=== PATIENT | female | born 1980 | race Caucasian/White ===

== ENCOUNTER → 2019-07-07 09:27 | Outpatient (CLI) | payer BC, SELFPAY ==
--- NOTE | 2019-07-07 09:34 | US_ITS ---
PROCEDURE: US FNA THYROID CLINICAL INDICATION: thyroid nodule Dominant right thyroid nodule COMPARISON: No exams were available for comparison TECHNIQUE: Following obtaining informed consent, using aseptic technique and local anesthesia with buffered lidocaine, fine-needle aspiration was performed of the nodule of interest using sonographic guidance. 3 passes were made into the nodule with a 21-gauge needle. Specimen was given to cytology. FINDINGS: CYTOLOGY: Nondiagnostic IMPRESSION: Nondiagnostic FNA. Recommend repeat with pathologist present The patient tolerated the procedure well without evidence of immediate complications and left the ultrasound suite in stable condition. Dictated by: Eleazar Rodriguez MD 07/18/2019 12:17 Electronically signed by Eleazar Rodriguez MD in [place] 07/18/2019 12:17
== END ==
PROVIDERS: PCP General Practice; Visit Provider Otolaryngology
DX: E04.1 Nontoxic single thyroid nodule (principal)
CPT/HCPCS: 10005; 76942

== ENCOUNTER 2023-12-28 17:54 | Emergency (ER) | payer BC, SELFPAY ==
[2023-12-28 17:56] VITALS: BP 148/80; PULSE 83; RESP 18; TEMP 36.9; O2SAT 97; BMI 36.6
--- NOTE | 2023-12-28 18:05 | XR_ITS ---
PROCEDURE INFORMATION: Exam: XR Right Shoulder Exam date and time: 12/28/2023 6:07 PM Age: 43 years old Clinical indication: Pain; Elbow; Right TECHNIQUE: Imaging protocol: Radiologic exam of the right shoulder. Views: 2 or more views. Total images: 3 COMPARISON: No relevant prior studies available. FINDINGS: Bones/joints: No acute fracture, joint dislocation, or AC joint separation. Mild degenerative changes AC joint. Glenohumeral joint is appropriate for age. Subacromial distance is maintained. No concerning bone lesions. Soft tissues: Unremarkable soft tissues. IMPRESSION: 1. No acute osseous abnormality. 2. Mild degenerative change of the AC joint.
--- NOTE | 2023-12-28 18:07 | XR_ITS ---
PROCEDURE INFORMATION: Exam: XR Right Elbow Exam date and time: 12/28/2023 6:18 PM Age: 43 years old Clinical indication: Pain; Elbow; Right TECHNIQUE: Imaging protocol: Radiologic exam of the right elbow. Views: 3 or more views. Total images: 3 COMPARISON: CR XR FOREARM RT 2V 12/28/2023 6:17 PM FINDINGS: Bones/joints: No acute fracture, joint dislocation, or joint effusion. No concerning bone lesions or calcifications. Joint spaces are well maintained. Soft tissues: Unremarkable soft tissues. IMPRESSION: Negative right elbow.
--- NOTE | 2023-12-28 18:08 | XR_ITS ---
PROCEDURE INFORMATION: Exam: XR Right Forearm Exam date and time: 12/28/2023 6:17 PM Age: 43 years old Clinical indication: Pain; Elbow; Right TECHNIQUE: Imaging protocol: Radiologic exam of the right forearm. Views: 2 views. Total images: 2 COMPARISON: CR XR WRIST RT 2V 12/28/2023 6:15 PM FINDINGS: Bones/joints: No acute fracture or joint dislocation. No concerning bone lesions or calcifications. Joint spaces are well maintained. Soft tissues: Unremarkable soft tissues. IMPRESSION: Negative right forearm.
--- NOTE | 2023-12-28 18:09 | XR_ITS ---
PROCEDURE INFORMATION: Exam: XR Right Hand Exam date and time: 12/28/2023 6:13 PM Age: 43 years old Clinical indication: Pain; Elbow; Right TECHNIQUE: Imaging protocol: Radiologic exam of the right hand. Views: 1 or 2 views. Total images: 3 COMPARISON: No relevant prior studies available. FINDINGS: Bones/joints: No acute fracture or joint dislocation. No concerning bone lesions or calcifications. Joint spaces are well maintained. Tiny enthesophyte base of middle phalanx index finger. Soft tissues: Unremarkable soft tissues. IMPRESSION: Negative right hand.
--- NOTE | 2023-12-28 18:10 | XR_ITS ---
PROCEDURE INFORMATION: Exam: XR Right Humerus Exam date and time: 12/28/2023 6:10 PM Age: 43 years old Clinical indication: Pain; Elbow; Right TECHNIQUE: Imaging protocol: Radiologic exam of the right humerus. Views: 2 or more views. Total images: 2 COMPARISON: CR Shoulder R 12/28/2023 6:07 PM FINDINGS: Bones/joints: No acute fracture or joint dislocation. No concerning bone lesions or calcifications. Joint spaces are well maintained. Mild degenerative change AC joint. Soft tissues: Unremarkable soft tissues. IMPRESSION: Negative right humerus.
--- NOTE | 2023-12-28 18:11 | XR_ITS ---
PROCEDURE INFORMATION: Exam: XR Right Wrist Exam date and time: 12/28/2023 6:15 PM Age: 43 years old Clinical indication: Pain; Elbow; Right TECHNIQUE: Imaging protocol: Radiologic exam of the right wrist. Views: 1 or 2 views. Total images: 3 COMPARISON: CR XR HAND RT 2V 12/28/2023 6:13 PM FINDINGS: Bones/joints: No acute fracture or joint dislocation. No concerning bone lesions or calcifications. Joint spaces are well maintained. Carpal alignment is preserved. Soft tissues: Question mild soft tissue swelling. IMPRESSION: 1. Negative right wrist. 2. Question mild soft tissue swelling.
--- NOTE | 2023-12-28 18:19 | ED_ITS ---
Discharge Plan Disposition Patient Disposition: Home, Self-Care Condition: Good Prescriptions Prescriptions: New prednisone 20 mg tablet 20 mg PO BID 3 Days Qty: 6 0RF No Action omeprazole 40 mg capsule,delayed release(DR/EC) 40 mg PO DAILY Patient Comments: TAKE 1 CAPSULE BY MOUTH ONCE DAILY levothyroxine 150 mcg tablet 150 mcg PO DAILY Patient Comments: TAKE 1 TABLET BY MOUTH ONCE DAILY Referrals Follow up/Referrals: Naresh Rodriguez DO [Staff Physician] - See instructions Cameron Nolen MD [Primary Care Provider] - See instructions Activity Restrictions/Add. Instructions Additional Instructions/Restrictions: Rest the extremity, apply ice for 15 minutes as tolerated three or four times per day, Wear the tad wrap for compression, Elevate the extremity as tolerated while you are resting. Take ibuprofen for pain. Follow up with Dr. Rodriguez (orthopedics) if you continue to have symptoms of elbow pain. I put in a referral but you need to call his office and schedule an appointment. Follow up with your regular doctor. GO TO THE ER FOR ANY WORSENING SYMPTOMS Clinical Impressions Clinical Impression: Allergic reaction, Contusion of elbow, Pain of right arm Instructions Patient Instructions: DI for General Allergic Reactions, How to Apply an Elastic Wrap on Elbow Discharge ED Provider: Alex Hoffman [facility] [place] General Stated complaint: AO05/18@1500 fall RT arm inj, insect bite Time Seen by Provider: 12/28/23 18:18 Related Data Home Medications Medication Instructions Recorded Confirmed levothyroxine 150 mcg tablet 150 mcg PO DAILY 12/28/23 12/28/23 omeprazole 40 mg capsule,delayed 40 mg PO DAILY 12/28/23 12/28/23 release Previous Rx's Medication Instructions Recorded prednisone 20 mg tablet 20 mg PO BID 3 days #6 tabs 12/28/23 Allergies Allergy/AdvReac Type Severity Reaction Status Date / Time No Known Allergies Allergy Verified 12/28/23 18:49 [facility] Disclaimer: The information contained in this section may have been updated after the patient was seen, as this information can be updated by other users. Social History Smoking Status: Never smoker alcohol intake: never current occupational status: employed Travel in the last 8 weeks: None ROS Obtained: Yes All systems reviewed & no additional complaints except as documented Constitutional Constitutional: Denies chills and Denies fever(s) Eyes Eyes: Denies eye discharge ENT Ears, Nose, Mouth, and Throat: Denies dizziness, Denies otalgia and Denies sore throat Cardiovascular Cardiovascular: Denies chest pain Respiratory Respiratory: Denies shortness of breath, Denies chest congestion, Denies cough, Denies stridor and Denies wheezing Gastrointestinal Gastrointestingal: Denies nausea or vomiting Musculoskeletal Musculoskeletal: Reports as per HPI Integumentary/Breasts Skin/Breast: Reports redness and Denies rash Neurologic Neurologic: Denies dizziness and Denies paresthesias Allergic/Immunologic Allergic/Immunologic: Denies wheezing Physical Exam General General appearance: alert and in no apparent distress Head Head exam: atraumatic, normocephalic and normal inspection Eye Eye exam: Present normal appearance, PERRL and EOMI ENT ENT exam: Present normal exam, normal oropharynx, mucous membranes moist, TM's normal bilaterally and normal external ear exam Neck Neck exam: Present normal inspection, full ROM and trachea midline; Absent meningismus or lymphadenopathy Chest Chest inspection: Present normal inspection and symmetric chest wall rise; Absent tenderness Respiratory Respiratory exam: Present normal lung sounds bilaterally; Absent respiratory distress Cardiovascular Cardiovascular exam: Present regular rate and normal rhythm; Absent JVD Abdominal Exam Abdominal exam: Present soft and normal bowel sounds; Absent distention, tenderness or guarding Extremities Exam Extremities exam: Present normal capillary refill; Absent calf tenderness Expanded Upper Extremity Exam Right: Shoulder exam: Present full ROM and tenderness; Absent swelling, abrasion, laceration, ecchymosis, deformity, crepitus, dislocation, erythema or tenderness over AC joint Arm exam: Present full ROM, tenderness and abrasion; Absent swelling Elbow exam: Present full ROM, tenderness, swelling and abrasion; Absent laceration, ecchymosis, deformity, crepitus, dislocation, erythema, effusion, pain w/ pronation/supination or tenderness over radial head Forearm/Wrist exam: Present full ROM, tenderness and swelling; Absent abrasion, laceration, ecchymosis, deformity, crepitus, dislocation, erythema, tenderness over anatomical snuff box or pain with axial thumb loading Hand exam: Present full ROM, tenderness, swelling and erythema; Absent abrasion, laceration, skin avulsion, ecchymosis, deformity, crepitus, dislocation, amputation, nail avulsion or subungual hematoma Neuromotor exam: Normal wrist extension, thumb opposition, thumb IP flexion, thumb adduction and fingers 2-5 abduction Neurosensory exam: Normal radial nerve, ulnar nerve and median nerve Vascular exam: Normal capillary refill, radial pulse and ulnar pulse Back Exam Back exam: Present normal inspection; Absent tenderness Neurological Exam Neurological exam: Present alert and oriented X3 Psychiatric Psychiatric exam: Present normal affect and normal mood Skin Skin exam: Present warm, dry, intact and normal color Lymphatic Lymphatic Findings: no adenopathy Medical Decision Making Medical Records Medical records reviewed: No I reviewed the patient's medical records. Axel Inquiry Pt receiving controlled substance: No Orders (Tests/Meds): ORDERS Category Date Time Status Elbow XR right minimum 3 views [XR elbow RT min 3V] Exams 12/28/23 18:07 Ordered Stat Forearm XR right 2 views [XR forearm RT 2V] Stat Exams 12/28/23 18:08 Ordered Hand XR right 2 views [XR hand RT 2V] Stat Exams 12/28/23 18:09 Ordered Humerus XR right [XR humerus RT] Stat Exams 12/28/23 18:10 Ordered Shoulder XR right miminum 2 views [XR shoulder RT min Exams 12/28/23 18:05 Ordered 2V] Stat Wrist XR right 2 views [XR wrist RT 2V] Stat Exams 12/28/23 18:11 Ordered Procedures Risk/Benefits of Procedure(s) Were Explained: Yes Orthopedic Splinting/Casting Injury #1: Side: right Upper Extremity Injury Location: elbow Upper Extremity Immobilizer: Tad wrap and applied by nurse/dr doty Post Cast/Splinting Neuro Status: intact and no change Post Cast/Splinting Vasc Status: intact and no change
[2023-12-28 19:26] VITALS: BP 148/80; PULSE 83; RESP 18; TEMP 36.9; O2SAT 97
== END 2023-12-28 19:26 | disposition home or self-care (01) ==
PROVIDERS: Emergency Provider Nurse Practitioner Family; PCP Family Medicine
DX: M79.601 Pain in right arm (principal); S50.01XA Contusion of right elbow, initial encounter; T78.40XA Allergy, unspecified, initial encounter; W19.XXXA Unspecified fall, initial encounter
CPT/HCPCS: 73030; 73060; 73080; 73090; 73100; 73120; 99204; 99212; G0463

== ENCOUNTER 2025-07-05 10:52 | Outpatient (CLI) | payer BC, SELFPAY | END 2025-07-05 23:59 | disposition home or self-care (01) | LOC: RT 10:56 | PROVIDERS: PCP Nurse Practitioner Adult Health; Visit Provider Internal Medicine | DX: I49.1 Atrial premature depolarization (principal); I49.3 Ventricular premature depolarization; R00.8 Other abnormalities of heart beat | CPT/HCPCS: 93270 ==

== ENCOUNTER 2025-07-09 14:47 | Outpatient (CLI) | payer BC, SELFPAY ==
--- OUTSIDE RECORDS SUMMARY | 2025-07-08 04:03 | XMS_ITS | Continuity of Care Document ---
Author Organization [facility] Phone Care Team Providers Care Envelope Patternmaker Name Role Phone AUNDREA WALSH Admitting AUNDREA WALSH Primary Attending DUC SAMAYOA Primary Care [phone] AUNDREA WALSH Unavailable ALLERGIES AND ADVERSE REACTIONS ALLERGIES AND ADVERSE REACTIONS Code System Allergy Substance Adverse Reaction Date Reaction (Severity) Comment Status Reported By Updated By No Known Allergies [id number] on September 22, 2024 11:56:54 PM [facility] RESULTS Patient: KEMI Osman Date of : [birth year] 9 LABORATORY RESULTS Information is not available LABORATORY NARRATIVE RESULTS Information is not available RADIOLOGY RESULTS ORDER 100: SHELLY DIAG BILAT 2D AND 3D (LOINC: 06611-8) ORDER DATE: July 06, 2025 7:33:00 PM [facility] PERFORMING LAB: [address] [id number] Final Result Date: July 06, 2025 8:03:[address] [address] Name: GURVINDER MCMULLEN Exam Date: 07/06/2025 : 1980 Age 45 years Gender: F Physician: AUNDREA WALSH Facility: [facility] HSV: Outpatient Exam: SHELLY DIAG BILAT 2D & 3D Exam: 1.Bilateral Diagnostic Mammogram with 2D and 3D (tomosynthesis)imaging 2.Left Breast Ultrasound Clinical indication: Palpable left breast lump Comparison: Exams to 2021 TECHNIQUE: Diagnostic Bilateral 2D mammography and 3D (tomosynthesis) imaging were performed.Targeted ultrasound assessing carrero-scale and color flow performed. BREAST DENSITY:The breasts are heterogeneously dense, which may obscure small masses. FINDINGS: Mammography: A radiopaque marker denotes the area of palpable concern in the outer left breast. Subjacent to the marker, there is no suspicious finding. No suspicious masses, calcifications, or regions of distortion in either breast. Ultrasound: Left breast, 2:30, 4 cm from nipple in the area of concern there is a circumscribed parallel predominantly anechoic mass with thin septations measuring 9 x 6 x 11 mm. This is within a band of dense tissue IMPRESSION: Probably benign probable complicated cysts/cluster of cysts in the left breast 2:30 corresponding to the palpable lump. Recommendation: Follow-up left mammogram and ultrasound recommended in 6 months The results of this report will be reported to the patient by letter in layman's terms. ACR BI-RADS:3 - Probably Benign Findings Mammography does not detect approximately 10-15% of breast cancers. A normal mammogram does not exclude breast cancer in a patient with palpable mass or abnormal findings on physical examination. These patients may need biopsies and when clinically indicated a biopsy should not be postponed because of a normal mammogram. If the patient has breast surgery or biopsy, FDA/MQSA Regulatory Guidelines mandate that this facility receive pathologic results for follow-up correlation. Electronically signed by: Samir Bianchi MD 07/06/2025 03:48 PM [facility] Dictated By: SAMIR BIANCHI Legally authenticated by JEFF Mccarty 2025-07-06 15:03:45 Transcribed By: Transcribed On: 07/06/2025 3:03 PM Electronically signed by: SAMIR BIANCHI 07/06/2025 Thank you for referring GURVINDER MCMULLEN to [facility]. Legally authenticated by JEFF Mccarty 2025-07-06 15:03:45 ORDER 200: US BREAST LIMITED LT (LOINC: 79114-2) ORDER DATE: July 06, 2025 8:11:00 PM [facility] PERFORMING LAB: [address] [id number] Final Result Date: July 06, 2025 8:03:[address] [address] Name: GURVINDER MCMULLEN Exam Date: 07/06/2025 : 1980 Age 45 years Gender: F Physician: AUNDREA WALSH Facility: [facility] HSV: Outpatient Exam: US BREAST LIMITED LT Exam: 1.Bilateral Diagnostic Mammogram with 2D and 3D (tomosynthesis)imaging 2.Left Breast Ultrasound Clinical indication: Palpable left breast lump Comparison: Exams to 2021 TECHNIQUE: Diagnostic Bilateral 2D mammography and 3D (tomosynthesis) imaging were performed.Targeted ultrasound assessing carrero-scale and color flow performed. BREAST DENSITY:The breasts are heterogeneously dense, which may obscure small masses. FINDINGS: Mammography: A radiopaque marker denotes the area of palpable concern in the outer left breast. Subjacent to the marker, there is no suspicious finding. No suspicious masses, calcifications, or regions of distortion in either breast. Ultrasound: Left breast, 2:30, 4 cm from nipple in the area of concern there is a circumscribed parallel predominantly anechoic mass with thin septations measuring 9 x 6 x 11 mm. This is within a band of dense tissue IMPRESSION: Probably benign probable complicated cysts/cluster of cysts in the left breast 2:30 corresponding to the palpable lump. Recommendation: Follow-up left mammogram and ultrasound recommended in 6 months The results of this report will be reported to the patient by letter in layman's terms. ACR BI-RADS:3 - Probably Benign Findings Mammography does not detect approximately 10-15% of breast cancers. A normal mammogram does not exclude breast cancer in a patient with palpable mass or abnormal findings on physical examination. These patients may need biopsies and when clinically indicated a biopsy should not be postponed because of a normal mammogram. If the patient has breast surgery or biopsy, FDA/MQSA Regulatory Guidelines mandate that this facility receive pathologic results for follow-up correlation. Electronically signed by: Samir Bianchi MD 07/06/2025 03:48 PM [facility] Dictated By: SAMIR BIANCHI Legally authenticated by JEFF Mccarty 2025-07-06 15:03:45 Transcribed By: Transcribed On: 07/06/2025 3:03 PM Electronically signed by: SAMIR BIANCHI 07/06/2025 Thank you for referring KEMIGURVINDER to [facility]. Legally authenticated by JEFF Mccarty 2025-07-06 15:03:45 PATHOLOGY NARRATIVE RESULTS Information is not available MICROBIOLOGY RESULTS No Micro Labs/Results Exist for Patient BLOOD ADMIN RESULTS Information is not available MEDICATIONS HOME MEDICATIONS Status RXNORM NDC Medication Dose Route Frequency Dates Comments Reported By Updated By Drug Treatment Unknown DISCHARGE MEDICATIONS Status RXNORM NDC Medication Dose Route Frequency Dates Dis pense Data Comments Physician Updated By No Discharge Medication Info rmation Available INPATIENT MEDICATIONS Status RXNORM NDC Medication Dose Route Frequency Rat e Quantity Dates Indication Dispense Data Comments Physician Updated By No Inpatient Medication Info rmation Available SOCIAL HISTORY SOCIAL HISTORY - Smoking Status SNOMED-CT Social History Element Description Effective Dates Offered Cessation Comment Updated By [id number] Historical Tobacco smoking status Never Smoked [id number] on September 22, 2024 11:57:08 PM [facility] SOCIAL HISTORY - Gender Sex: Female SOCIAL HISTORY - Status : status i nformation is not available Intention in Next Year: intention information is not available SOCIAL HISTORY - Assessments Code System Description Status Date Value of Assessment Updated By Comment Assessment Information is no t available SOCIAL HISTORY - [place] Affiliation [place] information is not av ailable SOCIAL HISTORY - Legal Sex Legal Sex information is not available SOCIAL HISTORY - Sexual Behavior Sexual Orientation Gender Identity SNOMED-CT Description SNO MED -CT Description Activity Level No of Partners Partner Type UpdatedBy Information is not available SOCIAL HISTORY - Occupation Occupation information is no t available HEALTH CONCERNS Problems Concern Status Health Concern problem infor mation not available. Smoking Status Status Years Used Consumed packs p er day Health Concern smoking histo ry information not available. Family History Concern Status Health Concern family histor y information not available. ENCOUNTERS ENCOUNTER INFORMATION Reason for Visit UNSPECIF LUMP IN THE LEFT BREAST OVERLAPPING QUADRANTS Admission July 06, 2025 6:49:[address] [address] Discharge July 06, 2025 6:49:00 PM [facility] DISCHARGED TO HOME OR SELF CARE ENCOUNTER DIAGNOSES Notes information is not carter ilable. Code System Diagnosis Onset Date Diagnosis information is not available. ABSTRACT DIAGNOSES Code System Diagnosis Updated By Abatement Date N63.25 ICD10 UNSPECIFIED LUMP IN THE LEFT BREAST, OVERLAPPING QUADRANTS [id number] on June 29, 2025 4:41:40 PM [facility] N63.25 ICD10 UNSPECIFIED LUMP IN THE LEFT BREAST, OVERLAPPING QUADRANTS [id number] on July 08, 2025 9:02:59 AM [facility] CARE TEAM Care Envelope Patternmaker Role AUNDREA WALSH Admitting AUNDREA WALSH Primary Attending DUC SAMAYOA Primary Care AUNDREA WALSH Referring CARE TEAM CARE diet aide Role on Team Location Telecom Status Start Date End Huang e Updated By DANITA XAVIER APRN PCP normal June 29, 2025 4:41:41 PM [facility] July 06, 2025 6:49:00 PM [facility] [id number] on June 29, 2025 4:41:41 PM [facility] JILLIAN GUILLAUME Referring normal June 29, 2025 4:41:41 PM [facility] July 06, 2025 6:49:00 PM [facility] [id number] on June 29, 2025 4:41:41 PM [facility] JILLIAN GUILLAUME Attending normal June 29, 2025 4:41:41 PM [facility] July 06, 2025 6:49:00 PM [place] [id number] on June 29, 2025 4:41:41 PM [facility] JILLIAN GUILLAUME Admitting normal June 29, 2025 4:41:41 PM [facility] July 06, 2025 6:49:00 PM [place] [id number] on June 29, 2025 4:41:41 PM [facility]
--- OUTSIDE RECORDS SUMMARY | 2025-07-09 14:50 | XMS_ITS | Continuity of Care Document ---
Author Organization [facility] Address [address] [place] [address] Assessment No assessment recorded. 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 Referral None recorded. Procedures None recorded. Surgeries None recorded. Imaging None recorded. Medication Orders ondansetr on 8 mg disintegr ating tablet [address] [facility], [address] [place], [address], 05/06/2025 08:28:14 levothyro xine 125 mcg tablet [address] [facility], [address] [place], [address], 05/06/2025 08:28:15 Wegovy 2.4 mg/0.75 mL subcutane ous pen injector [address] [facility], [address] [place], [address], 05/06/2025 08:28:14 Patient TargetsNo targets recorded. Patient Instructions Encounter Date Encounter Id Patient Instructions Last Modified By Organization Details Last Modified Time 05/06/2025 [id number] body mass index: care instructions Not available 05/06/2025 08:28:14 learning about healthy weight Not available 05/06/2025 08:28:14 RTC in 3 months or sooner as needed. Will plan to check TSH at that appointment. Not available 05/06/2025 08:30:35 Reason for Referral None Reported. Results Created Date Observation Date Name Description Value Unit Range Abnormal Flag Note LastModifiedBy Organization Detail LastModifiedTime 07/06/2007/06/2025 US, stellaas t, unila teral No observ ation record ed. [email or web address] [facility] [address] [place] [address] [place], [address], 07/07/2025 13:17:12 07/06/2007/06/2025 MAMMO , diagn ostic , digit al, bilat eral No observ ation record ed. [email or web address] (Central Scheduling) [address] [facility] [place], [address], 07/07/2025 16:57:24 07/06/2007/06/2025 priya ANAYA, unila teral No observ ation record ed. [address] (Central Scheduling) [address] [facility] [place], [address], 07/07/2025 16:57:25 07/06/2007/06/2025 MAMMO , diagn ostic , digit al, bilat eral No observ ation record ed. [email or web address] [facility] [address] [place] [address] [place], [address], 07/07/2025 13:17:28 Result Notes None recorded. Problems Name Problem SNOMED Code Status Onset Date Resolution Date Notes Provider Name and Address Organization Details Recorded Time Hypothyroid ism 19588904 Active Mallory Montalvo MD [facility] [address], [place], [address], [place] [facility] 11/13/202 3 17:11:22 Gastroesoph ageal reflux disease without esophagitis 174876208 Active 2020 Mallory Montalvo MD [address], [place], [address], [place] [facility] 2 17:42:38 Obstructive sleep apnea syndrome 69159210 Active 2021 Mallory Montalvo MD [address], [place], [address], [place] [facility] 2 17:42:38 Mixed hyperlipide bruna 700332613 Active 2021 Mallory Montalvo MD [address], [place], [address] [facility] 3 17:00:17 Body mass index 30+ - obesity 286513455 Active 2022 Francoisesantosh Zuluaga , ASSISTED LIVING NURSING DIRECTOR [address], [place], [address], [place] [facility] 5 09:04:31 Asthma 088083579 Active 2022 Mallory Montalvo MD [address], [place], [address], [place] [facility] 3 17:32:13 History of total hysterectom y 243402835 Active 2022 Ruth Sinclair, ASSISTED LIVING NURSING DIRECTOR [address], [place], [address], [place] [facility] 3 15:46:38 Elevated blood-press ure reading without diagnosis of hypertensio n 567923251 Active 2022 Mallory Montalvo MD [address], [place], [address], [place] [facility] 3 17:11:26 Hypertensiv e disorder 52111950 Active 2022 Mallory Montalvo MD [address], [place], [address], [place] [facility] 3 17:13:11 Acute bronchitis 47351208 Completed 202306/22/2024 Estrellita Osorio [facility], [place] - [facility] 5 11:47:12 Acute diarrhea 067462158 Completed 202306/22/2024 Estrellita Osorio null, [place] - [facility] 4 08:49:06 Cough 13108358 Completed 202306/22/2024 Estrellita Osorio null, [place] - [facility] 5 11:47:33 Acute gastroenter itis 43304686 Completed 202306/22/2025 Estrellita Osorio [place] [facility] 5 11:47:37 Acute infectious nonbacteria l gastroenter itis 325279156 Completed 202306/22/2025 Estrellita Osorio null[place] - [facility] 5 11:47:24 External hemorrhoids 29381912 Active 2023 Mallory Montalvo MD [address], [place], [address], [place] [facility] 4 13:59:51 Folic acid deficiency 208887617 Active 2023 Francoise Zuluaga , ASSISTED LIVING NURSING DIRECTOR [address], [place], [address], [place] [facility] 4 11:02:55 Vitamin D deficiency 99652976 Active 2023 Francoise Zuluaga , ASSISTED LIVING NURSING DIRECTOR [address], [place], [address], [place] [facility] 5 09:06:21 Acute maxillary sinusitis 54893417 Completed 202306/22/2025 Estrellita Osorio null[place] - [facility] 5 11:47:35 Obese 314924706 Active 2023 Francoise Zuluaga , ASSISTED LIVING NURSING DIRECTOR [address], [place], [address], [place] [facility] 4 10:11:24 Obesity 784382049 Active 2023 Francoise Zuluaga , ASSISTED LIVING NURSING DIRECTOR [address], [place], [address], [place] [facility] 4 10:11:26 Acute bronchitis 76965365 Completed 202306/22/2025 Estrellita Osorio null[place] [facility] 5 11:47:12 Cough 13235086 Completed 202306/22/2025 Estrellita Osorio null[place] - [facility] 5 11:47:33 Anxiety 57753966 Active 2024 Francoise Zan , ASSISTED LIVING NURSING DIRECTOR [address], [place], [address], [place] [facility] 5 16:47:04 Dyslipidemi a 985826234 Active 2024 Francoiseelana Zuluaga , ASSISTED LIVING NURSING DIRECTOR [address], [place], [address], [place] [facility] 5 09:09:59 Hyperkalemi a 84621164 Active 2024 Francoiseelana Zuluaga , ASSISTED LIVING NURSING DIRECTOR [address], [place], [address], [place] [facility] 5 09:42:55 Nausea 197727111 Active 2024 Francoise Zan , ASSISTED LIVING NURSING DIRECTOR [address], [place], [address], [place] [facility] 5 08:13:42 Overweight in adulthood with body mass index of 25 or more but less than 30 979409366 Active 2024 Ruth Sinclair APRN [address], [place], [address], [place] [facility] 5 09:25:22 Breast lump 77966735 Active 2024 Ruth Sinclair APRN [address], [place], [address] [facility] 5 09:26:24 Irregular heart beat 919994789 Active 2024 Ruth Sinclair APRN [address], [place], [address] [facility] 5 09:30:41 Problem Notes None recorded. Procedures Surgical History Date Name Laterality Status Provider Name and Address Organization Details Recorded Time 025 Medication Reconcilliation completed Makenzie Foster [place] - [facility] 10/01/2024 07:45:53 025 Date of Last Mammogram completed Ruth Sinclair, ASSISTED LIVING NURSING DIRECTOR [address], [place], [address], [place] [facility] 08/24/2024 10:05:24 024 anal fissurectomy completed Estrellita Osorio [place] - [facility] 06/22/2024 08:58:03 024 Medication Reconcilliation completed Maritza Larkin [place] - [facility] 10/23/2023 13:28:53 024 Medication Reconcilliation completed Leigh Nunez [place] [facility] 10/17/2023 13:13:57 023 Medication Reconcilliation completed Maritza Larkin [place] - [facility] 08/14/2022 16:49:21 010 laparoscopic total hysterectomy completed Estrellita Osorio [place] - [facility] 06/17/2023 15:20:34 010 Date of Last Pap Smear completed Estrellita Schumacher [place] - [facility] 04/09/2022 15:35:45 Eye Surgery completed Estrellita Osorio [place] - [facility] 06/17/2023 15:17:49 Dilation and Curettage, sharp completed Ruth Sinclair, ASSISTED LIVING NURSING DIRECTOR [address], [place], [address], [place] [facility] 06/17/2023 15:46:20 Diagnostic Laparoscopy completed Jayna Bhakta [place] - [facility] 08/01/2016 12:18:04 Thyroid Surgery completed Ruth grullon, ASSISTED LIVING NURSING DIRECTOR [address], [place], [address], [place] [facility] 06/17/2023 15:45:52 Tubal Ligation completed Estrellita Schumacher [place] - [facility] 04/09/2022 15:37:32 Imaging Results None recorded. Procedure Notes None recorded. Medical Equipment None Reported. Allergies No known drug allergies Medications Name Sig Start Date Stop Date Status Note LastModified by Organization Details LastModified Time Prescript ion - Prior Authoriza tion Request active Not Available Not Available Not Available amoxicill in 500 mg capsule take 1 capsule (500 mg) by oral route every 8 hours for 10 days 10/08 completed amoxicil ricky 500 mg oral capsule; Recorded Status: Recorded on: 10/02/19 14 1:49PM;D iscontin ued Status: Disconti nued on: 10/08/19 14 10:01AM; User: [email or web address]; Est. Completi on: 10/13/19 14;Indic ation: Acute Bacteria l Sinusiti s - (08.4619 00) Not Available Not Available Not Available promethaz ine-DM 6.25 mg-15 mg/5 mL oral syrup take 5 millilit ers by oral route every 4 hours as needed 09/13 completed prometha zine-DM 6.25-15 mg/5 mL oral syrup;Re corded Status: Recorded on: 07/04/20 11 4:16PM;D iscontin ued Status: Disconti nued on: 09/13/19 12 4:30PM;U ser: [email or web address]; Indicati on: Cough - (16.3168 00);Prin danielle: 07/04/20 11 Not Available Not Available Not Available doxycycli ne hyclate 100 mg capsule TAKE 1 CAPSULE BY MOUTH TWICE DAILY FOR BRONCHIT IS FOR 7 DAYS 10/16 completed Not Available Not Available Not Available Toprol XL 25 mg tablet,ex tended release take 1 tablet (25 mg) by oral route once daily 07/28 completed Toprol XL 25 mg oral tablet extended release 24 hr;Presc ribe Status: Prescrib ed on: 07/13/20 15 2:14PM;U ser: caleb; Est. Completi on: 01/09/20 16;Pharm acyVerif ied: 07/13/20 15 2:14PM Not Available Not Available Not Available albuterol sulfate 2.5 mg/3 mL (0.083 %) solution for nebulizat ion active Not Available Not Available Not Available azithromy hugo 250 mg tablet take 2 tablets (500 mg) by oral route once daily for 1 day then 1 tablet (250 mg) by oral route once daily for 4 days 11/16 completed Not Available Not Available Not Available fluconazo le 150 mg tablet take 1 tablet by oral route daily for 2 days 02/04 completed Not Available Not Available Not Available benzonata te 200 mg capsule Take 1 capsule 3 times a day by oral route as needed for 7 days, for cough. 02/04 completed Not Available Not Available Not Available citalopra m 10 mg tablet Take 1 tablet every day by oral route. 05/18 completed Not Available Not Available Not Available clarithro mycin 500 mg tablet Take 1 tablet twice a day by oral route with meals. 08/25 completed Not Available Not Available Not Available hydrocodo ne 5 mg-acetam inophen 325 mg tablet TAKE 1 TABLET BY MOUTH EVERY 6 HOURS 05/18 completed Not Available Not Available Not Available phenazopy ridine 200 mg tablet TAKE 1 TABLET BY MOUTH THREE TIMES DAILY NEEDED 04/09 completed Not Available Not Available Not Available metronida zole 0.75 % (37.5 mg/5 gram) vaginal gel insert 1 applicat orful (37.5 mg) by vaginal route once daily at bedtime for 5 days 03/07 completed metronid azole 0.75 % vaginal gel;Rolly rded Status: Recorded on: 09/06/19 11 10:14AM; Disconti nued Status: Disconti nued on: 03/07/20 11 2:30PM;U ser: gillisa; Est. Completi on: 09/11/19 11;Indic ation: Bacteria l Vaginosi s - (10.6169 00);Prin danielle: 09/06/19 11 Not Available Not Available Not Available ondansetr on HCl 4 mg tablet TAKE 1 TABLET BY MOUTH EVERY 6 TO 8 HOURS NEEDED FOR 5 DAYS 05/18 completed Not Available Not Available Not Available prednison e 20 mg tablet TAKE 1 TABLET BY MOUTH TWICE DAILY FOR 3 DAYS 05/18 completed Not Available Not Available Not Available Synthroid 100 mcg tablet take 1 tablet (100 mcg) by oral route once daily for 30 days 03/10 completed Synthroi d 100 mcg oral tablet;R ecorded Status: Recorded on: 09/22/19 13 3:38PM;D iscontin ued Status: Disconti nued on: 03/10/20 13 2:01PM;U ser: earlywin ec;Est. Completi on: 11/22/19 13 Not Available Not Available Not Available Tubersol 5 tub. unit/0.1 mL intraderm al injection solution Place 0.1ml intrader salvador now 07/28 completed Not Available Not Available Not Available clonazepa m 0.5 mg tablet take 1 tablet (0.5 mg) by oral route 2 times per day PRN for Panic attacks 06/05 completed clonazep am 0.5 mg oral tablet;R ecorded Status: Recorded on: 09/13/19 12 4:38PM;D iscontin ued Status: Disconti nued on: 06/05/20 12 1:45PM;U ser: earlywin ec Not Available Not Available Not Available diphenoxy late-atro pine 2.5 mg-0.025 mg tablet TAKE 1 TABLET BY MOUTH 4 TIMES DAILY NEEDED FOR DIARRHEA FOR 3 DAYS 12/04 completed Not Available Not Available Not Available Nexium 40 mg capsule,d elayed release take 1 capsule by oral route daily for 30 days 02/10 completed Nexium 40 mg oral capsule, delayed release( DR/EC);P rescribe Status: Prescrib ed on: 09/01/19 15 9:25AM;D iscontin ued Status: Disconti nued on: 02/11/20 15 12:52PM; User: [email or web address] ;EstRadhika Bassett on: 11/01/19 15;Pharm acyVanthonyf ied: 09/01/19 15 9:25AM Not Available Not Available Not Available amlodipin e 2.5 mg tablet TAKE 1 TABLET BY MOUTH ONCE DAILY FOR 30 DAYS 07/23 completed Not Available Not Available Not Available metronida zole 500 mg tablet take 1 tablet (500 mg) by oral route 2 times per day for 7 days 02/04 completed Not Available Not Available Not Available hydroxyzi ne HCl 50 mg tablet 02/04 completed Not Available Not Available Not Available amlodipin e 5 mg tablet TAKE 1 TABLET BY MOUTH ONCE DAILY AT BEDTIME 12/04 completed Not Available Not Available Not Available ciproflox acin 500 mg tablet take 1 tablet (500 mg) by oral route every 12 hours for 7 days 12/04 completed Not Available Not Available Not Available sulfameth oxazole 800 mg-trimet hoprim 160 mg tablet TAKE 1 TABLET BY MOUTH TWICE DAILY 04/09 completed Not Available Not Available Not Available omeprazol e 40 mg capsule,d elayed release TAKE 1 CAPSULE BY MOUTH ONCE DAILY active Not Available Not Available No t Available triamcino lone acetonide 0.1 % topical cream apply a thin layer to the affected area(s) by topical route 3 times per day 12/21 completed Not Available Not Available Not Available acyclovir 800 mg tablet Take 1 tablet 5 times a day by oral route for 10 days. 04/09 completed Not Available Not Available Not Available ondansetr on 8 mg disintegr ating tablet PLACE 1 TABLET ON THE TONGUE TWICE A DAY NEEDED. active Not Available Not Available No t Available Kenalog 40 mg/mL suspensio n for injection Take 1 mL by injectio n route. 08/25 completed Not Available Not Available Not Available ceftriaxo ne 1 gram solution for injection Take 1 g by injectio n route. 09/02 completed Not Available Not Available Not Available citalopra m 20 mg tablet Take 1 tablet every day by oral route. 11/16 completed patient stopped. Was feeling better. Not Available Not Available Not Available pravastat in 10 mg tablet take 1 tablet (10 mg) by oral route once daily 06/06 completed Not Available Not Available Not Available Euthyrox 112 mcg tablet take 1 tablet (112 mcg) by oral route once daily 04/22 completed Not Available Not Available Not Available phenazopy ridine 100 mg tablet Take 1 tablet 3 times a day by oral route as needed for 10 days. 07/28 completed Not Available Not Available Not Available Diamond 180 mg tablet take 1 tablet (180 mg) by oral route once daily for 30 days 07/04 completed Diamond 180 mg oral tablet;R ecorded Status: Recorded on: 12/30/19 10 10:55AM; Disconti nued Status: Disconti nued on: 07/04/20 11 3:50PM;U ser: [email or web address];Es t. Completi on: 03/29/20 10;Indic ation: Allergic Rhinitis - (4779 00);Prin danielle: 12/30/19 10 Not Available Not Available Not Available pantopraz ole 40 mg tablet,de layed release TAKE 1 TABLET BY MOUTH TWICE DAILY 05/10 completed Not Available Not Available Not Available oseltamiv ir 75 mg capsule TAKE ONE (1) CAPSULE TWICE A DAY BY ORAL ROUTE FOR FIVE (5) DAYS. 08/15 completed Not Available Not Available Not Available ferrous sulfate 325 mg (65 mg iron) tablet take 1 tablet (325 mg) by oral route 3 times per day for 30 days 12/12 completed ferrous sulfate 325 mg (65 mg iron) oral tablet;R ecorded Status: Recorded on: 04/14/20 09 6:23PM;D iscontin ued Status: Disconti nued on: 12/13/19 10 2:32PM;U ser: [email or web address] ;Est. Completi on: 10/12/19 10 Not Available Not Available Not Available levothyro xine 125 mcg tablet TAKE 1 TABLET BY MOUTH ONCE DAILY active Not Available Not Available No t Available levothyro xine 150 mcg tablet TAKE 1 TABLET BY MOUTH ONCE DAILY 02/04 completed Not Available Not Available Not Available Synthroid 50 mcg tablet 1 tablet PO BID 06/05 completed Synthroi d 50 mcg oral tablet;R ecorded Status: Recorded on: 09/13/19 12 4:35PM;D iscontin ued Status: Disconti nued on: 06/05/20 12 1:45PM;U ser: earlywin ec Not Available Not Available Not Available cephalexi n 500 mg tablet take 1 tablet (500 mg) by oral route every 12 hours for 7 days 08/23 completed cephalex in 500 mg oral tablet;R ecorded Status: Recorded on: 05/16/20 09 5:55PM;D iscontin ued Status: Disconti nued on: 08/23/19 10 3:08PM;U ser: calvom;E st. Completi on: 05/23/20 09;Print ed: 05/16/20 Not Available Not Available Not Available benazepri l 20 mg tablet TAKE 1 TABLET BY MOUTH ONCE DAILY 12/04 completed Not Available Not Available Not Available hydrocort isone 2.5 % topical cream APPLY A THIN LAYER TO THE AFFECTED AREA(S) BY TOPICAL ROUTE TWICE DAILY 12/04 completed Not Available Not Available Not Available hydroxyzi ne HCl 25 mg tablet TAKE 1 TABLET BY MOUTH EVERY DAY AT BEDTIME; MAY TAKE 2 IF NEEDED 07/27 completed Not Available Not Available Not Available furosemid e 20 mg tablet 04/11 completed Not Available Not Available Not Available dexametha sone sodium phosphate 4 mg/mL injection solution Inject 1 mL by intramus cular route. 11/16 completed Not Available Not Available Not Available methylpre dnisolone 4 mg tablets in a dose pack TAKE DIRECTED PER INSIDE DIRECTIO NS 11/16 completed Not Available Not Available Not Available albuterol sulfate HFA 90 mcg/actua tion aerosol inhaler INHALE 2 PUFFS BY MOUTH EVERY 4 HOURS active Not Available Not Available No t Available ondansetr on 4 mg disintegr ating tablet DISSOLVE 1 TABLET IN MOUTH EVERY 4 TO 6 HOURS FOR 5 DAYS 11/16 completed Not Available Not Available Not Available fluticaso ne propionat e 50 mcg/actua tion nasal spray,mary pension Parachute 1 spray every day by intranas al route. 02/04 completed Not Available Not Available Not Available loratadin e 10 mg tablet Take 1 tablet every day by oral route for 30 days. 07/28 completed Not Available Not Available Not Available amoxicill in 875 mg-potass ium clavulana te 125 mg tablet take 1 tablet by oral route every 12 hours for 10 days 07/27 completed Not Available Not Available Not Available Vitamin D3 25 mcg (1,000 unit) capsule take 1 capsule by oral route daily 05/10 completed Vitamin D3 1,000 unit oral capsule; Recorded Status: Recorded on: 09/15/19 13 10:06AM; User: earlywin ec Not Available Not Available Not Available Cortispor in 3.5 mg-400-10 ,000 unit/g-1 % eye ointment apply a small amount to affected eye 2 times a day 03/09 completed Cortispo rin 3.5-400- 10,000 mg-unit/ g-1% ophthalm ic ointment ;Recorde d Status: Recorded on: 02/22/20 10 11:40AM; Disconti nued Status: Disconti nued on: 03/09/20 10 10:08AM; User: [email or web address];Deloris inted: 02/22/20 10 Not Available Not Available Not Available nitrofura ntoin monohydra te/macroc rystals 100 mg capsule TAKE 1 CAPSULE BY MOUTH EVERY 12 HOURS WITH FOOD 09/16 completed Not Available Not Available Not Available pravastat in 08/27 completed Not Available Not Available Not Available MANINDER (28) 3 mg-0.02 mg tablet take 1 tablet by oral route once daily for 28 days 04/12 completed MANINDER (28) 3-0.02 mg oral tablet;R ecorded Status: Recorded on: 07/28/20 08 11:55AM; Disconti nued Status: Disconti nued on: 04/12/20 09 1:18PM;U ser: meeses;E st. Completi on: 11/18/19 09 Not Available Not Available Not Available Lodrane 24 D 12 mg-90 mg capsule,e xtended release take 1 capsule by oral route once daily for 30 days 12/12 completed Lodrane 24 D 12-90 mg oral capsule, extended release 24hr;Rec orded Status: Recorded on: 11/09/19 10 3:43PM;D iscontin ued Status: Disconti nued on: 12/13/19 10 2:32PM;U ser: calvom;E st. Completi on: 12/09/19 10;Print ed: 11/09/19 10 Not Available Not Available Not Available cholecalc iferol (vitamin D3) 1,250 mcg (50,000 unit) capsule TAKE 1 CAPSULE BY MOUTH ONCE A WEEK 02/04 completed Not Available Not Available Not Available cholecalc iferol (vitamin D3) 50 mcg (2,000 unit) capsule Take 1 capsule every day by oral route. 02/04 completed Not Available Not Available Not Available Solu-Medr ol (PF) 125 mg/2 mL solution for injection Take 125 mg by injectio n route. 09/02 completed Not Available Not Available Not Available multivita min with folic acid 400 mcg tablet Take 1 tablet every day by oral route. 2023 active Not Available Not Available Not Avai lable Contrave 8 mg-90 mg tablet,ex tended release TAKE TWO (2) TABLETS BY MOUTH TWICE DAILY 09/16 completed Not Available Not Available Not Available Saxenda 3 mg/0.5 mL (18 mg/3 mL) subcutane ous pen injector INJECT 0.6MG SUBCUTAN EOUSLY DAILY FOR 7 DAYS, THEN 1.2MG DAILY FOR 7 DAYS, THEN INCREASE 0.6MG WEEKLY UNTIL 3.0MG DAILY IS REACHED 11/21 completed Not Available Not Available Not Available Wegovy 2.4 mg/0.75 mL subcutane ous pen injector active Not Available Not Available Not Available Wegovy 1.7 mg/0.75 mL subcutane ous pen injector INJECT CONTENTS OF 1 PEN ONCE A WEEK 06/22 completed Not Available Not Available Not Available Wegovy 1 mg/0.5 mL subcutane ous pen injector INJECT 1 SYRINGE SUBCUTAN EOUSLY ONCE A WEEK 05/06 completed Not Available Not Available Not Available Wegovy 0.25 mg/0.5 mL subcutane ous pen injector Inject 0.5 mg every week by subcutan eous route. 11/10 completed Not Available Not Available Not Available Wegovy 0.5 mg/0.5 mL subcutane ous pen injector Inject 0.5 mL every week by subcutan eous route for 30 days. 02/03 completed Not Available Not Available Not Available Mounjaro 2.5 mg/0.5 mL subcutane ous pen injector Inject by subcutan eous route for 28 days. 10/31 completed Not Available Not Available Not Available Vitals Date Recorded Body height Body mass index (BMI) Body weight Body temperature Pain severity - 0-10 verbal numeric rating [Score] - Reported Respiratory rate Heart rate Oxygen saturation Systolic And Diastolic Provider Name and Address Organization Details Last Updated DateTime 156.85 cm 29.7 kg/m2 70827.3 7 g 97.8 [degF] 0 18 /min 81 /min 98 % 120/68 mm[Hg] Lacy Cristian [place] - [facility] 5 08:04:14 Social History Question Answer Notes LastModified by Organization Details LastModified Time Tobacco Smoking Status Never Smoker REANNA [place] - [facility] 08/01/2016 12:16:25 Able To Swim? Yes [email or web address] Information not available 06/17/2023 Do You Have An Advance Directive? No Information not available 08/01/2016 How Many Years Have You Consumed Alcohol? 19 [email or web address] Information not available 06/17/2023 Are You Blind Or Do You Have Difficulty Seeing? No [email or web address] Information not available 06/17/2023 Is Blood Transfusion Acceptable In An Emergency? Yes [email or web address] Information not available 04/09/2022 What Is Your Level Of Caffeine Consumption? Moderate [email or web address] Information not available 06/17/2023 How Much Tobacco Do You Chew? None Information not available 05/14/2019 In The 14 Days Before Symptom Onset, Have You Had Close Contact With A Laboratory-conf irmed COVID-19 While That Case Was Ill? No [email or web address] Information not available 06/17/2023 In The 14 Days Before Symptom Onset, Have You Had Close Contact With A Person Who Is Under Investigation For COVID-19 While That Person Was Ill? No [email or web address] Information not available 06/17/2023 Have You Been To An Area Known To Be High Risk For COVID-19? No [email or web address] Information not available 06/17/2023 Are You Deaf Or Do You Have Serious Difficulty Hearing? No Information not available 08/01/2016 What Type Of Diet Are You Following? REGULAR Information not available 08/01/2016 Which Illicit Or Recreational Drugs Have You Used? Denies Information not available 05/14/2019 Have You Processed Blood Or Body Fluids From An Ebola Virus Disease Patient Without Appropriate PPE? No [email or web address] Information not available 06/17/2023 Do You Reside In Or Have You Traveled To An Area Where Ebola Virus Transmission Is Active? No [email or web address] Information not available 06/17/2023 What Is The Highest Grade Or Level Of School You Have Completed Or The Highest Degree You Have Received? [id number] [email or web address] Information not available 06/22/2024 Swimming/diving Yes [email or web address] Informati on not available 06/17/2023 Have There Been Any Changes To Your Family Or Social Situation? No [email or web address] Information not available 06/17/2023 What Is The Fluoride Status Of Your Home? Unknown [email or web address] Information not available 06/17/2023 Hard Of Hearing Or Deaf In One Or Both Ears? No [email or web address] Information not available 06/17/2023 Have You Recently Or Are You Planning To Travel To An Area With Zika Virus? No [email or web address] Information not available 06/17/2023 How Many Years Have You Used Illicit Or Recreational Drugs? 0 [email or web address] Information not available 06/17/2023 Legally Blind In One Or Both Eyes? No [email or web address] Information not available 06/17/2023 Live Alone Or With Others? With Others [email or web address] Information not available 06/17/2023 Do You Have A Medical Power Of Green Building Materials Designer? No Information not available 06/17/2023 What Was The Date Of Your Most Recent Tobacco Screening? 06/25/2025 [email or web address] Information not available 06/25/2025 How Many Children Do You Have? 1 Information not available 05/14/2019 Do You Use Protection During Sex? No [email or web address] Information not available 06/17/2023 Do You Use Protection Against STDs? No Information not available 04/09/2022 What Is Your Relationship Status? Information not available 06/22/2024 Do You Use Your Seat Belt Or Car Seat Routinely? Yes [email or web address] Information not available 06/17/2023 Seat Belts Used Routinely Yes [email or web address] Information not available 06/17/2023 Are You Sexually Active? Yes Information not available 06/25/2025 Smoke Alarm In Home Yes [email or web address] Information not available 06/17/2023 Do You Have Smoke And Carbon Monoxide Detectors In Your Home? Yes [email or web address] Information not available 04/09/2022 Are You Passively Exposed To Smoke? No Information not available 05/14/2019 How Much Tobacco Do You Smoke? No [email or web address] Information not available 06/17/2023 General Stress Level Low [email or web address] Information not available 06/17/2023 Do You Use Sunscreen Routinely? No [email or web address] Information not available 06/17/2023 Has Tobacco Cessation Counseling Been Provided? Yes [email or web address] Information not available 06/25/2025 On What Date Was Tobacco Cessation Counseling Provided? 06/25/2025 [email or web address] Information not available 06/25/2025 Do You Have Difficulty Walking Or Climbing Stairs? No [email or web address] Information not available 06/17/2023 What Contraceptive Method Was Reported At Start Of This Visit? Female Sterilization Hysterectomy [email or web address] Information not available 06/17/2023 Do You Want To Talk About Contraception Or Prevention During Your Visit Today? No - I Do Not Want To Talk About Contraception Today Because I Am Here For Something Else [email or web address] Information not available 06/17/2023 Do You Have Any Future Plans To Get ? No, I Don't Want To Become [email or web address] Information not available 06/17/2023 Sex: Female Functional Status Question Answer Note LastModified by Organizat ion Details LastModified Time How many times per week do you consume alcohol? Less than 1 time per week Information not available 12/05/2023 Do you or have you ever used smokeless tobacco? Never used smokeless tobacco Information not available 05/14/2019 Are you currently employed? Yes Information not available 05/14/2019 Do you have transportation difficulties? No [email or web address] Information not available 06/17/2023 Are you able to care for yourself independently? Yes Information not available 08/01/2016 Do you have difficulty dressing, bathing, grooming, or toileting? No [email or web address] Information not available 06/17/2023 Do you or have you ever used e-cigarettes or vape? Never used electronic cigarettes Information not available 05/14/2019 What is your exercise level? Occasional Information not available 06/17/2023 Do you use any illicit or recreational drugs? No [email or web address] Information not available 06/17/2023 Do you or have you ever used any other forms of tobacco or nicotine? No [email or web address] Information not available 06/17/2023 What is your level of alcohol consumption? Occasional [email or web address] Information not available 04/09/2022 What is your status? Not [email or web address] Information no t available 06/17/2023 Are you able to walk independently without assistance or assistive devices? YESWOREST [email or web address] Information not available 06/17/2023 Do you have difficulty doing errands alone? No [email or web address] Information not available 06/17/2023 What is your occupation? [employer] [place] [email or web address] Information not available 06/17/2023 Mental Status Question Answer Note LastModified by Organizat ion Details LastModified Time Do you feel stressed (tense, restless, nervous, or anxious, or unable to sleep at night)? [id number] [email or web address] Information not available 06/22/2024 Do you have difficulty concentrating, remembering or making decisions? No [email or web address] Information no t available 06/17/2023 Family History Relationship Description Onset Age of this Age Resolved Age Notes LastModified by Organization Details LastModified Time Maternal Grandmother Cerebrovascu lar accident Not available 12:15:03 Maternal Grandmother Hypertensive disorder Not available 2015 12:15:30 Maternal Grandmother Myocardial infarction [email or web address] Not available 06/25 08:23:25 Maternal Grandmother Heart disease 38 53 Not available 2022 15:09:14 Paternal Grandfather Neoplasm of prostate [email or web address]-251 Not available 2024 08:23:25 Paternal Grandfather Malignant neoplasm of lung [email or web address] Not available 2022 15:22:24 Mother Asthma [email or web address] Not available 06/17/2023 15:09:14 Mother Anxiety disorder [email or web address] Not available 2022 15:22:24 Mother Depressive disorder Not available 2022 15:22:24 Mother Obesity [email or web address] Not available 06/17/2023 15:09:14 Mother Substance abuse [email or web address] Not available 2022 15:09:14 Son Asthma [email or web address] Not available 06/17/2023 15:09:14 Unspecified Relation Disorder of thyroid gland [email or web address] Not available 2024 08:23:25 Paternal Aunt Malignant neoplasm of transverse colon [email or web address] Not available 2024 08:23:25 Maternal Aunt Malignant neoplasm of breast [email or web address] Not available 2023 08:42:35 Sister Disorder of thyroid gland [email or web address] Not available 2023 08:42:35 Father Polyp of colon benign [email or web address] Not available 2024 08:23:25 Medical History Condition Response Pancreatitis N Coronary Artery Disease N Other N Gout N Atrial Fibrillation N congenital heart disease N Kidney Stones N Blood Diseases N Hyperthyroidism N Rheumatoid arthritis N Blood Transfusion N Erectile Dysfunction N amputation N Colonoscopy N Skin Lesions N Depression Y COPD N Pneumonia N Incontinence N Murmur N Edema N Alzheimer's Disease N Migraine Headaches N Tobacco Abuse N Anxiety Disorder Y Muscle, Joint, or Bone Problems N Hemorrhoids N Obesity Y Vision or Eye Problems N Restless Leg Syndrome N Arthritis N Polyps N Infertility N Mental Disorder N Carpal Tunnel N Acid Reflux (GERD) Y Cancer N Varicosities N Stroke N Tendonitis N Crohn's Disease N Hypercholesterolemia Y Skin Cancer N Headaches N Fibromyalgia N Irritable Bowel Syndrome N Anal Fissure N Kidney Disease N Heart Problems N Ear or Hearing Problems N Hospitalizations N Gallstones N Kidney or Bladder Problems N Goiter N Acne N Skin Problems N Eating Disorder N Chairez's Esophagus N Hypertriglyceridemia N MRSA exposure N Constipation N Embolism N Vitamin B12 Deficiency N Deviated Septum N Tuberculosis N AIDS/HIV N Myocardial Infarction N Asthma N Mitral Valve Disorders N Vertigo N Hepatitis N Thyroid Cancer N Neuropathy N Pulmonary Embolism N History of DVT N Herniated Disc N Chronic Ear Infections N Chicken Pox N Autism Spectrum Disorder (ASD) N Von Willebrands Disease N Thrombophilias N Breast Cancer N Hernia N Plantar Fasciitis N Hospital Admission Other Than N Lung Disease N Hypothyroidism Y Defects or Inherited Disease N Developmental or Behavioral Disorders N Breast Problem N Difficulty Swallowing N Ovarian Cyst N Anesthesia Complications N Testosterone Deficiency N Meniere's disease N Head Injury/Concussion N Interstitial Cystitis N Congenital Anomalies N Hypoglycemia N Blood clot N Vitamin D Deficiency N Cellulitis N Endometriosis Y Bladder or Kidney Problems N Fracture N Liver Disease N Schizophrenia N Panic Disorder N Concussion N Spina Bifida N Allergies/Hayfever N Osteoarthritis N Parkinson's Disease N Disc Protrusion N STI N Esophagitis N Angina N Thyroid Problems Y GI Problems N ADD/ADHD N Anemia N Multiple Sclerosis N Abnormal PAP N Lumbago N Mental Illness N Psychiatric Illness N Ovarian Cancer N Diabetes N Bedwetting N Degenerative Disc Disease N Seizures/Epilepsy N Congestive Heart Failure (CHF) N Syncope N Hyperlipidemia N Insomnia N Eczema N Abuse/Domestic Violence N Attention Deficient Disorder N Dementia N Diverticulitis N Ulcerative colitis N Cerebrovascular Disease N Depression N Guillain-[place] N Sleep Apnea Y Aneurysm N Bronchitis N Heart Disease N Suicidal Ideation N Pre-Eclampsia N Hypertension Y Osteoporosis N Gynecological History Statement/Question Response Abnormal Pap Y Date of Last Mammogram 08/19/2024 Date of LMP Post Menopausal Bleeding N STIs/STDs N HPV Vaccine N Duration of Flow (days) 0 Current Control Method Hysterectom y Age at Menarche 13 Age at First Child 20 Last Annual Exam/Provider 06/22/24 w/DT Date of Last Colonoscopy Frequency of Cycle (Q days) 0 Sexually Active? Y Date of Last Cervical Culture 06/22/2024 Menses Monthly N Date of Last Pap Smear 08/23/2009 Sexual Problems? N LMP Unknown Hormone Replacement Therapy N Obstetrics History GPAL:G 2 P 1 0 1 1 Type Value Full Term 1 Spontaneous 1 Living 1 Total 2 Immunizations Vaccine Type Date Status Note Provider Nam e and Address Organization Details Recorded Time Influenza, split virus, quadrivalent, preservative 1 completed Maritza Larkin [facility] 05/10/2021 17:42:04 influenza, unspecified formulation 5 completed Not Available [facility] 09/26/2023 10:48:58 Tdap 4 completed Francoise Zuluaga, ASSISTED LIVING NURSING DIRECTOR [address], [place], [address], [facility] 05/18/2024 10:49:30 Influenza, split virus, trivalent, PF 4 completed Charissa Baca [facility] 06/29/2024 08:52:46 Influenza, split virus, trivalent, PF 5 completed Francoise Zuluaga, ASSISTED LIVING NURSING DIRECTOR [address], [place], [address], [facility] - [facility] 05/06/2025 08:28:15 COVID-19, mRNA, LNP-S, PF, 100 mcg/0.5mL dose or 50 mcg/0.25mL dose 1 completed Estrellita Osorio null, [place] - [facility] 06/17/2023 15:09:55 COVID-19, mRNA, LNP-S, PF, 100 mcg/0.5mL dose or 50 mcg/0.25mL dose 1 completed Estrellita Osorio null, [place] - [facility] 06/17/2023 15:09:55 COVID-19, mRNA, LNP-S, PF, 30 mcg/0.3 mL dose 1 completed Estrellita Osorio null, [place] - [facility] 06/17/2023 15:09:55 Hep A, adult 9 completed Estrellita Osorio null, [place] - [facility] 06/17/2023 15:09:55 Hep A, adult 8 completed Estrellita Osorio null, [place] - [facility] 06/17/2023 15:09:55 Influenza, split virus, trivalent, preservative 3 completed Estrellita Schumacher null, [place] - [facility] 07/18/2023 09:31:26 Influenza, split virus, trivalent, PF 2 completed Estrellita Schumacher null, [place] - [facility] 07/18/2023 09:31:26 Influenza, split virus, quadrivalent, PF 3 completed Estrellita Schumacher null, [place] - [facility] 07/18/2023 09:31:26 Past Encounters Encounter ID Performer Location Encounter Start Date Encounter Closed Date Diagnosis/Indication Diagnosis SNOMED-CT Code Diagnosis ICD10 Code Diagnosis IMO Codes Diagnosis Note [id number] SKYE Morfin [facility] [address] [place] [address] 05/06/2025 07:55:47 05/06/2025 08:25:38 Body mass index 30+ - obesity 103025543 E66.9 1696918 BMI 29.7Doing well on Wegovy.Ranjan ght is down 27 pounds since initiating . Overweight in adulthood with body mass index of 25 or more but less than 30 668835602 E66.3 Z68.29 [id number] Nausea 561166382 R11.0 Repeated prescription 18 4101300 Z76.0 328510 Influenza vaccine needed 5102047284 106 Z23 Health Concerns Section Related Observation LastModified by Organization Detai ls LastModified Time None Recorded Concern Status LastModified by Organization Details LastModified Time None Recorded Payers Encounter Date Sequence Insurance Name Policy Number Policy Franco Covered Member ID Franco Member ID Guarantor Name 05/06/2025 1 [employer] [id number] Tiffany Ireland [id number] Tiffany Ireland Notes Date Note Type Note Provider Name and Address Organization Details Recorded Time 05/06/2025 text/html ROS as noted in the HPI Patient is here for follow up on weight loss. She wants to discuss increasing it.Portion control is better.Goal weight is around 130. Did have nausea/vomiting last week. This is better, but she'd like a new prescription of zofran. Francoise Zuluaga, ASSISTED LIVING NURSING DIRECTOR [address], [place], [address], [place] - [facility] 05/06/2025 08:30:49 OBGyn Episode No OBEpisode recorded.
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
--- OUTSIDE RECORDS SUMMARY | 2025-07-09 14:51 | XMS_ITS | Data Portability ---
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 [place] - [facility] 5 08:04:14 Date Recorded Body height Body mass index (BMI) Body weight Pain severity - 0-10 verbal numeric rating [Score] - Reported Systolic And Diastolic Provider Name and Address Organization Details Last Updated DateTime 06/25/2025 156.85 cm 29.2 kg/m2 77228.31 g 0 102/60 mm[Hg] Estrellita Osorio [place] - [facility] 5 08:37:43 Social History Question Answer Notes LastModified by Organization Details LastModified Time Tobacco Smoking Status Never Smoker [place] - [facility] 08/01/2016 12:16:25 Able To Swim? Yes [email or web address] Information not available 06/17/2023 Do You Have An Advance Directive? No Information not available 08/01/2016 How Many Years Have You Consumed Alcohol? 19 [email or web address] Information not available 06/17/2023 Are You Blind Or Do You Have Difficulty Seeing? No [email or web address] Information not available 06/17/2023 Is Blood Transfusion Acceptable In An Emergency? Yes [email or web address] Information not available 04/09/2022 What Is Your Level Of Caffeine Consumption? Moderate [email or web address] Information not available 06/17/2023 How Much Tobacco Do You Chew? None Information not available 05/14/2019 In The 14 Days Before Symptom Onset, Have You Had Close Contact With A Laboratory-conf irmed COVID-19 While That Case Was Ill? No Information not available 06/17/2023 In The 14 Days Before Symptom Onset, Have You Had Close Contact With A Person Who Is Under Investigation For COVID-19 While That Person Was Ill? No [email or web address] Information not available 06/17/2023 Have You Been To An Area Known To Be High Risk For COVID-19? No [email or web address] Information not available 06/17/2023 Are You Deaf Or Do You Have Serious Difficulty Hearing? No Information not available 08/01/2016 What Type Of Diet Are You Following? REGULAR Information not available 08/01/2016 Which Illicit Or Recreational Drugs Have You Used? Denies Information not available 05/14/2019 Have You Processed Blood Or Body Fluids From An Ebola Virus Disease Patient Without Appropriate PPE? No [email or web address] Information not available 06/17/2023 Do You Reside In Or Have You Traveled To An Area Where Ebola Virus Transmission Is Active? No [email or web address] Information not available 06/17/2023 What Is The Highest Grade Or Level Of School You Have Completed Or The Highest Degree You Have Received? UI80116-3 [email or web address] Information not available 06/22/2024 Swimming/diving Yes [email or web address] Informati on not available 06/17/2023 Have There Been Any Changes To Your Family Or Social Situation? No Information not available 06/17/2023 What Is The Fluoride Status Of Your Home? Unknown [email or web address] Information not available 06/17/2023 Hard Of Hearing Or Deaf In One Or Both Ears? No [email or web address] Information not available 06/17/2023 Have You Recently Or Are You Planning To Travel To An Area With Zika Virus? No [email or web address] Information not available 06/17/2023 How Many Years Have You Used Illicit Or Recreational Drugs? 0 [email or web address] Information not available 06/17/2023 Legally Blind In One Or Both Eyes? No [email or web address] Information not available 06/17/2023 Live Alone Or With Others? With Others [email or web address] Information not available 06/17/2023 Do You Have A Medical Power Of Leak Hunter? No [email or web address] Information not available 06/17/2023 What Was The Date Of Your Most Recent Tobacco Screening? 06/25/2025 Information not available 06/25/2025 How Many Children Do You Have? 1 Information not available 05/14/2019 Do You Use Protection During Sex? No [email or web address] Information not available 06/17/2023 Do You Use Protection Against STDs? No [email or web address] Information not available 04/09/2022 What Is Your Relationship Status? [email or web address] Information not available 06/22/2024 Do You Use Your Seat Belt Or Car Seat Routinely? Yes Information not available 06/17/2023 Seat Belts Used Routinely Yes [email or web address] Information not available 06/17/2023 Are You Sexually Active? Yes [email or web address] Information not available 06/25/2025 Smoke Alarm In Home Yes [email or web address] Information not available 06/17/2023 Do You Have Smoke And Carbon Monoxide Detectors In Your Home? Yes [email or web address] Information not available 04/09/2022 Are You Passively Exposed To Smoke? No Information not available 05/14/2019 How Much Tobacco Do You Smoke? No [email or web address] Information not available 06/17/2023 General Stress Level Low [email or web address] Information not available 06/17/2023 Do You Use Sunscreen Routinely? No [email or web address] Information not available 06/17/2023 Has Tobacco Cessation Counseling Been Provided? Yes [email or web address] Information not available 06/25/2025 On What Date Was Tobacco Cessation Counseling Provided? 06/25/2025 [email or web address] Information not available 06/25/2025 Do You Have Difficulty Walking Or Climbing Stairs? No [email or web address] Information not available 06/17/2023 What Contraceptive Method Was Reported At Start Of This Visit? Female Sterilization Hysterectomy Information not available 06/17/2023 Do You Want To Talk About Contraception Or Prevention During Your Visit Today? No - I Do Not Want To Talk About Contraception Today Because I Am Here For Something Else [email or web address] Information not available 06/17/2023 Do You Have Any Future Plans To Get ? No, I Don't Want To Become [email or web address] Information not available 06/17/2023 Sex: Female Functional [...] 05/14/2019 Do you have transportation difficulties? No [email or web address] Information not available 06/17/2023 Are you able to care for yourself independently? Yes Information not available 08/01/2016 Do you have difficulty dressing, bathing, grooming, or toileting? No [email or web address] Information not available 06/17/2023 Do you or have you ever used e-cigarettes or vape? Never used electronic cigarettes Information not available 05/14/2019 What is your exercise level? Occasional [email or web address] Information not available 06/17/2023 Do you use any illicit or recreational drugs? No [email or web address] Information not available 06/17/2023 Do you or have you ever used any other forms of tobacco or nicotine? No [email or web address] Information not available 06/17/2023 What is your level of alcohol consumption? Occasional Information not available 04/09/2022 What is your status? Not Information no t available 06/17/2023 Are you able to walk independently without assistance or assistive devices? YESWOREST [email or web address] Information not available 06/17/2023 Do you have difficulty doing errands alone? No [email or web address] Information not available 06/17/2023 What is your occupation? [employer] [place] [email or web address] Information not available 06/17/2023 Mental Status Question Answer Note LastModified by Organizat ion Details LastModified Time Do you feel stressed (tense, restless, nervous, or anxious, or unable to sleep at night)? [id number] [email or web address] Information not available 06/22/2024 Do you have difficulty concentrating, remembering or making decisions? No [email or web address] Information no t available 06/17/2023 Family History Relationship Description Onset Age of this Age Resolved Age Notes LastModified by Organization Details LastModified Time Maternal Grandmother Cerebrovascu lar accident Not available 12:15:03 Maternal Grandmother Hypertensive disorder Not available 2015 12:15:30 Maternal Grandmother Myocardial infarction [email or web address] Not available 06/25 08:23:25 Maternal Grandmother Heart disease 38 53 [email or web address] Not available 2022 15:09:14 Paternal Grandfather Neoplasm of prostate API-251 Not available 2024 08:23:25 Paternal Grandfather Malignant neoplasm of lung [email or web address] Not available 2022 15:22:24 Mother Asthma [email or web address] Not available 06/17/2023 15:09:14 Mother Anxiety disorder [email or web address] Not available 2022 15:22:24 Mother Depressive disorder [email or web address] Not available 2022 15:22:24 Mother Obesity [email or web address] Not available 06/17/2023 15:09:14 Mother Substance abuse [email or web address] Not available 2022 15:09:14 Son Asthma [email or web address] Not available 06/17/2023 15:09:14 Unspecified Relation Disorder of thyroid gland [email or web address] Not available 2024 08:23:25 Paternal Aunt Malignant neoplasm of transverse colon API-251 Not available 2024 08:23:25 Maternal Aunt Malignant neoplasm of breast Not available 2023 08:42:35 Sister Disorder of thyroid gland [email or web address] Not available 2023 08:42:35 Father Polyp of [...] colitis N Cerebrovascular Disease N Depression N Guillain-Geneva N Sleep Apnea Y Aneurysm N Bronchitis [...] split virus, quadrivalent, preservative 1 completed Maritza aLrkin [place], [place] - [facility] 05/10/2021 17:42:04 influenza, unspecified formulation 5 completed Not Available [facility] 09/26/2023 10:48:58 Tdap 4 completed Francoise Zuluaga, SKYE [address], [place], [address], [place] - [facility] 05/18/2024 10:49:30 Influenza, split virus, trivalent, PF 4 completed Charissa Baca null, [place] - [facility] 06/29/2024 08:52:46 Influenza, split virus, trivalent, PF 5 completed Francoise Zuluaga, SUSTAINABLE LANDSCAPE ARCHITECT [address], [place], [address], [place] [facility] 05/06/2025 08:28:15 COVID-19, mRNA, LNP-S, PF, 100 mcg/0.5mL dose or 50 mcg/0.25mL dose 1 completed Estrellita Osorio [place], [place] - [facility] 06/17/2023 15:09:55 COVID-19, mRNA, LNP-S, PF, 100 mcg/0.5mL dose or 50 mcg/0.25mL dose 1 completed Estrellita Osorio [place] - [facility] 06/17/2023 15:09:55 COVID-19, mRNA, LNP-S, PF, 30 mcg/0.3 mL dose 1 completed Estrellita Osor[place] [facility] 06/17/2023 15:09:55 Hep A, adult 9 completed Estrellita Osorio [place] [facility] 06/17/2023 15:09:55 Hep A, adult 8 completed Estrellita Osorio [place] [facility] 06/17/2023 15:09:55 Influenza, split virus, trivalent, preservative 3 completed Estrellita Schumacher [place] [facility] 07/18/2023 09:31:26 Influenza, split virus, trivalent, PF 2 completed Estrellita Schumacher [place] [facility] 07/18/2023 09:31:26 Influenza, split virus, quadrivalent, PF 3 completed Estrellita Schumacher [place] - [facility] 07/18/2023 09:31:26 Past Encounters Encounter ID Performer Location Encounter Start Date Encounter Closed Date Diagnosis/Indication Diagnosis SNOMED-CT Code Diagnosis ICD10 Code Diagnosis IMO Codes Diagnosis Note [id number] Mallory Montalvo MD [address] [place] [address] 08/01/2016 14:45:35 08/01/2016 16:21:46 Acute bacterial sinusitis 39289125 J01.90 [id number] Mallory Montalvo MD [address] [place] [address] 12/21/2016 13:42:20 12/21/2016 14:08:51 Herpes zoster 3044437 B02.9 [id number] Mallory Montalvo MD [address] [place] [address] 01/28/2017 09:11:14 01/28/2017 09:50:27 Acute bacterial sinusitis 89784442 J01.90 [id number] Maddie Malik APRN [address] [place] [address] 04/09/2017 16:10:08 04/09/2017 17:08:35 Body mass index 30+ - obesity 925239437 Z68.32 Acute folliculitis 58135 7007 L73.9 Seasonal a llergic rhinitis 675103824 J30.2 Tuberculos is screening 290053552 Z11.1 General ex amination of patient 436790996 Z00.01 [id number] Ambrocio Parra APRN [address] [place] [address] 01/14/2018 13:18:53 01/14/2018 13:40:45 Dysuria 52401869 R30.0 Acute urin sean tract infection 243338064 N39.0 Hypothyroidism 87577583 E03.9 [id number] Jeremy Parra MD [address] [place] [address] 07/28/2018 14:38:42 07/28/2018 15:38:42 Acute bronchitis with bronchospasm 92989240 J20.9 [id number] Mallory Montalvo MD [address] [place] [address] 08/25/2018 16:26:01 08/25/2018 17:48:15 Body mass index 30+ - obesity 031000535 Z68.34 Hypothyroidism 71699409 E03.9 Vitamin D deficiency 347 00467 E55.9 Weight gain 1198445 R63. 5 [id number] Mallory Montalvo MD [address] [place] [address] 11/21/2018 09:23:42 11/21/2018 10:39:22 Hypothyroidism 98221199 E03.9 Mixed hyperlipidemia 267 435580 E78.2 Vitamin D deficiency 347 75472 E55.9 Acute bact erial sinusitis 21244151 J01.90 [id number] Cameron Nolen MD [address] [place] [address] 05/14/2019 12:28:43 05/14/2019 13:38:16 Hypothyroidism 42091415 E03.9 Hyperlipidemia 01505957 E78.5 Acute maxi llary sinusitis 74298610 J01.00 Mixed hyperlipidemia 267 341436 E78.2 Thyroid nodule 596207070 E04.1 Body mass index 30+ - obesity 451627705 Z68.33 [id number] Mallory Montalvo MD [address] [place] [address] 07/08/2019 13:32:31 07/08/2019 14:23:39 Acute bacterial sinusitis 67955915 J01.90 Acute bron chitis with bronchospasm 28041669 J20.9 [id number] Mallory Montalvo MD [address] [place] [address] 09/02/2019 10:25:46 09/02/2019 11:15:57 Pre-surgery evaluation 559999065 Z01.818 Thyroid nodule 530500384 E04.1 [id number] Cameron Nolen MD [address] [place] [address] 04/22/2020 10:18:45 04/22/2020 10:55:33 Dysuria 56645680 R30.9 Acute urin sean tract infection 810972087 N39.0 Body mass index 30+ - obesity 001782121 Z68.36 [id number] Mallory Montalvo MD [address] [place] [address] 06/06/2020 11:13:33 06/06/2020 12:09:37 Viral screening 757556581 Z11.59 Epigastric pain 03993063 R10.13 Gastroesop hageal reflux disease without esophagitis 251176044 K21.9 [id number] Mallory Montalvo MD [address] [place] [address] 08/22/2020 18:14:46 08/22/2020 19:02:50 Gastroesophageal reflux disease without esophagitis 745146370 K21.9 [id number] Mallory Montalvo MD [address] [place] [address] 04/11/2021 15:50:42 04/11/2021 16:50:31 Hypothyroidism 23063820 E03.9 Vitamin D deficiency 347 93487 E55.9 [id number] Mallory Montalvo MD [address] [place] [address] 04/26/2021 08:44:44 04/26/2021 09:40:59 Cough 57402931 R05 Viral screening 14445363 4 Z11.59 Acute bact erial sinusitis 20710029 J01.90 [id number] Mallory Montalvo MD [address] [place] [address] 05/10/2021 16:51:25 05/10/2021 17:39:02 Gastroesophageal reflux disease without esophagitis 175167181 K21.9 Administra tion of influenza vaccine 40391011 Z23 Obstructiv e sleep apnea syndrome 84879604 G47.33 [id number] Mallory Montalvo MD [address] [place] [address] 08/16/2021 17:22:06 08/16/2021 18:16:24 Obstructive sleep apnea syndrome 89765941 G47.33 [id number] Mallory Montalvo MD [address] [place] [address] 10/10/2021 13:46:00 10/10/2021 14:20:01 Acute bronchitis with bronchospasm 45072485 J20.9 Hypothyroidism 97091941 E03.9 Gastroesop hageal reflux disease without esophagitis 674875193 K21.9 Obstructiv e sleep apnea syndrome 71695965 G47.33 [id number] SKYE Weber [employer] [address] [place] [address] [place] [address] 04/09/2022 15:24:18 04/09/2022 16:20:10 Routine gynecologic examination done 1210842342 9101 Z01.419 Examinatio n of blood pressure 023163709 Z01.30 BP goal < 140/90 Depression screening 171 859479 Z13.31 Diet education 43627781 Z71.3 4736-2661 calorie diet recommende d with an emphasis on reducing sugar and refined carbohydra gabriela, avoiding highly processed foods and decreasing saturated fats. She declines dietary consult. Counseling 597709420 Z71 .82 Exercise counselricky rosa. Patient encouraged to exercise 30 minutes 5 days a week. Hypothyroidism 67908450 E03.9 Managed per PCP Body mass index 30+ - obesity 717968517 Z68.36 Screening mammography 24 613669 Z12.31 History of total hysterectomy 439285050 Z90.710 Gastroesop hageal reflux disease without esophagitis 978395988 K21.9 Managed per PCP [id number] Mallory Montalvo MD [address] [place] [address] 04/10/2022 16:47:59 04/10/2022 18:02:45 Hypothyroidism 11677010 E03.9 Gastroesop hageal reflux disease without esophagitis 903472367 K21.9 Body mass index 30+ - obesity 068253976 Z68.36 Obesity 389688655 E66.3 Vitamin D deficiency 347 92031 E55.9 Mixed hyperlipidemia 267 200989 E78.2 [id number] Mallory Montalvo MD [address] [place] [address] 08/14/2022 16:39:53 08/14/2022 17:20:44 Right side sciatica 4306496734 13366 M54.31 Body mass index 30+ - obesity 740853863 Z68.37 [id number] Mallory Montalvo MD [address] [place] [address] 10/02/2022 16:58:12 10/02/2022 17:36:04 Acute bacterial sinusitis 14707910 J01.90 Blood gluc ose outside reference range 885005800 R73.09 Body mass index 30+ - obesity 096973374 Z68.38 [id number] Mallory Montalvo MD [address] [place] [address] 10/31/2022 16:44:54 10/31/2022 17:38:26 Hypothyroidism 08480073 E03.9 Gastroesop hageal reflux disease without esophagitis 666367665 K21.9 Obstructiv e sleep apnea syndrome 79920806 G47.33 Asthma 727604835 J45.90 9 [id number] Mallory Montalvo MD [address] [place] [address] 05/07/2023 16:40:00 05/07/2023 17:23:46 Hypothyroidism 16298134 E03.9 Mixed hyperlipidemia 267 621407 E78.2 Fatigue 06547225 R53.83 Vitamin D deficiency 347 96750 E55.9 [id number] Ruth Sinclair APRN [place] [employer] [address] [place] [address] [place] [address] 06/17/2023 15:05:39 06/17/2023 15:48:04 Routine gynecologic examination done 2065794842 9101 Z01.419 Depression screening 171 963330 Z13.31 Hypertensi on screening 555678051 Z13.6 Diet education 49249632 Z71.3 Encourage healthy eating/dec reased fats, sugars, fried foods Screening for malignant neoplasm of breast 555624525 Z12.31 Counseling 095572298 Z71 .82 Encouraged regular exercise 30-40min/d ay 4-5 days/wk Examinatio n of blood pressure 876874962 Z01.31 Body mass index 30+ - obesity 210327236 Z68.35 Obesity 038831628 E66.9 History of total hysterectomy 069155218 Z90.710 Elevated blood-pressure reading without diagnosis of hypertension 701306283 R03.0 [id number] Mallory Montalvo MD [address] [place] [address] 06/24/2023 16:48:24 06/24/2023 17:21:49 Hypertensive disorder 40563525 I10 [id number] Deborah Calix APRN [address] [place] [address] 07/18/2023 09:14:05 07/18/2023 10:00:29 Sore throat 989515963 J02.9 Nasal congestion 5975058 0 R09.81 Influenza caused by Influenza A virus 970417083 J09.X2 Acute sinusitis 82005220 J01.90 [id number] Kylah Cano APRN [address] [place] [address] 08/15/2023 15:50:30 08/15/2023 16:13:44 Dysuria 75951530 R30.0 Acute urin sean tract infection 733209815 N39.0 Increased frequency of urination 935780744 R35.0 Body mass index 30+ - obesity 622782135 Z68.36 Obesity 858913866 E66.9 [id number] [facility] [address] [place] [address] 09/12/2023 10:55:37 09/12/2023 11:58:03 [id number] [facility] [place] [address] 09/23/2023 15:41:39 09/23/2023 17:00:47 [id number] Mallory Montalvo MD [address] [place] [address] 09/16/2023 09:30:38 09/16/2023 10:50:43 Cough 14837336 R05.9 COVID-19 544825087 U07.1 Hypothyroidism 32550009 E03.9 [id number] [facility]O [facility] [address] [facility] [place] [address] 10/07/2023 08:08:28 10/07/2023 09:04:37 [id number] Kevin Rowell APRN [address] [place] [address] 09/26/2023 10:48:36 09/26/2023 11:29:57 Body mass index 30+ - obesity 627407061 Z68.36 Obesity 037129658 E66.9 Acute bronchitis 0473227 2 J20.9 Acute Bronchitis - Patient presents with cough and chest congestion for 3 weeks. No signs of pneumonia or other complicati ons.- failed a 5-day course of azithromyc in and a medrol dose pack- prescribed a 7-day course of doxycyclin e and 5-day course of moderate strenght prednisone - Advise patient to drink plenty of fluids, rest, and avoid smoking.- Schedule a follow-up visit in 1 weeks to monitor recovery and rule out any secondary infections . [id number] Lubna Braxton MD [address] [place] [address] 10/17/2023 13:06:01 10/17/2023 13:58:51 Acute diarrhea 660578232 R19.7 Called [facility] PCR positive for astrovirus . Symptoms consistent .Will give lomotil to help with diarrhea. Labs reviewed. Not orthostati c in office today Cough 33630625 R05.9 Has had persistent dry cough since COVID, Explained this may last up to 12 weeks Acute infe ctious nonbacterial gastroenteritis 707310672 A09 Due to astrovirus , may patient aware this can be contagious [id number] [facility] [address] [place] [address] 10/17/2023 14:50:56 10/17/2023 16:25:38 [id number] JAIRO Terry [facility] [address] [place] [address] 10/31/2023 07:55:16 10/31/2023 09:11:52 [id number] Mallory Montalvo MD [address] [place] [address] 10/23/2023 13:03:54 10/23/2023 14:34:00 Mild dehydration 2579697097 108 E86.0 External hemorrhoids 239 13291 K64.4 Blood in urine 34887126 R31.9 [id number] JAIRO [facility] [address] [place] [address] 11/14/2023 07:59:55 11/14/2023 09:08:50 [id number] JAIRO [facility] [address] [place] [address] 11/28/2023 07:51:08 11/28/2023 09:07:49 [id number] JAIRO [facility] [address] [place] [place] [address] 12/12/2023 13:44:28 12/12/2023 15:07:23 [id number] Cameron Nolen MD [address] [place] [address] 12/05/2023 16:30:44 12/05/2023 17:13:48 Gastroesophageal reflux disease without esophagitis 354022942 K21.9 Hypothyroidism 91834891 E03.9 Mixed hyperlipidemia 267 584643 E78.2 Obstructiv e sleep apnea syndrome 88212492 G47.33 Asthma 662581545 J45.90 9 Body mass index 30+ - obesity 463845421 Z68.36 Hypertensive disorder 38 828741 I10 Acute bronchitis 6779667 2 J20.9 [id number] JAIRO [facility] [address] [place] [address] 12/26/2023 09:03:17 12/26/2023 10:06:43 [id number] JAIRO [facility] [address] [place] [address] 01/07/2024 14:56:21 01/07/2024 16:10:16 [id number] JAIRO [facility] [address] [place] [address] 01/27/2024 08:01:48 01/27/2024 09:16:10 [id number] JAIRO [facility] [address] [place] [address] 02/10/2024 07:53:55 02/10/2024 09:36:15 [id number] JAIRO [facility] [address] [place] [address] 02/24/2024 07:58:01 02/24/2024 09:12:56 [id number] JAIRO [facility] [address] [place] [address] 03/05/2024 15:59:40 03/05/2024 16:57:41 [id number] JAIRO [facility] [address] [place] [address] 03/19/2024 07:59:40 03/19/2024 09:44:04 [id number] JAIRO [facility] [address] [place] [address] 04/02/2024 08:44:37 04/02/2024 10:11:04 [id number] Francoise Zuluaga APRN [facility] [address] [place] [address] 05/18/2024 08:44:03 05/18/2024 09:23:02 Hypothyroidism 03386540 E03.9 Influenza vaccine needed 2074732400 106 Z23 Administra tion of tetanus vaccine 944745773 Z23 [id number] Ruth Sinclair APRN [place] [employer] [address] [facility] [place] [address] 06/22/2024 08:37:44 06/22/2024 09:39:33 Routine gynecologic examination done [id number] 9101 Z01.419 Depression screening 171 165720 Z13.31 PHQ-9 completed today. Diet education 33451173 Z71.3 Encourage healthy eating/dec reased fats, sugars, fried foods Counseling 886161426 Z71 .82 Exercise counselricky brown Patient encouraged to exercise 30 minutes 5 days a week. Examinatio n of blood pressure 844292825 Z01.30 Screening for malignant neoplasm of breast 390395962 Z12.31 Body mass index 30+ - obesity 907980050 Z68.34 Obesity 529230633 E66.9 Venereal d isease screening 605054479 Z11.3 History of total hysterectomy 438806626 Z90.710 Hypertensive disorder 38 955150 I10 [id number] Francoise Zuluaga APRN [facility] [address] [place] [address] 06/29/2024 09:53:12 06/29/2024 10:17:58 Acute maxillary sinusitis 93258795 J01.00 Obese 484467182 E66.9 Body mass index 30+ - obesity 155290472 Z68.34 Obesity 234883551 E66.9 Vitamin D deficiency 347 88048 E55.9 on replacemen t. Folic acid deficiency 19 3023028 E53.8 on replacemen t. [id number] Trevor Dexter LCSW [place] [facility] [place] [address] 06/30/2024 08:47:49 06/30/2024 11:52:59 [id number] Treovr Dexter LCSW [place] [facility] [address] [place] [address] 07/21/2024 10:51:24 07/21/2024 12:23:56 [id number] SKYE [place] [address] [place] [address] 07/27/2024 08:22:06 07/27/2024 08:44:10 Body mass index 30+ - obesity 646053073 Z68.34 BMI 34.7. Will increase to 0.5 mg/weekly. Folic acid deficiency 19 9537847 E53.8 on replacemen t. due for labs today. Vitamin D deficiency 347 45465 E55.9 on replacemen t. due for labs today. Gastroesop hageal reflux disease without esophagitis 709881880 K21.9 controlled . [id number] SKYE [place] [address] [facility] [place] [address] 08/10/2024 08:31:35 08/10/2024 08:50:35 Acute bronchitis 55296955 J20.9 [id number] SKYE [place] [address] [facility] [place] [address] 08/27/2024 08:34:14 08/27/2024 08:53:10 Body mass index 30+ - obesity 761343719 Z68.34 BMI 34.1. Weight down 3 pounds. Will increase to 0.5 mg/weekly. Cough 70927254 R05.9 [id number] Trevor Dexter [facility] [address] [place] [address] 09/03/2024 07:58:35 09/03/2024 10:36:04 [id number] SKYE [place] [address] [address] [place] [address] 10/01/2024 16:33:13 10/01/2024 16:49:13 Cough 00019427 R05.9 s/p recent influenza. Anxiety 38321712 F41.9 [id number] Trevor Dexter [facility] [address] [place] [address] 10/01/2024 08:00:05 10/01/2024 09:01:29 [id number] Trevor Dexter [facility] [address] [place] [address] 10/27/2024 07:57:05 10/27/2024 08:59:37 [id number] SKYE Morfin [facility] [address] [place] [address] 11/16/2024 08:52:12 11/16/2024 09:31:06 Hypothyroidism 02184171 E03.9 on replacemen t. Will check labs. Body mass index 30+ - obesity 315015816 E66.9 1849905 BMI 34.7. Weight up 4 pounds. Will increase to 1.0 mg/weekly. Obesity 502189921 E66.9 Vitamin D deficiency 347 78082 E55.9 77703 currently off replacemen t as Vit D had improved. Will recheck. Folic acid deficiency 19 0773062 E53.8 on replacemen t. due for labs today. Dyslipidemia 950480315 E 78.5 585320 Last ldl 102. Gastroesop hageal reflux disease without esophagitis 582169098 K21.9 controlled on agent. [id number] Trevor Dexter [facility] [address] [place] [address] 12/31/2024 07:56:35 12/31/2024 09:12:34 [id number] SKYE Morfin [facility] [address] [place] [address] 02/04/2025 10:31:10 02/04/2025 11:09:36 Body mass index 30+ - obesity 552207707 E66.9 9073496 BMI 33 Hypothyroidism 93012844 E03.9 Is hyperthyro id, will need to decrease synthroid. 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 Nausea 615549998 R11.0 01153 has had with increase of GLP-1 increases. Will give zofran that she may have on hand. [id number] Francoise Zuluaga APRN [facility] [address] [place] [address] 05/06/2025 07:55:47 05/06/2025 08:25:38 Body mass index 30+ - obesity 465664634 E66.9 0042038 BMI 29.7Doing well on Wegovy.Ranjan ght is down 27 pounds since initiating . Overweight in adulthood with body mass index of 25 or more but less than 30 454807352 E66.3 Z68.29 5294903159 Nausea 956699842 R11.0 Repeated prescription 18 7368528 Z76.0 409800 Influenza vaccine needed 5455206941 106 Z23 [id number] SKYE Art [employer] REPA[employer] [address] [facility] [place] [address] 06/25/2025 08:23:22 06/25/2025 09:23:29 Routine gynecologic examination done 1333714275 9101 Z01.419 Depression screening 171 762473 Z13.31 PHQ-9 completed today. Diet education 24888788 Z71.3 Encourage healthy eating/avalos it unhealthy fats, sugars, fried foods Counseling 810794658 Z71 .82 Encouraged regular exercise 30-40min/d ay 4-5 days/wk Examinatio n of blood pressure 626677922 Z01.30 History of total hysterectomy 353357635 Z90.710 w/ovarian conservati on Hypertensive disorder 38 401020 I10 Overweight in adulthood with body mass index of 25 or more but less than 30 034753439 E66.3 Z68.29 6352409302 Screening for malignant neoplasm of colon 625759883 Z12.11 809454 Breast lump 23459154 N63 .25 6348058660 Irregular heart beat 361 157639 I49.9 8724625 Health Concerns Section Related Observation LastModified by Organization Detai ls LastModified Time None Recorded Concern Status LastModified by Organization Details LastModified Time None Recorded Advance Directives Directive N: Payers Insurance Date Sequence Insurance Name Policy Number Policy Franco Covered Member ID Franco Member ID Guarantor Name 06/29/2025 1 [place] [id number] Tiffany Osman Shu [id number] Tiffany Shu 03/19/2024 1 [place] [id number] Tiffany Ireland [id number] Tiffany Ireland 06/22/2024 1 [place] [id number] Raulito Moscoso Shu II [id number] Tiffany Ireland Notes Date Note Type Note Provider Name and Address Organization Details Recorded Time 10/01/2024 text/html Emergency Depart ment Follow-Up RecordReported by PatientEmergency Room Follow-Up RecordFor discharge information, patient reportsname of hospital/urgent care patient was seen: ([facility]),patient presented to hospital/urgent care on or around: actual date ,patient presented to hospital for treatment of: (flu symptoms),treatment received by hospital/urgent care: (pt had no treatment),patient's condition has: improved (still has cough and wheezing), andhospital records available at the time of this visit: yes.ROS as noted in the HPI 44 year old female who presents back as ER follow up. She was diagnosed w/ flu A. As symptoms were > 4days she was not treated with Tamiflu.Still has a cough and THOMPSON. Has head congestion.Has been using coricidin.Not sleeping the best secondary to the cough. Francoise Zuluaga, SUSTAINABLE LANDSCAPE ARCHITECT [address], [place], [address], [place] - [facility] 10/01/2024 16:50:36 11/16/2024 text/html The patient is here today following up on hypothyroidism.Pt is fasting. She is also wanting a increase on Wegovy. Currently on 0.5 mg. Still wanting to eat. Is enrolled in [facility] weight management program. Talks with a nurse monthly and has a scale which records her weight.Recent PA appeal was started. Was constipating her and she started fiber gummy. This is better. Stopped Celexa as she was going through her divorce. Time has healed. Off x 2 weeks. She is doing well. Francoise Cisnerosoberts, SUSTAINABLE LANDSCAPE ARCHITECT [address], [place], [address], [facility] - [facility] 11/16/2024 09:19:09 02/04/2025 text/html ROS as noted in the [facility] Tiffany is here for weight management follow up. She is on Wegovy. 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 Her last weight was 177.6 and BMI 32.48. Her goal was 130. Her Wegovy was increased to 1 mg in November. Did have some nausea with that increase but improved. Document reviewed. She would like to increase the dose if possible. No chest pain or soa.Bowels are moving well.Request zofran with next dose increase. Francoiseelana Zuluaga, SUSTAINABLE LANDSCAPE ARCHITECT [address], [place], [address], [facility] - [facility] 02/04/2025 11:14:22 05/06/2025 text/html ROS as noted in the HPI Patient is here for follow up on weight loss. She wants to discuss increasing it.Portion control is better.Goal weight is around 130. Did have nausea/vomiting last week. This is better, but she'd like a new prescription of zofran. Francoise Cisnerosoberts, SUSTAINABLE LANDSCAPE ARCHITECT [address], [place], [address], [facility] - [facility] 05/06/2025 08:30:49 06/25/2025 text/html Annual - MOBRepo rted by [...] discussed, risks of not having screenings explained.).Tiffany rto for AWE. She is doing well, and denies concerns.She has lost approx 50# with Wegovy! Ruth Sinclair, SUSTAINABLE LANDSCAPE ARCHITECT [address], [place], [address], [place] [facility] 06/25/2025 09:41:56 OBGyn Episode Ob Episode Information Episode Created Date Number of Fetuses Patient Bloodtype Patient rh Status Prepregnancy Weight lbs Domestic Partner Domestic Partner Phone Father Name Supervisor Propellant Charge Loading Status 05/07/20 23 1 CLOSED Fetus Data First Name Last Name Admitted to NICU Weight (g) Sex Living Outcome Pediatric Complications Fetus ID Race Codes Race Delivery Type Ectopic Niall Calculation Initial Niall Date Initial Exam Date Initial Exam Provider Initial Ultrasound Date Last Menstrual Period Date Ultra Sound Weeks Gestation 0 Eighteen To Twenty Week Naill Update Ultra Sound Date Fundal Height At Umbil Quickening Date Ultra Sound Latest Weeks Gestation Final Niall Confirmed By Final Inall Confirmed Date Final Niall Date Ultra Sound Latest Days Gestation 0 0 Menstrual History Last Menstrual Date Menses Monthly On Bcp Conception Prior Menses Frequency Hcg Plus Date Menarche Onset Age Delivery Information Delivery Date Delivery Type Labor Anesthesia Weeks Gestation Incision Type Labor Labor Length Hrs Delivered By Post Complications Tubal Sterilization Discharge Date Comments 2 Discharge Information Feeding Method Contraceptive Method Maternal HG B and HCT Levels Ob Episode Information Episode Created Date Number of Fetuses Patient Bloodtype Patient rh Status Prepregnancy Weight lbs Domestic Partner Domestic Partner Phone Father Name Supervisor Propellant Charge Loading Status 04/09/20 22 1 CLOSED Fetus Data First Name Last Name Admitted to NICU Weight (g) Sex Living Outcome Pediatric Complications Fetus ID Race Codes Race Delivery Type 3288.54 2 M Full Term [id number] Vaginal Niall Calculation Initial Niall Date Initial Exam Date Initial Exam Provider Initial Ultrasound Date Last Menstrual Period Date Ultra Sound Weeks Gestation 0 Eighteen To Twenty Week Niall Update Ultra Sound Date Fundal Height At Umbil Quickening Date Ultra Sound Latest Weeks Gestation Final Niall Confirmed By Final Niall Confirmed Date Final Niall Date Ultra Sound Latest Days Gestation 0 0 Menstrual History Last Menstrual Date Menses Monthly On Bcp Conception Prior Menses Frequency Hcg Plus Date Menarche Onset Age Delivery Information Delivery Date Delivery Type Labor Anesthesia Weeks Gestation Incision Type Labor Labor Length Hrs Delivered By Post Complications Tubal Sterilization Discharge Date Comments 0 Regional-Ep idural 42 [place]orget[place] w n [place], overdue 3 weeks per patient Discharge Information Feeding Method Contraceptive Method Maternal HG B and HCT Levels
--- NOTE | 2025-07-09 15:15 | CA_ITS ---
APPROVED REPORT EXAM: Comprehensive 2D, Doppler, and color-flow Echocardiogram Heliarc Welder: Jenae Ponce RVT Ht: 5 ft 2 in Wt: 157lbs BSA: 1.72 BP: 147/69 mmHg Indications: palpitations, tachycardia 2D Dimensions LA Volume 22.20 mL LA Volume Index 12.83 mL/m2 (M/F) 16-34 M-Mode Dimensions RVDd 2.58 cm (0.9-2.6) LA Diam 3.43 cm (1.9-4.0) LVDd 4.80 cm (3.5-5.7) LVDs 3.12 cm (3.5-5.7) IVSd 1.07 cm (0.6-1.1) PWd 0.60 cm (0.6-1.1) EF (Teich) 64.20% FS 35.00% EDV (Teich) 107.50 mL TAPSE 1.45 (<1.7) ESV (Teich) 38.50 mL LV Diastology E Decel Time 207 (160-240 msec) E/A Ratio 1.4 Aortic Valve MEHRDAD Index 1.66 cm2/m2 AoV Peak Farhad. 107.0 (50-130 cm/s) AO Peak GR. 4.60 mmHg AO Mean GR. 2.40 (<5 mmHg) AO VTI 20.5 (18-25 cm) MEHRDAD (VTI) 2.93 (2.5-4.5 cm2) Mitral Valve MV E Max Farhad. 69.0 (40-130 cm/s) MV A Velocity 49.0 (40-130 cm/s) E/A Ratio 1.41 MV PHT 61.0 ms Pulmonary Valve PV Peak Velocity 58.0 (50-150 cm/s) Tricuspid Valve TR P. Velocity 177.00 cm/s RAP Estimate 8.00 mmHg RVSP 20.60 mmHg Left Ventricle The left ventricle is normal size. Left ventricular systolic function is normal. The left ventricular ejection fraction is within the normal range. There is increased left ventricular wall thickness. There is normal LV segmental wall motion. The left ventricular diastolic function is normal. LVEF is 55% Right Ventricle The right ventricle is normal size. The right ventricular systolic function is normal. Atria The left atrium size is normal. The right atrium size is normal. There is no color Doppler evidence of interatrial shunt. Aortic Valve The aortic valve opens well. There is no hemodynamically significant aortic valvular stenosis. No aortic regurgitation is present. Mitral Valve The mitral valve is normal in structure. No evidence of mitral valve stenosis. Mild mitral regurgitation is present. Tricuspid Valve The tricuspid valve leaflets are thin and pliable. Trace tricuspid regurgitation. There is insufficient TR jet to estimate RVSP. Pulmonic Valve The pulmonary valve is grossly normal in structure. Trace pulmonic valve regurgitation is present. Great Vessels The aortic root is normal in size. IVC is normal in size and collapses >50% with inspiration. Pericardium There is no pericardial effusion. Other Information Study Quality: Fair Conclusion Normal biventricular systolic function. Mild MR. Electronically signed by : Marissa Ibarra MD 07/11/2025 14:05:17
== END 2025-07-09 23:59 | disposition home or self-care (01) ==
LOC: RT 14:47
PROVIDERS: PCP Nurse Practitioner Adult Health; Visit Provider Internal Medicine
DX: I34.0 Nonrheumatic mitral (valve) insufficiency (principal); I49.3 Ventricular premature depolarization; R00.0 Tachycardia, unspecified
CPT/HCPCS: 93306

== ENCOUNTER 2025-08-03 06:53 | Outpatient (CLI) | payer BC, SELFPAY ==
--- OUTSIDE RECORDS SUMMARY | 2025-07-06 13:45 | XMS_ITS | Encounter Summary ---
Author Organization [place] [address] Care Team Providers Care Buying Intern Name Role Phone Unavailable Primary Care Provider Unavailabl e Reason for Referral * Mammography (Routine) - Pending Review Specialty Diagnoses / Procedures Referred By Contac t Referred To Contact Radiology Procedures MM OUTSIDE FILMS FOR COMPARISON Provider, Unknown Referral ID Status Reason Start Date Expiration Date V isits Requested Visits Authorized [id number] Pending Review 07/27/2025 07/27/2027 1 1 Reason for Visit * Mammography (Routine) - Pending Review Specialty Diagnoses / Procedures Referred By Contac t Referred To Contact Radiology Procedures MM OUTSIDE FILMS FOR COMPARISON Provider, Unknown Referral ID Status Reason Start Date Expiration Date V isits Requested Visits Authorized [id number] Pending Review 07/27/2025 07/27/2027 1 1 Encounter Details Date Type Department Care Team (Latest Contact Info) Description 07/06/2025 1:45 PM EST - 07/06/2025 1:49 PM EST Hospital Encounter [place] [phone] [place] [phone] Provider, Unknown Discharge Disposition: Home or Self Care Social History Tobacco Use Types Packs/Day Years Used Date Smoking Tobacco: Never Assessed Comments Unknown Sex and Gender Information Value Date Recorded Sex Assigned at Not on file Legal Sex Female 3:56 PM EST Gender Identity Not on file Sexual Orientation Not on file documented as of this encounter Discharge Disposition Disposition Code Departure Means Destination Home or Self Care documented in this encounter Plan of Treatment Upcoming Encounters Date Type Department Care Team ( st Contact Info) Description 01/31/2026 10:00 AM EDT Appointment [facility] [address] [place] [phone] Sole Valle PA-C [address] [place] [address] [address] [place] [address] 01/31/2026 10:30 AM EDT Appointment [facility] [place] [phone] Sole Valle PA-C [address] [place] [address] [address] [place] [address] 01/31/2026 11:30 AM EDT Appointment [facility] REANNA [place] [phone] Sole Valle PA-C [address] [place] [address] [address] [place] [address] documented as of this encounter Procedures Procedure Name Priority Date/Time Associated Diagnosis Comments MM OUTSIDE FILMS FOR COMPARISON Routine 07/27/2025 1:42 PM EST documented in this encounter Results * MM OUTSIDE FILMS FOR COMPARISON (07/27/2025 1:42 PM EST) us Unknown Provider IMG MAMMOGRAPHY ORDERABLES Inge l Result PACS documented in this encounter Visit Diagnoses Not on filedocumented in this encounter
--- OUTSIDE RECORDS SUMMARY | 2025-07-06 13:50 | XMS_ITS | Encounter Summary ---
Author Organization [place] [address] Care Team Providers Care Deputy Court Clerk Name Role Phone Unavailable Primary Care Provider Unavailabl e Reason for Referral * Mammography (Routine) - Pending Review Specialty Diagnoses / Procedures Referred By Contac t Referred To Contact Radiology Procedures MM OUTSIDE FILMS FOR COMPARISON Provider, Unknown Referral ID Status Reason Start Date Expiration Date V isits Requested Visits Authorized [id number] Pending Review 07/27/2025 07/27/2027 1 1 Reason for Visit * Mammography (Routine) - Pending Review Specialty Diagnoses / Procedures Referred By Contac t Referred To Contact Radiology Procedures MM OUTSIDE FILMS FOR COMPARISON Provider, Unknown Referral ID Status Reason Start Date Expiration Date V isits Requested Visits Authorized [id number] Pending Review 07/27/2025 07/27/2027 1 1 Encounter Details Date Type Department Care Team (Latest Contact Info) Description 07/06/2025 1:50 PM EST - 07/06/2025 11:59 PM EST Hospital Encounter [place] [phone] [place] [phone] Provider, Unknown Discharge Disposition: Home or Self [...] Info) Description 01/31/2026 10:00 AM EDT Appointment [place] [facility] [place], [place] [phone] Sole Valle PA-C [address] [place] [address] [address] [place] [address] 01/31/2026 10:30 AM EDT Appointment [facility] [place] [phone] Sole Valle PA-C [address] [place] [address] [address] [place] [address] 01/31/2026 11:30 AM EDT Appointment [facility] REANNA [place] [phone] Sole Valle PA-C [address] [place] [address] [address] [place] [address] documented as of this encounter Procedures Procedure [...]
--- OUTSIDE RECORDS SUMMARY | 2025-07-29 11:26 | XMS_ITS | Encounter Summary ---
Author Organization [place] [address] Care Team Providers Care Concrete Fence Builder Name Role Phone Unavailable Primary Care Provider Unavailabl e Reason for Referral * Mammography (Routine) - Pending Review Specialty Diagnoses / Procedures Referred By Contac t Referred To Contact Radiology Diagnoses Abnormal mammogram Procedures MM MAMMO DIGITAL ALEJANDRA DIAGN LEFT Sole Valle PA-C [address] [place] [address] [address] [place] [address] Phone: tel: fax: Referral ID Status Reason Start Date Expiration Date V isits Requested Visits Authorized [id number] Pending Review 07/29/2025 07/29/2027 1 1 * Mammography (Routine) - Pending Review Specialty Diagnoses / Procedures Referred By Shaunna bower Referred To Contact Radiology Diagnoses Abnormal mammogram Procedures MM US BREAST LIMITED LEFT Sole Valle PA-C [address] [place] [address] [place] [address] Phone: tel: fax: Referral ID Status Reason Start Date Expiration Date V isits Requested Visits Authorized [id number] Pending Review 07/29/2025 07/29/2027 1 1 Encounter Details Date Type Department Care Team (Latest Contact Info) Description 07/29/2025 11:26 AM EST - 07/29/2025 11:59 PM EST Hospital Encounter [facility] [place] [address] Sole Valle PA-C [address] [place] [address] [address] [place] [address] Abnormal mammogram (Primary Dx) Discharge Disposition: Home [...] Description 01/31/2026 10:00 AM EDT Appointment [facility] [place] [address] Sole Valle PA-C [address] [place] [address] [address] [place] [address] 01/31/2026 10:30 AM EDT Appointment [facility] [place] [address] Sole Valle PA-C [address] [place] [address] 01/31/2026 11:30 AM EDT Appointment [facility] [place] [address] [facility] [place] [address] Sole Valle PA-C [address] [place] [address] Scheduled Orders Name Type Priority Associated Diagnoses [...]
--- OUTSIDE RECORDS SUMMARY | 2025-08-03 06:56 | XMS_ITS | Encounter Summary ---
Author Organization [place] [address] Care Team Providers Care Shift Leader Name Role Phone Unavailable Primary Care Provider Unavailabl e Reason for Visit * Reason Onset Date Comments Referral 07/26/2025 Encounter Details Date Type Department Care Team (Late st Contact Info) Description 07/26/2025 Telephone [facility] [address] [place] [id number] Irma Peraza RN Referral Social History Tobacco Use Types Packs/Day Years Used Date Smoking Tobacco: Never Assessed Comments Unknown Sex and Gender Information Value Date Recorded Sex Assigned at Not on file Legal Sex Female 3:56 PM EST Gender Identity Not on file Sexual Orientation Not on file documented as of this encounter Miscellaneous Notes * Telephone Encounter - Roseanne Melendez RN - 07/27/2025 1:54 PM EST Per Ashanti, most recent images have been received and in chart. * Telephone Encounter - Irma Peraza RN - 07/27/2025 9:16 AM EST Referral received from fax, JL gave to Charissa [facility], she will request images and let us know. Once images received, JL can done TE as pt is already scheduled 07/29 1130 with Sole CAO * Telephone Encounter - Irma Peraza RN - 07/26/2025 3:56 PM EST Pt called N line for an update on a referral from PROFESSIONAL FEE CODER, Ruth Sinclair at [facility] . Educated pt referral has not been received, pt is going to call office to fax. Fax number provided. 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 Would like a second opinion. Pt is calling for a CBE with VIANEY. Educated pt records and images would be requested by [facility] and thatwe would make sure images available prior to coming in for appt with Sole CAO on 07/29/25 at 2020. Insurance provider: Ernie PARIKH:notify [facility] to request images and wait for referral on fax. documented in this encounter Plan of Treatment Upcoming Encounters Date Type Department Care Team (Late st Contact Info) Description 01/31/2026 10:00 AM EDT Appointment [facility] [place] [address] Sole Valle PA-C [address] [place] [address] [address] [place] [address] 01/31/2026 10:30 AM EDT Appointment [facility] [place] [address] Sole Valle PA-C [address] [place] [address] [address] [place], [place] [id number] 01/31/2026 11:30 AM EDT Appointment [facility] [place] [address] Sole Valle PA-C [address] [place] [address] [address] B[address] [place] [address] documented as of this encounter Visit Diagnoses Not on filedocumented in this encounter
--- OUTSIDE RECORDS SUMMARY | 2025-08-03 06:56 | XMS_ITS | Continuity of Care Document ---
Author Organization [facility] Address [address] [place] [address] Assessment No assessment recorded. 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 Referral None recorded. Procedures None recorded. Surgeries None recorded. Imaging None recorded. Medication Orders ondansetr on 8 mg disintegr ating tablet [address] [facility] [place], [address], 05/06/2025 08:28:14 levothyro xine 125 mcg tablet [address] [facility], [address] [place], [address], 05/06/2025 08:28:15 Wegovy 2.4 mg/0.75 mL subcutane ous pen injector [address] [facility], [address] [place], [address], 05/06/2025 08:28:14 Patient TargetsNo targets recorded. Patient Instructions Encounter Date Encounter Id Patient Instructions Last Modified By Organization Details Last Modified Time 05/06/2025 [id number] body mass index: care instructions Not available 05/06/2025 08:28:14 learning about healthy weight [email or web address] Not available 05/06/2025 08:28:14 RTC in 3 months or sooner as needed. Will plan to check TSH at that appointment. Not available 05/06/2025 08:30:35 Reason for Referral None Reported. Results Created Date Observation Date Name Description Value Unit Range Abnormal Flag Note LastModifiedBy Organization Detail LastModifiedTime 07/06/2007/06/2025 US, priya t, unila teral No observ ation record ed. [email or web address] [facility] [place], [address], 07/07/2025 13:17:12 07/06/20 25 07/06/2025 MAMMO , diagn ostic , digit al, bilat eral No observ ation record ed. [email or web address] (Central Scheduling) [address] [place], [address], 07/07/2025 16:57:24 07/06/2007/06/2025 priya ANAYA, marimara teral No observ ation record ed. [address] (Central Scheduling) [address] [place], [address], 07/07/2025 16:57:25 07/06/2007/06/2025 MAMMO , diagn ostic , digit al, bilat eral No observ ation record ed. [email or web address] [facility] [address] [place] [address] P[place], [address], 07/07/2025 13:17:28 07/11/20 25 07/09/2025 trans -thor acic echoc ardio gram (TTE) (PROC ) No observ ation record ed. [facility] [address], [place], [address], 07/11/2025 16:10:27 Result Notes None recorded. Problems Name Problem SNOMED Code Status Onset Date Resolution Date Notes Provider Name and Address Organization Details Recorded Time Hypothyroid ism 73235318 Active Mallory Montalvo MD [address], [place], [address], [place] [facility] 3 17:11:22 Gastroesoph ageal reflux disease without esophagitis 444951839 Active 2020 Mallory Montalvo MD [address], [place], [address], [place] [facility] 2 17:42:38 Obstructive sleep apnea syndrome 52770760 Active 2021 Mallory Montalvo MD [address], [place], [address], [place] [facility] 2 17:42:38 Mixed hyperlipide bruna 468945100 Active 2021 Mallory Montalvo MD [address], [place], [address], [place] [facility] 3 17:00:17 Body mass index 30+ - obesity 370349562 Active 2022 Francoise Zuluaga , [employer] [address], [place], [address], [place] [facility] 5 09:04:31 Asthma 392883329 Active 2022 Mallory Montalvo MD [address], [place], [address], [place] [facility] 3 17:32:13 History of total hysterectom y 838127494 Active 2022 Ruth Sinclair, [employer] [address], [place], [address], [place] [facility] 3 15:46:38 Elevated blood-press ure reading without diagnosis of hypertensio n 549996733 Active 2022 Mallory Montalvo MD [address], [place], [address], [place] [facility] 3 17:11:26 Hypertensiv e disorder 21046333 Active 2022 Mallory Montalvo MD [address], [place], [address], [place] [facility] 3 17:13:11 Acute bronchitis 67680810 Completed 202306/22/2024 Estrellita Osorio null, [place] - [facility] 5 11:47:12 Acute diarrhea 622837450 Completed 202306/22/2024 Estrellita Osorio null[place] - [facility] 4 08:49:06 Cough 61738151 Completed 202306/22/2024 Estrellita Osor[place] [facility] 5 11:47:33 Acute gastroenter itis 72806832 Completed 202306/22/2025 Estrellita Osorio null[place] [facility] 5 11:47:37 Acute infectious nonbacteria l gastroenter itis 591518878 Completed 202306/22/2025 Estrellita chinchilla, [place] - [facility] 5 11:47:24 External hemorrhoids 59256075 Active 2023 Mallory Montalvo MD [address], [place], [address], [place] [facility] 4 13:59:51 Folic acid deficiency 223380460 Active 2023 Francoise Zuluaga [employer] [address], [place], [address], [place] [facility] 4 11:02:55 Vitamin D deficiency 59171235 Active 2023 Francoise Zuluaga APRN [address], [place], [address], [place] [facility] 5 09:06:21 Acute maxillary sinusitis 36068717 Completed 202306/22/2025 Estrellita chinchilla, [place] - [facility] 5 11:47:35 Obese 863508790 Active 2023 Francoise Zuluaag APRN [address], [place], [address], [place] [facility] 4 10:11:24 Obesity 099302124 Active 2023 Francoiseelana Zuluaga , [employer] [address], [place], [address], [place] [facility] 4 10:11:26 Acute bronchitis 83442252 Completed 202306/22/2025 Estrellita Jo null, [place] - [facility] 5 11:47:12 Cough 56082587 Completed 202306/22/2025 Estrellita Osorio null[place] - [facility] 5 11:47:33 Anxiety 42468753 Active 2024 Francoise Zuluaga , [employer] [address], [place], [address], [place] [facility] 5 16:47:04 Dyslipidemi a 430750048 Active 2024 Francoise Zuluaga APRN [address], [place], [address], [place] [facility] 5 09:09:59 Hyperkalemi a 78008603 Active 2024 Francoise Zuluaga , [employer] [address], [place], [address], [place] [facility] 5 09:42:55 Nausea 452191317 Active 2024 Francoise Zuluaga [employer] [address], [place], [address], [place] [facility] 5 08:13:42 Overweight in adulthood with body mass index of 25 or more but less than 30 908392332 Active 2024 Ruth Sinclair APRN [address], [place], [address], [place] [facility] 5 09:25:22 Breast lump 79160357 Active 2024 Ruth Sinclair [employer] [address], [place], [address], [place] [facility] 5 09:26:24 Irregular heart beat 855687799 Active 2024 Ruth Sinclair, [employer] [address], [place], [address], [place] [facility] 09:30:41 Mild mitral valve regurgitati on 909226461 Active 2024 Francoise Zuluaga , [employer] [address], [place], [address], [place] [facility] 16:09:37 Problem Notes None recorded. Procedures Surgical History Date Name Laterality Status Provider Name and Address Organization Details Recorded Time 025 Medication Reconcilliation completed Makenzie Foster [place] - [facility] 10/01/2024 07:45:53 025 Date of Last Mammogram completed Ruth Sinclair, [employer] [address], [place], [address], [place] - [facility] 08/24/2024 10:05:24 024 anal fissurectomy completed Estrellita Osorio [place] - [facility] 06/22/2024 08:58:03 024 Medication Reconcilliation completed Maritza Larkin [place] - [facility] 10/23/2023 13:28:53 024 Medication Reconcilliation completed Leigh Nunez [place] [facility] 10/17/2023 13:13:57 023 Medication Reconcilliation completed Maritza Lakrin [place] [facility] 08/14/2022 16:49:21 010 laparoscopic total hysterectomy completed Estrellita Osorio [place] - [facility] 06/17/2023 15:20:34 010 Date of Last Pap Smear completed Estrellita Schumacher [place] [facility] 04/09/2022 15:35:45 Eye Surgery completed Estrellita Osorio [place] - [facility] 06/17/2023 15:17:49 Dilation and Curettage, sharp completed Ruth Sinclair, [employer] [address], [place], [address], [place] [facility] 06/17/2023 15:46:20 Diagnostic Laparoscopy completed Jayna Bhakta [place] - [facility] 08/01/2016 12:18:04 Thyroid Surgery completed Ruth grullon, [employer] [address], [place], [address], [place] [facility] 06/17/2023 15:45:52 Tubal Ligation [...] nued on: 10/08/19 14 10:01AM; User: mary EstRadhika Completi on: 10/13/19 14;Indic ation: Acute Bacteria [...] Disconti nued on: 06/05/20 12 1:45PM;U ser: colette ec Not Available Not Available Not [...] User: [email or web address] ;Est. Completi on: 11/01/19 15;Pharm acyVerif ied: 09/01/19 15 9:25AM Not Available Not [...] Disconti nued on: 07/04/20 11 3:50PM;U ser: keefk;Wendy t. Completi on: 03/29/20 10;Indic ation: Allergic Rhinitis - (2679 );Prin danielle: 12/30/19 10 Not Available Not Available [...] nued on: 12/13/19 10 2:32PM;U ser: otoniel Diazi on: 10/12/19 10 Not Available Not Available [...] iscontin ued Status: Disconti nued on: 08/23/19 3:08PM;U ser: calvom;E st. Completi on: 05/23/20 [...] e 50 mcg/actua tion nasal spray,mary pension [place] 1 spray every day by intranas al [...] Disconti nued on: 03/09/20 10 10:08AM; User: eloy;Pr inted: 02/22/20 10 Not Available Not Available [...] Updated DateTime 5 156.85 cm 29.7 kg/m2 74294.3 7 g 97.8 [degF] 0 18 /min 81 /min 98 % 120/68 mm[Hg] Makenzie Foster [place] - [facility] 5 08:04:14 Social History Question Answer Notes LastModified by Organization Details LastModified Time Tobacco Smoking Status Never Smoker Jayna Bhakta amor [place] - [facility] 08/01/2016 12:16:25 Able To Swim? Yes [email or web address] Information not available 06/17/2023 Do You Have An Advance Directive? No Information not available 08/01/2016 How Many Years Have You Consumed Alcohol? 19 [email or web address] Information not available 06/17/2023 Are You Blind Or Do You Have Difficulty Seeing? No [email or web address] Information not available 06/17/2023 Is Blood Transfusion Acceptable In An Emergency? Yes [email or web address] Information not available 04/09/2022 What Is Your Level Of Caffeine Consumption? Moderate [email or web address] Information not available 06/17/2023 How Much Tobacco Do You Chew? None Information not available 05/14/2019 In The 14 Days Before Symptom Onset, Have You Had Close Contact With A Laboratory-conf irmed COVID-19 While That Case Was Ill? No [email or web address] Information not available 06/17/2023 In The 14 Days Before Symptom Onset, Have You Had Close Contact With A Person Who Is Under Investigation For COVID-19 While That Person Was Ill? No [email or web address] Information not available 06/17/2023 Have You Been [...] Virus Disease Patient Without Appropriate PPE? No [email or web address] Information not available 06/17/2023 Do You Reside In Or Have You Traveled To An Area Where Ebola Virus Transmission Is Active? No [email or web address] Information not available 06/17/2023 What Is The Highest Grade Or Level Of School You Have Completed Or The Highest Degree You Have Received? LI40974-6 [email or web address] Information not available 06/22/2024 Swimming/diving Yes [email or web address] Informati on not available 06/17/2023 Have There Been Any Changes To Your Family Or Social Situation? No [email or web address] Information not available 06/17/2023 What Is The Fluoride Status Of Your Home? Unknown [email or web address] Information not available 06/17/2023 Hard Of Hearing Or Deaf In One Or Both Ears? No [email or web address] Information not available 06/17/2023 Have You Recently Or Are You Planning To Travel To An Area With Zika Virus? No [email or web address] Information not available 06/17/2023 How Many Years Have You Used Illicit Or Recreational Drugs? 0 [email or web address] Information not available 06/17/2023 Legally Blind In One Or Both Eyes? No Information not available 06/17/2023 Live Alone Or With Others? With Others [email or web address] Information not available 06/17/2023 Do You Have A Medical Power Of Sports Equipment Racker? No [email or web address] Information not available 06/17/2023 What Was The Date Of Your Most Recent Tobacco Screening? 06/25/2025 [email or web address] Information not available 06/25/2025 How Many Children Do You Have? 1 Information not available 05/14/2019 Do You Use Protection During Sex? No [email or web address] Information not available 06/17/2023 Do You Use Protection Against STDs? No Information not available 04/09/2022 What Is Your Relationship Status? Information not available 06/22/2024 Do You Use Your Seat Belt Or Car Seat Routinely? Yes [email or web address] Information not available 06/17/2023 Seat Belts Used Routinely Yes Information not available 06/17/2023 Are You Sexually Active? Yes [email or web address] Information not available 06/25/2025 Smoke Alarm In Home Yes [email or web address] Information not available 06/17/2023 Do You Have Smoke And Carbon Monoxide Detectors In Your Home? Yes [email or web address] Information not available 04/09/2022 Are You Passively Exposed To Smoke? No Information not available 05/14/2019 How Much Tobacco Do You Smoke? No [email or web address] Information not available 06/17/2023 General Stress Level Low Information not available 06/17/2023 Do You Use Sunscreen Routinely? No [email or web address] Information not available 06/17/2023 Has Tobacco Cessation Counseling Been Provided? Yes pupxlbv89 Information not available 06/25/2025 On What Date Was Tobacco Cessation Counseling Provided? 06/25/2025 [email or web address] Information not available 06/25/2025 Do You Have Difficulty Walking Or Climbing Stairs? No [email or web address] Information not available 06/17/2023 What Contraceptive Method Was Reported At Start Of This Visit? Female Sterilization Hysterectomy [email or web address] Information not available 06/17/2023 Do You Want To Talk About Contraception Or Prevention During Your Visit Today? No - I Do Not Want To Talk About Contraception Today Because I Am Here For Something Else [email or web address] Information not available 06/17/2023 Do You Have Any Future Plans To Get ? No, I Don't Want To Become [email or web address] Information not available 06/17/2023 Sex: Female Functional [...] 05/14/2019 Do you have transportation difficulties? No lwpcqux09 Information not available 06/17/2023 Are you able to care for yourself independently? Yes Information not available 08/01/2016 Do you have difficulty dressing, bathing, grooming, or toileting? No cpoouwq61 Information not available 06/17/2023 Do you or have you ever used e-cigarettes or vape? Never used electronic cigarettes Information not available 05/14/2019 What is your exercise level? Occasional gqploxt97 Information not available 06/17/2023 Do you use any illicit or recreational drugs? No shpyzbs16 Information not available 06/17/2023 Do you or have you ever used any other forms of tobacco or nicotine? No iqhegrg38 Information not available 06/17/2023 What is your level of alcohol consumption? Occasional [email or web address] Information not available 04/09/2022 What is your status? Not [email or web address] Information no t available 06/17/2023 Are you able to walk independently without assistance or assistive devices? YESWOREST iredxdo19 Information not available 06/17/2023 Do you have difficulty doing errands alone? No [email or web address] Information not available 06/17/2023 What is your occupation? [employer] [place] jcfowwe70 Information not available 06/17/2023 Mental Status Question Answer Note LastModified by Organizat ion Details LastModified Time Do you feel stressed (tense, restless, nervous, or anxious, or unable to sleep at night)? [id number] [email or web address] Information not available 06/22/2024 Do you have difficulty concentrating, remembering or making decisions? No [email or web address] Information no t available 06/17/2023 Family History Relationship Description Onset Age of this Age Resolved Age Notes LastModified by Organization Details LastModified Time Maternal Grandmother Cerebrovascu lar accident Not available 12:15:03 Maternal Grandmother Hypertensive disorder Not available 2015 12:15:30 Maternal Grandmother Myocardial infarction [email or web address] Not available 06/25 08:23:25 Maternal Grandmother Heart disease 38 53 [email or web address] Not available 2022 15:09:14 Paternal Grandfather Neoplasm of prostate [email or web address]-251 Not available 2024 08:23:25 Paternal Grandfather Malignant neoplasm of lung Not available 2022 15:22:24 Mother Asthma Not available 06/17/2023 15:09:14 Mother Anxiety disorder [email or web address] Not available 2022 15:22:24 Mother Depressive disorder [email or web address] Not available 2022 15:22:24 Mother Obesity [email or web address] Not available 06/17/2023 15:09:14 Mother Substance abuse [email or web address] Not available 2022 15:09:14 Son Asthma [email or web address] Not available 06/17/2023 15:09:14 Unspecified Relation Disorder of thyroid gland [email or web address] Not available 2024 08:23:25 Paternal Aunt Malignant neoplasm of transverse colon [email or web address] Not available 2024 08:23:25 Maternal Aunt Malignant neoplasm of breast Not available 2023 08:42:35 Sister Disorder of thyroid gland Not available 2023 08:42:35 Father Polyp of [...] colitis N Cerebrovascular Disease N Depression N Guillain-[place] N Sleep Apnea Y Aneurysm N Bronchitis [...] split virus, quadrivalent, preservative 1 completed Maritza chinchilla, [place] - [facility] 05/10/2021 17:42:04 influenza, unspecified formulation 5 completed Not Available [facility] 09[facility]26[facility]2023 10:48:58 Tdap 4 completed Francoise Zuluaga, [employer] [address], [place], [address] [place] - [facility] 05/18/2024 10:49:30 Influenza, split virus, trivalent, PF 4 completed Charissa Baca null, [place] [facility] 06/29/2024 08:52:46 Influenza, split virus, trivalent, PF 5 completed Francoise Zuluaga APRN [address], [place], [address], [place] [facility] 05/06/2025 08:28:15 COVID-19, mRNA, [...] 15:09:55 Hep A, adult 8 completed Estrellita [place] [facility] 06/17/2023 15:09:55 Influenza, split virus, trivalent, preservative 3 completed Estrellita Schumacher [place] [facility] 07/18/2023 09:31:26 Influenza, split virus, trivalent, PF 2 completed Estrellita Sal[place]elman [place] [facility] 07/18/2023 09:31:26 Influenza, split virus, quadrivalent, PF 3 completed Estrellita Sal[place]elman [place] [facility] 07/18/2023 09:31:26 Past Encounters Encounter ID Performer Location Encounter Start Date Encounter Closed Date Diagnosis/Indication Diagnosis SNOMED-CT Code Diagnosis ICD10 Code Diagnosis IMO Codes Diagnosis Note [id number] Francoise Zuluaga APRN [address] [place] [facility] [place] [address] 05/06/2025 07:55:47 05/06/2025 08:25:38 Body mass index 30+ - obesity 584650172 E66.9 8559170 BMI 29.7Doing well on Wegovy.Ranjan ght is down 27 pounds since initiating . Overweight in adulthood with body mass index of 25 or more but less than 30 431565717 E66.3 Z68.29 3355438519 Nausea 986847821 R11.0 Repeated prescription 18 4226491 Z76.0 638938 Influenza vaccine needed 6622849517 106 Z23 Health Concerns Section Related Observation LastModified by Organization Detai ls LastModified Time None Recorded Concern Status LastModified by Organization Details LastModified Time None Recorded Payers Encounter Date Sequence Insurance Name Policy Number Policy Franco Covered Member ID Franco Member ID Guarantor Name 05/06/2025 1 [employer] (PPO) [id number] 2 Tiffany Ireland [id number] Tiffany Ireland Notes Date Note Type [...] a new prescription of zofran. Francoise Zuluaga, [employer] [address], [place], [address], [place] [facility] 05/06/2025 08:30:49 OBGyn Episode No OBEpisode recorded.
--- OUTSIDE RECORDS SUMMARY | 2025-08-03 06:56 | XMS_ITS | Continuity of Care Document ---
Author Organization [facility] Jorge Roberts [facility] Address [address] [place] [address] Assessment Encounter Date Assessment Date Assessment LastModified [...] posted in patient waiting rooms and bathrooms. 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 Referral gastroent erologist referral 2024 025 [email or web address] Mukund Landeros MD, [address] [facility] , [facility] [address], [place], [address], 07/27/2025 16:53:58 cardiolog ist referral - Irregular rhythm on AWE, asymptoma tic; 2024 025 MAURILIO Diaz MD, [address] [place] [address] [address], [place], [address], 07/27/2025 10:16:25 Procedures None recorded. Surgeries None recorded. Imaging MAMMO, diagnosti c, digital, bilateral - palpable mobile cluster of densities lateral aspect left breast-3: 00 position 2024 025 MAURILIO Jaeger (Centralized Scheduling), [place], [address], 07/06/2025 15:54:21 US, breast, unilatera l - palpable mobile cluster of densities lateral aspect left breast-3: 00 position 2024 025 MAURILIO Jaeger (Centralized Scheduling), [place], [address], 07/06/2025 15:54:26 Medication Orders None recorded. Patient TargetsNo targets recorded. 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 [email or web address] [place] (Centralized Scheduling) [place], [address], 07/07/2025 13:17:12 07/06/2007/06/2025 MAMMO , diagn ostic , digit al, bilat eral No observ ation record ed. [email or web address] (Central Scheduling) [address] [facility] [place], [address], 07/07/2025 16:57:24 07/06/2007/06/2025 US, breas t, unila teral No observ ation record ed. [email or web address] (Central Scheduling) [address] [facility] [place], [address], 07/07/2025 16:57:25 07/06/2007/06/2025 MAMMO , diagn ostic , digit al, bilat eral No observ ation record ed. [email or web address] [place] (Centralized Scheduling) [address] [place] [address] [place], [address], 07/07/2025 13:17:28 07/11/2007/09/2025 trans -thor acic echoc ardio gram (TTE) (PROC ) No observ ation record ed. [facility] [address], [place], [address], 07/11/2025 16:10:27 Result Notes None recorded. Problems Name Problem SNOMED Code Status Onset Date Resolution Date Notes Provider Name and Address Organization Details Recorded Time Hypothyroid ism 61317273 Active Mallory Montalvo MD [address], [place], [address], [place] [facility] 17:11:22 Gastroesoph ageal reflux disease without esophagitis 492671960 Active 2020 Mallory Montalvo MD [address], [place], [address], [place] [facility] 2 17:42:38 Obstructive sleep apnea syndrome 81488036 Active 2021 Mallory Montalvo MD [address], [place], [address], [place] [facility] 2 17:42:38 Mixed hyperlipide bruna 762191108 Active 2021 Mallory Montalvo MD [address], [place], [address], [place] [facility] 17:00:17 Body mass index 30+ - obesity 837509059 Active 2022 Francoise Zuluaga , [employer] [address], [place], [address], [place] [facility] 5 09:04:31 Asthma 878146143 Active 2022 Mallory Montalvo MD [address], [place], [address], [place] [facility] 17:32:13 History of total hysterectom y 050004267 Active 2022 Ruth Lucker, [employer] [address], [place], [address], [place] [facility] 3 15:46:38 Elevated blood-press ure reading without diagnosis of hypertensio n 294216623 Active 2022 Mallory Montalvo MD [address], [place], [address], [place] [facility] 17:11:26 Hypertensiv e disorder 09649891 Active 2022 Mallory Montalvo MD [address], [place], [address], [place] [facility] 17:13:11 Acute bronchitis 59311828 Completed 202306/22/2024 Estrellita Osorio null, [place] - [facility] 5 11:47:12 Acute diarrhea 108960258 Completed 202306/22/2024 Estrellita Osorio null[place] [facility] 4 08:49:06 Cough 16214574 Completed 202306/22/2024 Estrellita Osorio null[place] [facility] 5 11:47:33 Acute gastroenter itis 52936522 Completed 202306/22/2025 Estrellita Osorio null[place] [facility] 5 11:47:37 Acute infectious nonbacteria l gastroenter itis 727569236 Completed 202306/22/2025 Estrellita Osorio [place] - [facility] 5 11:47:24 External hemorrhoids 04566967 Active 2023 Mallory Montalvo MD [address], [place], [address], [place] [facility] 4 13:59:51 Folic acid deficiency 472791087 Active 2023 Francoise Zuluaga , [employer] [address], [place], [address], [place] [facility] 11:02:55 Vitamin D deficiency 14560195 Active 2023 rFancoise Zuluaga , [employer] [address], [place], [address], [place] [facility] 09:06:21 Acute maxillary sinusitis 32418664 Completed 202306/22/2025 Estrellita Osorio null[place] - [facility] 5 11:47:35 Obese 933415494 Active 2023 Francoise Zuluaga , [employer] [address], [place], [address], [place] [facility] 10:11:24 Obesity 242691718 Active 2023 Francoise Zuluaga , [employer] [address], [place], [address], [place] [facility] 4 10:11:26 Acute bronchitis 05685094 Completed 202306/22/2025 Estrellita Osorio null[place] - [facility] 11:47:12 Cough 87094773 Completed 202306/22/2025 Estrellita Osorio null[place] [facility] 5 11:47:33 Anxiety 83079476 Active 2024 Francoise Zuluaga , [employer] [address], [place], [address], [place] [facility] 16:47:04 Dyslipidemi a 693193377 Active 2024 Francoise Cisnerosoberts , [employer] [address], [place], [address], [place] [facility] 09:09:59 Hyperkalemi a 80377627 Active 2024 Francoise Zuluaga , [employer] [address], [place], [address], [place] [facility] 09:42:55 Nausea 573385163 Active 2024 Francoise Zuluaga , [employer] [address], [place], [address], [place] [facility] 08:13:42 Overweight in adulthood with body mass index of 25 or more but less than 30 634970706 Active 2024 Ruth Sinclair APRN [address], [place], [address], [place] [facility] 5 09:25:22 Breast lump 12337565 Active 2024 Ruth Sinclair APRN [address], [place], [address], [place] [facility] 09:26:24 Irregular heart beat 946297301 Active 2024 Ruth Sinclair APRN [address], [place], [address] [facility] 5 09:30:41 Mild mitral valve regurgitati on 177049979 Active 2024 Francoise Cisneroswayne [employer] [address], [place], [address], [place] [facility] 16:09:37 Problem Notes None recorded. Procedures Surgical History Date Name Laterality Status Provider Name and Address Organization Details Recorded Time 025 Medication Reconcilliation completed Makenzie Foster [place] - [facility] 10/01/2024 07:45:53 025 Date of Last Mammogram completed Ruth Sinclair APRN [address], [place], [address], [place] [facility] 08/24/2024 10:05:24 024 anal fissurectomy completed Estrellita Osorio [place] - [facility] 06/22/2024 08:58:03 024 Medication Reconcilliation completed Maritza Larkin [place] - [facility] 10/23/2023 13:28:53 024 Medication Reconcilliation completed Leigh Nunez [place] [facility] 10/17/2023 13:13:57 023 Medication Reconcilliation completed Maritza Larkin [place] [facility] 08/14/2022 16:49:21 010 laparoscopic total hysterectomy completed Estrellita Osorio [place] - [facility] 06/17/2023 15:20:34 010 Date of Last Pap Smear completed Estrellita Schumacher [place] - [facility] 04/09/2022 15:35:45 Eye Surgery completed Estrellita Osorio [place] [facility] 06/17/2023 15:17:49 Dilation and Curettage, sharp completed Ruth Sinclair, [employer] [address], [place], [address], [place] [facility] 06/17/2023 15:46:20 Diagnostic Laparoscopy completed Vanesaraphael Livia [place] - [facility] 08/01/2016 12:18:04 Thyroid Surgery completed Ruth grullon, [employer] [address], [place], [address], [place] - [facility] 06/17/2023 15:45:52 Tubal Ligation completed Estrellita Schumacher [place] - [facility] 04/09/2022 15:37:32 Imaging Results None [...] Disconti nued on: 09/13/19 12 4:30PM;U ser: gillisa; Indicati on: Cough - (16.7862 00);Prin danielle: [...] on: 03/29/20 10;Indic ation: Allergic Rhinitis - (4879 );Prin danielle: 12/30/19 10 Not Available Not [...] e 50 mcg/actua tion nasal spray,mary pension [place] 1 spray every day by intranas al [...] Disconti nued on: 03/09/20 10 10:08AM; User: Mika inted: 02/22/20 10 Not Available Not Available [...] TWO (2) TABLETS BY MOUTH TWICE DAILY 01/29/ 2024 02/05 /2024 completed Not Available Not Available Not Available [...] Updated DateTime 06/25/2025 156.85 cm 29.2 kg/m2 27555.31 g 0 102/60 mm[Hg] Estrellita Osorio [place] - [facility] 08:37:43 Social History Question Answer Notes LastModified by Organization Details LastModified Time Tobacco Smoking Status Never Smoker Jayna chinchilla, [place] - [facility] 08/01/2016 12:16:25 Able To Swim? Yes [email or web address] Information not available 06/17/2023 Do You Have An Advance Directive? No Information not available 08/01/2016 How Many Years Have You Consumed Alcohol? 19 [email or web address] Information not available 06/17/2023 Are You Blind Or Do You Have Difficulty Seeing? No [email or web address] Information not available 06/17/2023 Is Blood Transfusion Acceptable In An Emergency? Yes [email or web address] Information not available 04/09/2022 What Is Your Level Of Caffeine Consumption? Moderate [email or web address] Information not available 06/17/2023 How Much Tobacco Do You Chew? None Information not available 05/14/2019 In The 14 Days Before Symptom Onset, Have You Had Close Contact With A Laboratory-conf irmed COVID-19 While That Case Was Ill? No [email or web address] Information not available 06/17/2023 In The 14 Days Before Symptom Onset, Have You Had Close Contact With A Person Who Is Under Investigation For COVID-19 While That Person Was Ill? No [email or web address] Information not available 06/17/2023 Have You Been To An Area Known To Be High Risk For COVID-19? No [email or web address] Information not available 06/17/2023 Are You Deaf Or Do You Have Serious Difficulty Hearing? No Information not available 08/01/2016 What Type Of Diet Are You Following? REGULAR Information not available 08/01/2016 Which Illicit Or Recreational Drugs Have You Used? Denies Information not available 05/14/2019 Have You Processed Blood Or Body Fluids From An Ebola Virus Disease Patient Without Appropriate PPE? No [email or web address] Information not available 06/17/2023 Do You Reside In Or Have You Traveled To An Area Where Ebola Virus Transmission Is Active? No [email or web address] Information not available 06/17/2023 What Is The Highest Grade Or Level Of School You Have Completed Or The Highest Degree You Have Received? [id number] [email or web address] Information not available 06/22/2024 Swimming/diving Yes [email or web address] Informati on not available 06/17/2023 Have There Been Any Changes To Your Family Or Social Situation? No ayehmtm89 Information not available 06/17/2023 What Is The Fluoride Status Of Your Home? Unknown [email or web address] Information not available 06/17/2023 Hard Of Hearing Or Deaf In One Or Both Ears? No [email or web address] Information not available 06/17/2023 Have You Recently Or Are You Planning To Travel To An Area With Zika Virus? No [email or web address] Information not available 06/17/2023 How Many Years Have You Used Illicit Or Recreational Drugs? 0 ahadxsk30 Information not available 06/17/2023 Legally Blind In One Or Both Eyes? No aggqoiz71 Information not available 06/17/2023 Live Alone Or With Others? With Others [email or web address] Information not available 06/17/2023 Do You Have A Medical Power Of Extension Worker? No [email or web address] Information not available 06/17/2023 What Was The Date Of Your Most Recent Tobacco Screening? 06/25/2025 [email or web address] Information not available 06/25/2025 How Many Children Do You Have? 1 Information not available 05/14/2019 Do You Use Protection During Sex? No [email or web address] Information not available 06/17/2023 Do You Use Protection Against STDs? No Information not available 04/09/2022 What Is Your Relationship Status? [email or web address] Information not available 06/22/2024 Do You Use Your Seat Belt Or Car Seat Routinely? Yes [email or web address] Information not available 06/17/2023 Seat Belts Used Routinely Yes Information not available 06/17/2023 Are You Sexually Active? Yes [email or web address] Information not available 06/25/2025 Smoke Alarm In Home Yes [email or web address] Information not available 06/17/2023 Do You Have Smoke And Carbon Monoxide Detectors In Your Home? Yes [email or web address] Information not available 04/09/2022 Are You Passively Exposed To Smoke? No Information not available 05/14/2019 How Much Tobacco Do You Smoke? No [email or web address] Information not available 06/17/2023 General Stress Level Low sxcvbse59 Information not available 06/17/2023 Do You Use Sunscreen Routinely? No fcyscou20 Information not available 06/17/2023 Has Tobacco Cessation Counseling Been Provided? Yes [email or web address] Information not available 06/25/2025 On What Date Was Tobacco Cessation Counseling Provided? 06/25/2025 [email or web address] Information not available 06/25/2025 Do You Have Difficulty Walking Or Climbing Stairs? No [email or web address] Information not available 06/17/2023 What Contraceptive Method Was Reported At Start Of This Visit? Female Sterilization Hysterectomy ydmtmsx14 Information not available 06/17/2023 Do You Want To Talk About Contraception Or Prevention During Your Visit Today? No - I Do Not Want To Talk About Contraception Today Because I Am Here For Something Else pcluxid92 Information not available 06/17/2023 Do You Have Any Future Plans To Get ? No, I Don't Want To Become [email or web address] Information not available 06/17/2023 Sex: Female Functional [...] 05/14/2019 Do you have transportation difficulties? No ehxhjcr39 Information not available 06/17/2023 Are you able to care for yourself independently? Yes Information not available 08/01/2016 Do you have difficulty dressing, bathing, grooming, or toileting? No glzxzad40 Information not available 06/17/2023 Do you or have you ever used e-cigarettes or vape? Never used electronic cigarettes Information not available 05/14/2019 What is your exercise level? Occasional qkkibii24 Information not available 06/17/2023 Do you use any illicit or recreational drugs? No aszwmjr84 Information not available 06/17/2023 Do you or have you ever used any other forms of tobacco or nicotine? No uiihaog58 Information not available 06/17/2023 What is your level of alcohol consumption? Occasional [email or web address] Information not available 04/09/2022 What is your status? Not Information no t available 06/17/2023 Are you able to walk independently without assistance or assistive devices? YESWOREST Information not available 06/17/2023 Do you have difficulty doing errands alone? No [email or web address] Information not available 06/17/2023 What is your occupation? [employer] [place] Information not available 06/17/2023 Mental Status Question Answer Note LastModified by Organizat ion Details LastModified Time Do you feel stressed (tense, restless, nervous, or anxious, or unable to sleep at night)? [id number] [email or web address] Information not available 06/22/2024 Do you have difficulty concentrating, remembering or making decisions? No dvpvucu52 Information no t available 06/17/2023 Family History Relationship Description Onset Age of this Age Resolved Age Notes LastModified by Organization Details LastModified Time Maternal Grandmother Cerebrovascu lar accident Not available 12:15:03 Maternal Grandmother Hypertensive disorder Not available 2015 12:15:30 Maternal Grandmother Myocardial infarction [email or web address]-251 Not available 06/25 08:23:25 Maternal Grandmother Heart disease 38 53 [email or web address] Not available 2022 15:09:14 Paternal Grandfather Neoplasm of prostate API-251 Not available 2024 08:23:25 Paternal Grandfather Malignant neoplasm of lung [email or web address] Not available 2022 15:22:24 Mother Asthma [email or web address] Not available 06/17/2023 15:09:14 Mother Anxiety disorder Not available 2022 15:22:24 Mother Depressive disorder [email or web address] Not available 2022 15:22:24 Mother Obesity [email or web address] Not available 06/17/2023 15:09:14 Mother Substance abuse Not available 2022 15:09:14 Son Asthma [email or web address] Not available 06/17/2023 15:09:14 Unspecified Relation Disorder of thyroid gland [email or web address]-251 Not available 2024 08:23:25 Paternal Aunt Malignant neoplasm of transverse colon API-251 Not available 2024 08:23:25 Maternal Aunt Malignant neoplasm of breast [email or web address] Not available 2023 08:42:35 Sister Disorder of thyroid gland [email or web address] Not available 2023 08:42:35 Father Polyp of [...] colitis N Cerebrovascular Disease N Depression N Guillain-Tomales N Sleep Apnea Y Aneurysm N Bronchitis [...] virus, quadrivalent, preservative 1 completed Maritza Larkin [facility] 05/10/2021 17:42:04 influenza, unspecified formulation 5 completed Not Available [facility] 09/26/2023 10:48:58 Tdap 4 completed Francoise Zuluaga, [employer] [address], [place], [address], [place] - [facility] 05/18/2024 10:49:30 Influenza, split virus, trivalent, PF 4 completed Charissa Baca [facility] 06/29/2024 08:52:46 Influenza, split virus, trivalent, PF 5 completed Francoise Zuluaga, [employer] [address], [place], [address], [place] [facility] 05/06/2025 08:28:15 COVID-19, mRNA, LNP-S, PF, 100 mcg/0.5mL dose or 50 mcg/0.25mL dose 1 [facility]/17[facility]2023 15:09:55 COVID-19, mRNA, LNP-S, PF, 100 mcg/0.5mL dose or 50 mcg/0.25mL dose 1 [facility]/17[facility]2023 15:09:55 COVID-19, mRNA, LNP-S, PF, 30 mcg/0.3 mL dose 1 completed Estrellita Osor[place] [facility] 06/17/2023 15:09:55 Hep A, adult 9 completed Estrellita [place] [facility] 06/17/2023 15:09:55 Hep A, adult 8 completed Estrellita Conklinann [place] [facility] 06/17/2023 15:09:55 Influenza, split virus, trivalent, preservative 3 completed Estrellita Schumacher [place] [facility] 07/18/2023 09:31:26 Influenza, split virus, trivalent, PF 2 completed Estrellita Kimanimark anthony null, [place] - [facility] 07/18/2023 09:31:26 Influenza, split virus, quadrivalent, PF 3 completed Estrellita Schumacher null, [place] - [facility] 07/18/2023 09:31:26 Past Encounters Encounter ID Performer Location Encounter Start Date Encounter Closed Date Diagnosis/Indication Diagnosis SNOMED-CT Code Diagnosis ICD10 Code Diagnosis IMO Codes Diagnosis Note [id number] SKYE Art [facility] [facility] [place] [address] 06/25/2025 08:23:22 06/25/2025 09:23:29 Routine gynecologic examination done 4926086093 9101 Z01.419 Depression screening 171 220384 Z13.31 PHQ-9 completed today. Diet education 39145204 Z71.3 Encourage healthy eating/avalos it unhealthy fats, sugars, fried foods Counseling 447616413 Z71 .82 Encouraged regular exercise 30-40min/d ay 4-5 days/wk Examinatio n of blood pressure 243160629 Z01.30 History of total hysterectomy 998899799 Z90.710 w/ovarian conservati on Hypertensive disorder 38 698733 I10 Overweight in adulthood with body mass index of 25 or more but less than 30 739886402 E66.3 Z68.29 4403619042 Screening for malignant neoplasm of colon 463746607 Z12.11 300792 Breast lump 08939386 N63 .25 2487401479 Irregular heart beat 361 347200 I49.9 [id number] Health Concerns Section Related Observation LastModified by Organization Detai ls LastModified Time None Recorded Concern Status LastModified by Organization Details LastModified Time None Recorded Payers Encounter Date Sequence Insurance Name Policy Number Policy Franco Covered Member ID Franco Member ID Guarantor Name 06/25/2025 1 [employer] [id number] 2 Tiffany Osman Shu [id number] Tiffany Ireland Notes Date Note Type [...] lost approx 50# with [employer]! Ruth Sinclair, [employer] [address], [place], [address], [place] [facility] 06/25/2025 09:41:56 OBGyn Episode No OBEpisode recorded.
--- OUTSIDE RECORDS SUMMARY | 2025-08-03 06:56 | XMS_ITS | Encounter Summary ---
Author Organization [place] [address] Care Team Providers Care Grey Roll Man Name Role Phone Unavailable Primary Care Provider Unavailabl e Reason for Visit * Reason Onset Date Comments Appointment Needed 07/29/2025 Encounter Details Date Type Department Care Team ([facility] Contact Info) Description 07/29/2025 Telephone [facility] [place] [id number] Reba Babb MA Appointment Needed Social History Tobacco Use Types Packs/Day Years Used Date Smoking Tobacco: Never Assessed Comments Unknown Sex and Gender Information Value Date Recorded Sex Assigned at Not on file Legal Sex Female 3:56 PM EST Gender Identity Not on file Sexual Orientation Not on file documented as of this encounter Miscellaneous Notes * Telephone Encounter - Reba Babb Clerical Staff - 07/29/2025 12:53 PM EST Appointment scheduled - patient will check myChart * Telephone Encounter - Reba Babb Clerical Staff - 07/29/2025 12:52 PM EST ----- Message from Sole Valle PA-C sent at 07/29/2025 12:11 PM EST ----- 6 months clinic follow-up Left Dx mammo and Left breast ultrasound same day as visit Assist: None: Independent; :n/a Prefers 10:30, 11a or 11:30a on Saturday or documented in this encounter Plan of Treatment Upcoming Encounters Date Type Department Care Team (Late st Contact Info) Description 01/31/2026 10:00 AM EDT Appointment [facility] [place] [id number] Sole Valle PA-C [address] [place] [address] [address] [place] [address] 01/31/2026 10:30 AM EDT Appointment [facility] [place] [id number] Sole Valle PA-C [address] [place] [address] [address] [place] [address] 01/31/2026 11:30 AM EDT Appointment [facility] [place] [id number] Sole Valle PA-C [address] [place] [address] [address] [place] [address] documented as of this encounter Visit Diagnoses Not on filedocumented in this encounter
--- OUTSIDE RECORDS SUMMARY | 2025-08-03 06:56 | XMS_ITS | Clinical Summary ---
Author Organization 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 Active metoprolol succinate (TOPROL-XL) 25 mg Oral Tablet Sustained Release 24 hr Take 25 mg by mouth daily. 07/20/2025 Active omeprazole (PRILOSEC) 40 mg Oral Capsule, Delayed Release(E.C.) Take 40 mg by mouth daily. Active WEGOVY 2.4 mg/0.75 mL SubQ Pen Injector Active Encounters Date Type Department Care Team Description 07/29/2025 11:26 AM EST - 07/29/2025 11:59 PM EST Hospital Encounter [facility] [place] [address] Sole Valle PA-C Abnormal mammogram (Primary Dx) Discharge Disposition: Home or Self Care 07/29/2025 Telephone [facility] [place] [address] Reba Babb [place] Appointment Needed 07/26/2025 Telephone [facility] [place] [address] [address], car hop 07/06/2025 1:50 PM EST - 07/06/2025 11:59 PM EST Hospital Encounter [facility] [place] [address] [address] Provider, Unknown Discharge Disposition: Home or Self Care 07/06/2025 1:45 PM EST - 07/06/2025 1:49 PM EST Hospital Encounter [facility] [address] [place] [address] Provider, Unknown Discharge Disposition: Home or Self Care from Last 3 Months Social History Tobacco Use Types Packs/Day Years Used Date Smoking Tobacco: Never Assessed Comments Unknown Sex and Gender Information Value Date Recorded Sex Assigned at Not on file Legal Sex Female 3:56 PM EST Gender Identity Not on file Sexual Orientation Not on file Last Filed Vital Signs Vital Sign Reading [...] Mass Index 28.35 07/29/2025 11:35 AM EST Plan of Treatment Upcoming Encounters Date Type Department Care Team (Late st Contact Info) Description 01/31/2026 10:00 AM EDT Appointment [facility] [place] [address] Sole Valle PA-C [address] [place] [address] DR BEE [address] [place] [id number] 01/31/2026 10:30 AM EDT Appointment [facility] [place] [address] Sole Valle PA-C [address] [place] [address] DR BEE [facility] [place] [address] 01/31/2026 11:30 AM EDT Appointment [facility] [place] [address] Sole Valle PA-C [address] [place] [address] DR [place] [facility] [place] [address] Health Maintenance Due Date Last Done Comments Annual Wellness Exam 1983 Hepatitis B Vaccine (1 of 3 - 19+ 3-dose series) 1999 Cervical Cancer Screening 2001 Pap Smear 2001 HPV/Pap Cotest 2010 Breast Cancer Screening 2020 COVID-19 Vaccine ( season) 2025 07/01/2021, 09/30/2020, 09/02/2020 Cologuard 2025 Colon Cancer Screening 2025 Colonoscopy 2025 FIT 2025 Sigmoidoscopy 2025 Virtual Colonography 2025 DTaP/TDaP/Td (2 - Td or Tdap) 05/18/2034 05/18/2024 Influenza Vaccine Completed 05/06/2025, , 05/25/2023, Additional history exists Meningococcal B Vaccine Aged Out No l onger eligible based on patient's age to complete this topic Pneumococcal Vaccine 0-49 Aged Out No longer eligible based on patient's age to complete this topic Procedures Procedure Name Priority Date/Time Associated Diagnosis Comments MM OUTSIDE FILMS FOR COMPARISON Routine 07/30/2025 1:44 PM EST MM OUTSIDE FILMS FOR COMPARISON Routine 07/30/2025 1:42 PM EST MM OUTSIDE FILMS FOR COMPARISON Routine 07/30/2025 1:42 PM EST MM OUTSIDE FILMS FOR COMPARISON Routine 07/30/2025 1:41 PM EST MM OUTSIDE FILMS FOR COMPARISON Routine 07/27/2025 1:43 PM EST MM OUTSIDE FILMS FOR COMPARISON Routine 07/27/2025 1:42 PM EST from Last 3 Months Results * MM OUTSIDE FILMS FOR COMPARISON (07/30/2025 1:44 PM EST) Only the most recent of6 resultswithin the time period is included. us Unknown Provider IMG MAMMOGRAPHY ORDERABLES Inge l Result PACS from Last 3 Months Insurance [employer] PPO
--- OUTSIDE RECORDS SUMMARY | 2025-08-03 06:56 | XMS_ITS | Data Portability ---
Author Organization Formerly [facility] Address [address] [place] [id number] Assessment Encounter Date Assessment Date Assessment LastModified [...] posted in patient waiting rooms and bathrooms. [email or web address] Not available 06/25/2025 09:24:38 Plan of Treatment Reminders Order Date Submit Date Provider Last Modified By Organization Details Last Modified Time Details Appointments Establish ed Patient 20 2024 08:00A M Francoise Zuluaga APRN Not available Not available Not available ANNUAL [employer]OR [employer] 20 min 2025 08:40A M Ruth Sinclair APRN Not available Not available Not available Lab lipid panel, serum 2024 025 [facility], [address] [place] [address], [address], 11/17/2024 08:58:10 CMP, serum or plasma 2024 025 [facility], [address] [place], [address], 11/17/2024 08:58:10 vitamin D, 25-hydrox y, total, serum 2024 025 [facility], [address] [place] [address], [address], 11/17/2024 08:58:11 cobalamin and folate panel, serum 2024 025 [facility], [address] [place] [address], [address], 11/17/2024 08:58:11 TSH + free T4, serum 2024 025 [facility], [address] [place] [address], [address], 11/17/2024 08:58:09 Referral gastroent erologist referral 2024 025 Mukund Landeros MD, [address], [address], [address], 07/27/2025 16:53:58 cardiolog ist referral - Irregular rhythm on AWE, asymptoma tic; 2024 MAURILIO Diaz MD, [address] [place] [address], [address], 07/27/2025 10:16:25 Procedures None recorded. Surgeries None recorded. Imaging MAMMO, diagnosti c, digital, bilateral - palpable mobile cluster of densities lateral aspect left breast-3: 00 position 2024 025 [facility] Jaeger (Centralized Scheduling), [address], [place], [address], 07/06/2025 15:54:21 US, breast, unilatera l - palpable mobile cluster of densities lateral aspect left breast-3: 00 position 2024 025 [facility] Jaeger (Centralized Scheduling), [address] [place] [address], [place], [address], 07/06/2025 15:54:26 Medication Orders ondansetr on 8 mg disintegr ating tablet [address], [address] [place] [address], [address], 05/06/2025 08:28:14 levothyro xine 125 mcg tablet [address] [facility], [address] [place] [address], [address], 05/06/2025 08:28:15 Wegovy 2.4 mg/0.75 mL subcutane ous pen injector [address] [facility] [address] [facility], [address] [place] [address], [address], 05/06/2025 08:28:14 ondansetr on 8 mg disintegr ating tablet 2024 025 [facility], [address] [place] [address], [address], 02/04/2025 11:08:20 levothyro xine 125 mcg tablet 2024 025 [facility], [address] [place] [address], [address], 02/04/2025 11:03:57 Wegovy 1.7 mg/0.75 mL subcutane ous pen injector 2024 025 [facility], [address] [place] [address], [address], 06/22/2025 14:28:03 omeprazol e 40 mg capsule,d elayed release 2024 025 [facility], [address] [place], [address], 11/16/2024 09:11:21 Wegovy 1 mg/0.5 mL subcutane ous pen injector 2024 025 [facility], [address] [place], [address], 05/06/2025 08:02:17 Medrol (Duc) 4 mg tablets in a dose pack 2024 025 [facility], [address] [facility], [place], [address], 11/16/2024 10:18:04 dexametha sone sodium phosphate 4 mg/mL injection solution 2024 025 [email or web address] Not available 11/16/2024 08:58:26 citalopra m 20 mg tablet 2024 025 [facility], [address] [place] [address], [address], 11/16/2024 09:16:36 Patient TargetsNo targets recorded. Patient Instructions Encounter Date Encounter Id Patient Instructions Last Modified By Organization Details Last Modified Time 10/01/2024 [id number] cough: care instructions Not available 10/01/2024 16:43:49 [...] their choice. Not available 10/01/2024 16:49:26 11/16/2024 [id number] learning about healthy weight Not available 11/16/2024 09:08:06 body mass index: care instructions Not available 11/16/2024 09:08:06 folate deficienc y anemia: care instructions Not available 11/16/2024 09:08:06 Will increase Wegovy as she has only been on 0.25 and 0.5 mg. Still is wanting to eat. Will call with labs. RTC in 3 months or sooner as needed. Not available 11/16/2024 09:18:40 02/04/2025 [id number] nausea and vomiting: care instructions Not available [...] their choice. Not available 02/04/2025 11:12:05 05/06/2025 [id number] body mass index: care instructions Not available 05/06/2025 08:28:14 learning about healthy weight Not available 05/06/2025 08:28:14 RTC in 3 months or sooner as needed. Will plan to check TSH at that appointment. Not available 05/06/2025 08:30:35 06/25/2025 [id number] body mass index: care instructions Not available 06/25/2025 09:33:16 learning about healthy weight [email or web address] Not available 06/25/2025 09:33:16 Encourage Self Breast Exam Encourage Healthy eating/regular physical activity Schedule dx mammogram w/left US Encourage adequate calcium intake/Vitamin D Schedule colonoscopy Encourage routine care with PCP Schedule with cardiology [email or web address] Not available 06/25/2025 09:34:11 Reason for Referral Signal Person Referral for Screening for malignant neoplasm of colon Referring Physician: Ruth Sinclair OPEN DIE INSPECTOR, Encounter Date: 06/25/2025 Product Design Specialist Referral for Ir regular heart beat Irregular rhythm on AWE, asymptomatic; Referring Physician: Ruth Sinclair OPEN DIE INSPECTOR, Encounter Date: 06/25/2025 Results Created Date Observation Date Name Description Value Unit Range Abnormal Flag Note LastModifiedBy Organization Detail LastModifiedTime 11/17/1911/17/2024 TSH+F REE T4 TSH 0.072 uIU/m L 0.450- 4.500 below low normal Not Available [facility] ([facility]) [address] [place], [address], 11/17/2024 08:58:09 11/17/1911/17/2024 TSH+F REE T4 T4,free(dire ct) 2.05 NG/dL 0.82-1 .77 above high normal Not Available [facility] ([facility]) [address] [place], [address], 11/17/2024 08:58:09 11/17/19 25 11/17/2024 COMP. METAB OLIC PANEL (14) glucose 92 mg/dL 70-99 normal Not Available [facility] ([facility]) [address] [place], [address], 11/17/2024 08:58:09 11/17/19 25 11/17/2024 COMP. METAB OLIC PANEL (14) BUN 17 mg/dL 6-24 normal Not Available [facility] ([facility]) [address] [place], [address], 11/17/2024 08:58:09 11/17/19 25 11/17/2024 COMP. METAB OLIC PANEL (14) creatinine 0.82 mg/dL 0.57-1 .00 normal Not Available [facility] ([facility]) [address] [place], [address], 11/17/2024 08:58:09 11/17/19 25 11/17/2024 COMP. METAB OLIC PANEL (14) eGFR 90 mL/mi n/1.7 3 >59 normal Not Available [facility] ([facility]) [address] [place], [address], 11/17/2024 08:58:09 11/17/19 25 11/17/2024 COMP. METAB OLIC PANEL (14) BUN/creatini ne ratio 21 9-23 normal Not Available [facility] ([facility]) [address], [place], [address], 11/17/2024 08:58:09 11/17/19 25 11/17/2024 COMP. METAB OLIC PANEL (14) sodium 141 mmol/ L 134-14 4 normal Not Available [facility] ([facility]) [address] [place], [address], 11/17/2024 08:58:09 11/17/19 25 11/17/2024 COMP. METAB OLIC PANEL (14) potassium 5.3 mmol/ L 3.5-5. 2 above high normal Not Available [facility] ([facility]) [address] [place], [address], 11/17/2024 08:58:09 11/17/19 25 11/17/2024 COMP. METAB OLIC PANEL (14) chloride 105 mmol/ L 96-106 normal Not Available [facility] ([facility]) [address] [place], [address], 11/17/2024 08:58:09 11/17/19 25 11/17/2024 COMP. METAB OLIC PANEL (14) carbon dioxide, total 23 mmol/ L 20-29 normal Not Available [facility] ([facility]) [address] [place], [address], 11/17/2024 08:58:09 11/17/19 25 11/17/2024 COMP. METAB OLIC PANEL (14) calcium 9.4 mg/dL 8.7-10 .2 normal Not Available [facility] ([facility]) [address] [place], [address], 11/17/2024 08:58:09 11/17/19 25 11/17/2024 COMP. METAB OLIC PANEL (14) protein, total 6.8 g/dL 6.0-8. 5 normal Not Available [facility] ([facility]) [address] [place], [address], 11/17/2024 08:58:09 11/17/19 25 11/17/2024 COMP. METAB OLIC PANEL (14) albumin 4.0 g/dL 3.9-4. 9 normal Not Available [facility] ([facility]) [address] [place], [address], 11/17/2024 08:58:09 11/17/19 25 11/17/2024 COMP. METAB OLIC PANEL (14) globulin, total 2.8 g/dL 1.5-4. 5 Not Available [facility] ([facility]) [address] [place], [address], 11/17/2024 08:58:09 11/17/19 25 11/17/2024 COMP. METAB OLIC PANEL (14) bilirubin, total <0.2 mg/dL 0.0-1. 2 Not Available [facility] ([facility]) [address] [place], [address], 11/17/2024 08:58:09 11/17/19 25 11/17/2024 COMP. METAB OLIC PANEL (14) alkaline phosphatase 89 IU/L 44-121 normal Not Available [facility]) [address] [place], [address], 11/17/2024 08:58:09 11/17/19 25 11/17/2024 COMP. METAB OLIC PANEL (14) AST (SGOT) 15 IU/L 0-40 normal Not Available [facility] ([facility]) [address] [place], [address], 11/17/2024 08:58:09 11/17/19 25 11/17/2024 COMP. METAB OLIC PANEL (14) ALT (SGPT) 18 IU/L 0-32 normal Not Available [facility] ([facility]) [address] [place], [address], 11/17/2024 08:58:09 11/17/19 25 11/17/2024 LIPID PANEL cholesterol, total 164 mg/dL 100-19 9 normal Not Available [facility] ([facility]) [address] [place], [address], 11/17/2024 08:58:10 11/17/19 25 11/17/2024 LIPID PANEL triglyceride s 226 mg/dL 0-149 above high normal Not Available [facility] ([facility]) [address] [place], [address], 11/17/2024 08:58:10 11/17/19 25 11/17/2024 LIPID PANEL HDL cholesterol 46 mg/dL >39 normal Not Available [facility]) [address] [place], [address], 11/17/2024 08:58:10 11/17/19 25 11/17/2024 LIPID PANEL VLDL cholesterol nasir 38 mg/dL 5-40 Not Available [facility] ([facility]) [address] [place], [address], 11/17/2024 08:58:10 11/17/19 25 11/17/2024 LIPID PANEL LDL chol calc ([facility]) 80 mg/dL 0-99 Not Available [facility]) [address], [place], [address], 11/17/2024 08:58:10 11/17/19 25 11/17/2024 LIPID PANEL LDL calc comment: CORPORATE ASSOCIATE Not Available [facility] ([facility]) [address], [place], [address], 11/17/2024 08:58:10 11/17/19 25 11/17/2024 VITAM IN B12 AND FOLAT E vitamin B12 524 pg/mL 232-12 45 normal Not Available [facility] ([facility]) [address], [place], [address], 11/17/2024 08:58:11 11/17/19 25 11/17/2024 VITAM IN B12 AND FOLAT E folate (folic acid), serum 15.8 NG/mL >3.0 normal A serum folat e frank ntrat ion of less than 3.1 ng/mL is consi dered to repre sent clini nasir defic iency . Not Available [facility] ([facility]) [address], [place], [address], 11/17/2024 08:58:11 11/17/19 25 11/17/2024 VITAM IN [...] Raza wagner [place]: The Natio nal [facility] Press . 2. Lucia white MF, Celsa ey [place], Kg off-F errar i THOMPSON, et al. Evalu ation , treat ment, and preve ntion of vitam in D defic iency : an Endoc rine Socie ty clini nasir pract ice guide line. JCEM. 2010; 96(7) :1911 -30. Not Available [facility] ([facility]) [address] [place], [address], 11/17/2024 08:58:11 12/01/19 25 12/01/2024 BASIC METAB OLIC PANEL (8) glucose 86 mg/dL 70-99 normal Not Available [facility] ([facility]) [address] [place], [address], 12/01/2024 04:14:21 12/01/19 25 12/01/2024 BASIC METAB OLIC PANEL (8) BUN 16 mg/dL 6-24 normal Not Available [facility] ([facility]) [address] [place], [address], 12/01/2024 04:14:21 12/01/19 25 12/01/2024 BASIC METAB OLIC PANEL (8) creatinine 1.07 mg/dL 0.57-1 .00 above high normal Not Available [facility] ([facility]) [address] [place], [address], 12/01/2024 04:14:21 12/01/19 25 12/01/2024 BASIC METAB OLIC PANEL (8) eGFR 66 mL/mi n/1.7 3 >59 normal Not Available [facility] ([facility]) [address] [place], [address], 12/01/2024 04:14:21 12/01/19 25 12/01/2024 BASIC METAB OLIC PANEL (8) BUN/creatini ne ratio 15 9-23 normal Not Available [facility] ([facility]) [address] [place], [address], 12/01/2024 04:14:21 12/01/19 25 12/01/2024 BASIC METAB OLIC PANEL (8) sodium 139 mmol/ L 134-14 4 normal Not Available [facility] ([facility]) [address] [place], [address], 12/01/2024 04:14:21 12/01/19 25 12/01/2024 BASIC METAB OLIC PANEL (8) potassium 4.7 mmol/ L 3.5-5. 2 normal Not Available [facility] ([facility]) [address] [place], [address], 12/01/2024 04:14:21 12/01/19 25 12/01/2024 BASIC METAB OLIC PANEL (8) chloride 103 mmol/ L 96-106 normal Not Available [facility] ([facility]) [address] [place], [address], 12/01/2024 04:14:21 12/01/19 25 12/01/2024 BASIC METAB OLIC PANEL (8) carbon dioxide, total 23 mmol/ L 20-29 normal Not Available [facility] ([facility]) [address] [place], [address], 12/01/2024 04:14:21 12/01/1912/01/2024 BASIC METAB OLIC PANEL (8) calcium 9.5 mg/dL 8.7-10 .2 normal Not Available [facility] ([facility]) [address] [place], [address], 12/01/2024 04:14:21 02/02/2002/02/2025 TSH+F REE T4 TSH 2.870 uIU/m L 0.450- 4.500 normal Not Available [facility] ([facility]) [address] [place], [address], 02/02/2025 08:23:22 02/02/20 25 02/02/2025 TSH+F REE T4 T4,free(dire ct) 1.53 NG/dL 0.82-1 .77 normal Not Available [facility] ([facility]) [address], [place], [address], 02/02/2025 08:23:22 02/02/20 25 02/02/2025 VITAM IN [...] IOM (Inst itute of Medic ine). 2009. Lisa ry refer ence intak es for calci um and D. Raza wagner [place]: The Natio nal [facility] Press . 2. Lucia white MF, Celsa almanza [place], Kg off-F errar i THOMPSON, et al. Evalu ation , treat ment, and preve ntion of vitam in D defic iency : an Endoc rine Socie ty clini nasir pract ice guide line. JCEM. 2010; 96(7) :1911 -30. Not Available [facility] ([facility]) [address], [place], [address], 02/02/2025 08:23:23 07/06/20 25 07/06/2025 US, jasmyn miner No observ ation record ed. [email or web address] [facility] (Centralized Scheduling) [address] [place] [address] , [place], [address], 07/07/2025 13:17:12 07/06/20 25 07/06/2025 MAMMO , diagn ostic , digit al, bilat eral No observ ation record ed. [email or web address] (Central Scheduling) [address] [facility] [place], [address], 07/07/2025 16:57:24 07/06/2007/06/2025 US, jasmyn miner No observ ation record ed. [email or web address] (Central Scheduling) [address] [facility] [place], [address], 07/07/2025 16:57:25 07/06/2007/06/2025 MAMMO , diagn ostic , digit al, bilat eral No observ ation record ed. [facility] (Centralized Scheduling) [address] [place] [address] [place], [address], 07/07/2025 13:17:28 07/11/2007/09/2025 trans -thor acic echoc ardio gram (TTE) (PROC ) No observ ation record ed. [facility] [address], [place], [address], 07/11/2025 16:10:27 Result Notes None recorded. Problems Name Problem SNOMED Code Status Onset Date Resolution Date Notes Provider Name and Address Organization Details Recorded Time Hypothyroid ism 79232232 Active Mallory Montalvo MD [address], [place], [address], [place] - [facility] 17:11:22 Gastroesoph ageal reflux disease without esophagitis 382114439 Active 2020 Mallory Montalvo MD [address], [place], [address], [place] [facility] 17:42:38 Obstructive sleep apnea syndrome 70802895 Active 2021 Mallory Montalvo MD [address], [place], [address], [place] [facility] 17:42:38 Mixed hyperlipide bruna 360112383 Active 2021 Mallory Montalvo MD [address], [place], [address], [place] [facility] 17:00:17 Body mass index 30+ - obesity 357938738 Active 2022 Francoise Zan , CHANGE CONTROL ANALYST [address], [place], [address], [place] [facility] 09:04:31 Asthma 684396891 Active 2022 Mallory Montalvo MD [address], [place], [address], [place] [facility] 17:32:13 History of total hysterectom y 853659351 Active 2022 Ruth Sinclair, CHANGE CONTROL ANALYST [address], [place], [address], [place] [facility] 3 15:46:38 Elevated blood-press ure reading without diagnosis of hypertensio n 931545586 Active 2022 Mallory Montalvo MD [address], [place], [address], [place] [facility] 17:11:26 Hypertensiv e disorder 44368199 Active 2022 Mallory Montalvo MD [address], [place], [address], [place] [facility] 17:13:11 Acute bronchitis 72692976 Completed 202306/22/2024 Estrellita Osorio null, [place] - [facility] 5 11:47:12 Acute diarrhea 437193541 Completed 202306/22/2024 Estrellita Osorio null, [place] [facility] 4 08:49:06 Cough 68315036 Completed 202306/22/2024 Estrellita Osorio null, [place] [facility] 5 11:47:33 Acute gastroenter itis 67842260 Completed 202306/22/2025 Estrellita Osorio null[place] [facility] 11:47:37 Acute infectious nonbacteria l gastroenter itis 754099887 Completed 202306/22/2025 Estrellita Osorio null, [place] [facility] 11:47:24 External hemorrhoids 93583482 Active 2023 Mallory Montalvo MD [address], [place], [address], [place] [facility] 13:59:51 Folic acid deficiency 539965828 Active 2023 Francoise Zan , CHANGE CONTROL ANALYST [address], [place], [address], [place] [facility] 11:02:55 Vitamin D deficiency 22048944 Active 2023 Francoiseelana Zuluaga , CHANGE CONTROL ANALYST [address], [place], [address], [place] [facility] 09:06:21 Acute maxillary sinusitis 65322584 Completed 202306/22/2025 Estrellita chinchilla, [place] - [facility] 5 11:47:35 Obese 357478642 Active 2023 Francoiseelana Zuluaga , CHANGE CONTROL ANALYST [address], [place], [address], [place] [facility] 10:11:24 Obesity 346247649 Active 2023 Francoiseelana Zuluaga , CHANGE CONTROL ANALYST [address], [place], [address], [place] [facility] 10:11:26 Acute bronchitis 43550884 Completed 202306/22/2025 Estrellita Osorio null, [place] - [facility] 11:47:12 Cough 55915053 Completed 202306/22/2025 Estrellita Osorio null, [place] - [facility] 11:47:33 Anxiety 51220860 Active 2024 Francoise Zuluaga , CHANGE CONTROL ANALYST [address], [place], [address], [place] [facility] 16:47:04 Dyslipidemi a 735385885 Active 2024 Francoise Zuluaga CHANGE CONTROL ANALYST [address], [place], [address], [place] [facility] 5 09:09:59 Hyperkalemi a 83389441 Active 2024 Francoise SKYE Zuluaga [address], [place], [address], [place] [facility] 5 09:42:55 Nausea 855671330 Active 2024 Francoiseelana Zuluaga APRN [address], [place], [address], [place] [facility] 08:13:42 Overweight in adulthood with body mass index of 25 or more but less than 30 284829749 Active 2024 Ruth Sinclair APRN [address], [place], [address], [place] [facility] 5 09:25:22 Breast lump 63306380 Active 2024 Ruth Sinclair APRN [address], [place], [address], [place] [facility] 09:26:24 Irregular heart beat 296591811 Active 2024 Ruth Sinclair APRN [address], [place], [address], [place] [facility] 09:30:41 Mild mitral valve regurgitati on 283033889 Active 2024 Francoiseelana Zuluaga APRN [address], [place], [address], [place] [facility] 5 16:09:37 Problem Notes None recorded. Procedures Surgical History Date Name Laterality Status Provider Name and Address Organization Details Recorded Time 025 Medication Reconcilliation completed Makenzie Foster [place] - [facility] 10/01/2024 07:45:53 025 Date of Last Mammogram completed Ruth Sinclair APRN [address], [place], [address], [place] - [facility] 08/24/2024 10:05:24 024 anal [...] Dilation and Curettage, sharp completed Ruth Sinclair, CHANGE CONTROL ANALYST [address], [place], [address], [place] [facility] 06/17/2023 15:46:20 Diagnostic Laparoscopy completed Jayna Bhakta [place] - [facility] 08/01/2016 12:18:04 Thyroid Surgery completed Ruth grullon, CHANGE CONTROL ANALYST [address], [place], [address], [place] [facility] 06/17/2023 15:45:52 Tubal Ligation [...] e 50 mcg/actua tion nasal spray,[employer] [place] 1 spray every day by intranas al [...] BY MOUTH EVERY 12 HOURS WITH FOOD 02/05 /2024 completed Not Available Not Available [...] Updated DateTime 5 156.85 cm 33.9 kg/m2 31092 g 97.8 [degF] 18 /min 0 72 /min 98 % 132/86 mm[Hg] Makenzie Foster [place] - [facility] 5 16:37:45 Date Recorded Body height Body mass index (BMI) Body weight Body temperature Heart rate Oxygen saturation Respiratory rate Systolic And Diastolic Provider Name and Address Organization Details Last Updated DateTime 5 156.85 cm 34.7 kg/m2 50821.0 7 g 98 [degF] 67 /min 98 % 17 /min 118/72 mm[Hg] Kinjal Caraballo [place] - [facility] 08:58:06 Date Recorded Body height Body mass index (BMI) Body weight Heart rate Oxygen saturation Respiratory rate Body temperature Pain severity - 0-10 verbal numeric rating [Score] - Reported Systolic And Diastolic Provider Name and Address Organization Details Last Updated DateTime 5 156.85 cm 33 kg/m2 04796.4 3 g 76 /min 99 % 18 /min 98 [degF] 0 124/78 mm[Hg] Douglasroxann Cristian [place] - [facility] 5 10:43:44 Date Recorded Body height Body mass index (BMI) Body weight Body temperature Pain severity - 0-10 verbal numeric rating [Score] - Reported Respiratory rate Heart rate Oxygen saturation Systolic And Diastolic Provider Name and Address Organization Details Last Updated DateTime 5 156.85 cm 29.7 kg/m2 63657.3 7 g 97.8 [degF] 0 18 /min 81 /min 98 % 120/68 mm[Hg] Makenzie Foster [place] - [facility] 08:04:14 Date Recorded Body height Body mass index (BMI) Body weight Pain severity - 0-10 verbal numeric rating [Score] - Reported Systolic And Diastolic Provider Name and Address Organization Details Last Updated DateTime 06/25/2025 156.85 cm 29.2 kg/m2 80724.31 g 0 102/60 mm[Hg] Estrellita Conklinann [place] - [facility] 5 08:37:43 Social History Question Answer Notes LastModified by Organization Details LastModified Time Tobacco Smoking Status Never Smoker Jayna chinchilla [place] - [facility] 08/01/2016 12:16:25 Able To Swim? Yes [email or web address] Information not available 06/17/2023 Do You Have An Advance Directive? No Information not available 08/01/2016 How Many Years Have You Consumed Alcohol? 19 [email or web address] Information not available 06/17/2023 Are You Blind Or Do You Have Difficulty Seeing? No [email or web address] Information not available 06/17/2023 Is Blood Transfusion Acceptable In An Emergency? Yes [email or web address] Information not available 04/09/2022 What Is Your Level Of Caffeine Consumption? Moderate [email or web address] Information not available 06/17/2023 How Much Tobacco Do You Chew? None Information not available 05/14/2019 In The 14 Days Before Symptom Onset, Have You Had Close Contact With A Laboratory-conf irmed COVID-19 While That Case Was Ill? No [email or web address] Information not available 06/17/2023 In The 14 Days Before Symptom Onset, Have You Had Close Contact With A Person Who Is Under Investigation For COVID-19 While That Person Was Ill? No [email or web address] Information not available 06/17/2023 Have You Been To An Area Known To Be High Risk For COVID-19? No [email or web address] Information not available 06/17/2023 Are You Deaf Or Do You Have Serious Difficulty Hearing? No Information not available 08/01/2016 What Type Of Diet Are You Following? REGULAR Information not available 08/01/2016 Which Illicit Or Recreational Drugs Have You Used? Denies Information not available 05/14/2019 Have You Processed Blood Or Body Fluids From An Ebola Virus Disease Patient Without Appropriate PPE? No Information not available 06/17/2023 Do You Reside In Or Have You Traveled To An Area Where Ebola Virus Transmission Is Active? No [email or web address] Information not available 06/17/2023 What Is The Highest Grade Or Level Of School You Have Completed Or The Highest Degree You Have Received? [id number] Information not available 06/22/2024 Swimming/diving Yes [email or web address] Informati on not available 06/17/2023 Have There Been Any Changes To Your Family Or Social Situation? No [email or web address] Information not available 06/17/2023 What Is The Fluoride Status Of Your Home? Unknown [email or web address] Information not available 06/17/2023 Hard Of Hearing Or Deaf In One Or Both Ears? No [email or web address] Information not available 06/17/2023 Have You Recently Or Are You Planning To Travel To An Area With Zika Virus? No [email or web address] Information not available 06/17/2023 How Many Years Have You Used Illicit Or Recreational Drugs? 0 [email or web address] Information not available 06/17/2023 Legally Blind In One Or Both Eyes? No [email or web address] Information not available 06/17/2023 Live Alone Or With Others? With Others [email or web address] Information not available 06/17/2023 Do You Have A Medical Power Of Blender? No [email or web address] Information not available 06/17/2023 What Was The Date Of Your Most Recent Tobacco Screening? 06/25/2025 [email or web address] Information not available 06/25/2025 How Many Children Do You Have? 1 Information not available 05/14/2019 Do You Use Protection During Sex? No Information not available 06/17/2023 Do You Use Protection Against STDs? No [email or web address] Information not available 04/09/2022 What Is Your Relationship Status? [email or web address] Information not available 06/22/2024 Do You Use Your Seat Belt Or Car Seat Routinely? Yes [email or web address] Information not available 06/17/2023 Seat Belts Used Routinely Yes [email or web address] Information not available 06/17/2023 Are You Sexually Active? Yes Information not available 06/25/2025 Smoke Alarm In Home Yes [email or web address] Information not available 06/17/2023 Do You Have Smoke And Carbon Monoxide Detectors In Your Home? Yes [email or web address] Information not available 04/09/2022 Are You Passively Exposed To Smoke? No Information not available 05/14/2019 How Much Tobacco Do You Smoke? No [email or web address] Information not available 06/17/2023 General Stress Level Low [email or web address] Information not available 06/17/2023 Do You Use Sunscreen Routinely? No [email or web address] Information not available 06/17/2023 Has Tobacco Cessation Counseling Been Provided? Yes [email or web address] Information not available 06/25/2025 On What Date Was Tobacco Cessation Counseling Provided? 06/25/2025 [email or web address] Information not available 06/25/2025 Do You Have [...] Because I Am Here For Something Else [email or web address] Information not available 06/17/2023 Do You Have Any Future Plans To Get ? No, I Don't Want To Become [email or web address] Information not available 06/17/2023 Sex: Female Functional [...] 05/14/2019 Do you have transportation difficulties? No Information not available 06/17/2023 Are you able to care for yourself independently? Yes Information not available 08/01/2016 Do you have difficulty dressing, bathing, grooming, or toileting? No [email or web address] Information not available 06/17/2023 Do you or have you ever used e-cigarettes or vape? Never used electronic cigarettes Information not available 05/14/2019 What is your exercise level? Occasional [email or web address] Information not available 06/17/2023 Do you use any illicit or recreational drugs? No [email or web address] Information not available 06/17/2023 Do you or have you ever used any other forms of tobacco or nicotine? No [email or web address] Information not available 06/17/2023 What is your level of alcohol consumption? Occasional [email or web address] Information not available 04/09/2022 What is your status? Not [email or web address] Information no t available 06/17/2023 Are you able to walk independently without assistance or assistive devices? YESWOREST [email or web address] Information not available 06/17/2023 Do you have difficulty doing errands alone? No [email or web address] Information not available 06/17/2023 What is your occupation? [employer] [email or web address] Information not available 06/17/2023 Mental Status Question Answer Note LastModified by Organizat ion Details LastModified Time Do you feel stressed (tense, restless, nervous, or anxious, or unable to sleep at night)? [id number] [email or web address] Information not available 06/22/2024 Do you have difficulty concentrating, remembering or making decisions? No [email or web address] Information no t available 06/17/2023 Family History [...] 08:23:25 Paternal Grandfather Malignant neoplasm of lung [email or web address] Not available 2022 15:22:24 Mother Asthma [email or web address] Not available 06/17/2023 15:09:14 Mother Anxiety disorder [email or web address] Not available 2022 15:22:24 Mother Depressive disorder [email or web address] Not available 2022 15:22:24 Mother Obesity [email or web address] Not available 06/17/2023 15:09:14 Mother Substance abuse [email or web address] Not available 2022 15:09:14 Son Asthma [email or web address] Not available 06/17/2023 15:09:14 Unspecified Relation Disorder of thyroid gland [email or web address] Not available 2024 08:23:25 Paternal Aunt Malignant neoplasm of transverse colon API-251 Not available 2024 08:23:25 Maternal Aunt Malignant neoplasm of breast [email or web address] Not available 2023 08:42:35 Sister Disorder of thyroid gland [email or web address] Not available 2023 08:42:35 Father Polyp of colon benign API-251 Not available 2024 08:23:25 Medical History Condition Response Pancreatitis N Coronary Artery Disease N Other N Gout N Atrial Fibrillation N congenital heart disease N Blood Diseases N Kidney Stones N Hyperthyroidism N Rheumatoid arthritis N Blood [...] N Restless Leg Syndrome N Arthritis N Infertility N Polyps N Carpal Tunnel N Mental Disorder N Acid Reflux (GERD) Y Cancer N Stroke N Varicosities N Tendonitis N Crohn's Disease N Hypercholesterolemia Y Skin Cancer N Fibromyalgia N Headaches N Anal Fissure N Irritable Bowel Syndrome [...] colitis N Cerebrovascular Disease N Depression N Guillain-Spencer N Sleep Apnea Y Aneurysm N Bronchitis [...] quadrivalent, preservative 1 completed Maritza Larkin null, [place] - [facility] 05/10/2021 17:42:04 influenza, unspecified formulation 5 completed Not Available [facility]/26/2023 10:48:58 Tdap 4 completed Francoise Zuluaga, CHANGE CONTROL ANALYST [address], [place], [address], [place] - [facility] 05/18/2024 10:49:30 Influenza, split virus, trivalent, PF 4 completed Charissa Baca null, [facility] 06/29/2024 08:52:46 Influenza, split virus, trivalent, PF 5 completed Francoise Zuluaga, CHANGE CONTROL ANALYST [address], [place], [address], [place] - [facility] 05/06/2025 08:28:15 COVID-19, mRNA, LNP-S, PF, 100 mcg/0.5mL dose or 50 mcg/0.25mL dose 1 completed Estrellita Osorio null, [place] - [facility] 06/17/2023 15:09:55 COVID-19, mRNA, LNP-S, PF, 100 mcg/0.5mL dose or 50 mcg/0.25mL dose 1 completed Estrellita Osorio null, [place] - [facility] 06/17/2023 15:09:55 COVID-19, mRNA, LNP-S, PF, 30 mcg/0.3 mL dose 1 completed Estrellita Osorio null, [place] - [facility] 06/17/2023 15:09:55 Hep A, adult 9 completed Estrellita Osorio null, [place] - [facility] 06/17/2023 15:09:55 Hep A, adult 8 completed Estrellita Osorio null, [place] - [facility] 06/17/2023 15:09:55 Influenza, split virus, trivalent, preservative 3 completed Estrellita chinchilla, [place] - [facility] 07/18/2023 09:31:26 Influenza, split virus, trivalent, PF 2 completed Estrellita chinchilla, [place] - [facility] 07/18/2023 09:31:26 Influenza, split virus, quadrivalent, PF 3 completed Estrellita chinchilla, [place] [facility] 07/18/2023 09:31:26 Past Encounters Encounter ID Performer Location Encounter Start Date Encounter Closed Date Diagnosis/Indication Diagnosis SNOMED-CT Code Diagnosis ICD10 Code Diagnosis IMO Codes Diagnosis Note [id number] Mlalory Montalvo MD [address] [place] [address] 08/01/2016 14:45:35 08/01/2016 16:21:46 Acute bacterial sinusitis 67662091 J01.90 [id number] Mallory Montalvo MD [address] [place] [address] 12/21/2016 13:42:20 12/21/2016 14:08:51 Herpes zoster 1476501 B02.9 [id number] Mallory Montalvo MD [address] [place] [address] 01/28/2017 09:11:14 01/28/2017 09:50:27 Acute bacterial sinusitis 14127819 J01.90 [id number] Maddie Malik APRN [address] [place] [address] 04/09/2017 16:10:08 04/09/2017 17:08:35 Body mass index 30+ - obesity 755148009 Z68.32 Acute folliculitis 90212 7007 L73.9 Seasonal a llergic rhinitis 992869927 J30.2 Tuberculos is screening 536302426 Z11.1 General ex amination of patient 741904492 Z00.01 [id number] Ambrocio Parra APRN [address] [place] [address] 01/14/2018 13:18:53 01/14/2018 13:40:45 Dysuria 79694242 R30.0 Acute urin sean tract infection 029537302 N39.0 Hypothyroidism 71268142 E03.9 [id number] Jeremy Parra MD [address] [place] [address] 07/28/2018 14:38:42 07/28/2018 15:38:42 Acute bronchitis with bronchospasm 16498167 J20.9 [id number] Mallory Montalvo MD [address] [place] [address] 08/25/2018 16:26:01 08/25/2018 17:48:15 Body mass index 30+ - obesity 941130092 Z68.34 Hypothyroidism 66426893 E03.9 Vitamin D deficiency 347 64184 E55.9 Weight gain 1052418 R63. 5 [id number] Mallory Montalvo MD [address] [place] [address] 11/21/2018 09:23:42 11/21/2018 10:39:22 Hypothyroidism 24001790 E03.9 Mixed hyperlipidemia 267 671388 E78.2 Vitamin D deficiency 347 60344 E55.9 Acute bact erial sinusitis 19084798 J01.90 [id number] Cameron Nolen MD [address] [place] [address] 05/14/2019 12:28:43 05/14/2019 13:38:16 Hypothyroidism 22055069 E03.9 Hyperlipidemia 58060944 E78.5 Acute maxi llary sinusitis 65468268 J01.00 Mixed hyperlipidemia 267 281614 E78.2 Thyroid nodule 444547979 E04.1 Body mass index 30+ - obesity 646561103 Z68.33 [id number] Mallory Montalvo MD [address] [place] [address] 07/08/2019 13:32:31 07/08/2019 14:23:39 Acute bacterial sinusitis 40668579 J01.90 Acute bron chitis with bronchospasm 92254015 J20.9 [id number] Mallory Montalvo MD [address] [place] [address] 09/02/2019 10:25:46 09/02/2019 11:15:57 Pre-surgery evaluation 929578165 Z01.818 Thyroid nodule 230813281 E04.1 [id number] Cameron Nolen MD [address] [place] [address] 04/22/2020 10:18:45 04/22/2020 10:55:33 Dysuria 39725859 R30.9 Acute urin sean tract infection 247953840 N39.0 Body mass index 30+ - obesity 614233830 Z68.36 [id number] Mallory Montalvo MD [address] [place] [address] 06/06/2020 11:13:33 06/06/2020 12:09:37 Viral screening 405770629 Z11.59 Epigastric pain 02521103 R10.13 Gastroesop hageal reflux disease without esophagitis 521322162 K21.9 [id number] Mallory Montalvo MD [address] [place] [address] 08/22/2020 18:14:46 08/22/2020 19:02:50 Gastroesophageal reflux disease without esophagitis 973270543 K21.9 [id number] Mallory Montalvo MD [address] [place] [address] 04/11/2021 15:50:42 04/11/2021 16:50:31 Hypothyroidism 69393766 E03.9 Vitamin D deficiency 347 58324 E55.9 [id number] Mallory Montalvo MD [address] [place] [address] 04/26/2021 08:44:44 04/26/2021 09:40:59 Cough 11686381 R05 Viral screening 65268877 4 Z11.59 Acute bact erial sinusitis 94520021 J01.90 [id number] Mallory Montalvo MD [address] [place] [address] 05/10/2021 16:51:25 05/10/2021 17:39:02 Gastroesophageal reflux disease without esophagitis 363790616 K21.9 Administra tion of influenza vaccine 49360104 Z23 Obstructiv e sleep apnea syndrome 19051528 G47.33 [id number] Mallory Montalvo MD [address] [place] [address] 08/16/2021 17:22:06 08/16/2021 18:16:24 Obstructive sleep apnea syndrome 42046309 G47.33 [id number] Mallory Montalvo MD [address] [place] [address] 10/10/2021 13:46:00 10/10/2021 14:20:01 Acute bronchitis with bronchospasm 00763273 J20.9 Hypothyroidism 32269622 E03.9 Gastroesop hageal reflux disease without esophagitis 226546219 K21.9 Obstructiv e sleep apnea syndrome 57887572 G47.33 [id number] Michelle SKYE Daniel OPEN DIE INSPECTOR [address] [place] [address] [place] [address] 04/09/2022 15:24:18 04/09/2022 16:20:10 Routine gynecologic examination done 2973020871 9101 Z01.419 Examinatio n of blood pressure 999534702 Z01.30 BP goal < 140/90 Depression screening 171 655497 Z13.31 Diet education 28114566 Z71.3 6008-1755 calorie diet recommende d with an emphasis on reducing sugar and refined carbohydra gabriela, avoiding highly processed foods and decreasing saturated fats. She declines dietary consult. Counseling 344381945 Z71 .82 Exercise counsellin g. Patient encouraged to exercise 30 minutes 5 days a week. Hypothyroidism 34156562 E03.9 Managed per PCP Body mass index 30+ - obesity 388842638 Z68.36 Screening mammography 24 773723 Z12.31 History of total hysterectomy 689767654 Z90.710 Gastroesop hageal reflux disease without esophagitis 756361405 K21.9 Managed per PCP [id number] Mallory Montalvo MD [address] [place] [address] 04/10/2022 16:47:59 04/10/2022 18:02:45 Hypothyroidism 63295619 E03.9 Gastroesop hageal reflux disease without esophagitis 403917869 K21.9 Body mass index 30+ - obesity 527700003 Z68.36 Obesity 827960564 E66.3 Vitamin D deficiency 347 01729 E55.9 Mixed hyperlipidemia 267 829968 E78.2 [id number] Mallory Montalvo MD [address] [place] [address] 08/14/2022 16:39:53 08/14/2022 17:20:44 Right side sciatica 5242711400 76653 M54.31 Body mass index 30+ - obesity 989182278 Z68.37 [id number] Mallory Montalvo MD [address] [place] [address] 10/02/2022 16:58:12 10/02/2022 17:36:04 Acute bacterial sinusitis 83958539 J01.90 Blood gluc ose outside reference range 893568720 R73.09 Body mass index 30+ - obesity 686877567 Z68.38 [id number] Mallory Montalvo MD [address] [place] [address] 10/31/2022 16:44:54 10/31/2022 17:38:26 Hypothyroidism 03678997 E03.9 Gastroesop hageal reflux disease without esophagitis 856156828 K21.9 Obstructiv e sleep apnea syndrome 29152303 G47.33 Asthma 719391671 J45.90 [id number] Mallory Montalvo MD [address] [place] [address] 05/07/2023 16:40:00 05/07/2023 17:23:46 Hypothyroidism 42246878 E03.9 Mixed hyperlipidemia 267 987056 E78.2 Fatigue 06042398 R53.83 Vitamin D deficiency 347 61247 E55.9 [id number] Ruth Sinclair APRN [facility] [address] [place] [address] [place] [address] 06/17/2023 15:05:39 06/17/2023 15:48:04 Routine gynecologic examination done 8945698249 9101 Z01.419 Depression screening 171 546499 Z13.31 Hypertensi on screening 927685891 Z13.6 Diet education 58982231 Z71.3 Encourage healthy eating/dec reased fats, sugars, fried foods Screening for malignant neoplasm of breast 479557601 Z12.31 Counseling 988141669 Z71 .82 Encouraged regular exercise 30-40min/d ay 4-5 days/wk Examinatio n of blood pressure 202687819 Z01.31 Body mass index 30+ - obesity 126885252 Z68.35 Obesity 375751734 E66.9 History of total hysterectomy 608837035 Z90.710 Elevated blood-pressure reading without diagnosis of hypertension 500667778 R03.0 [id number] Mallory Montalvo MD [address] [place] [address] 06/24/2023 16:48:24 06/24/2023 17:21:49 Hypertensive disorder 84484813 I10 [id number] Deborah Calix [address] [place] [address] 07/18/2023 09:14:05 07/18/2023 10:00:29 Sore throat 367599189 J02.9 Nasal congestion 9593813 0 R09.81 Influenza caused by Influenza A virus 801532469 J09.X2 Acute sinusitis 80122900 J01.90 [id number] Kylah Cano APRN [address] [place] [address] 08/15/2023 15:50:30 08/15/2023 16:13:44 Dysuria 21362197 R30.0 Acute urin sean tract infection 394259976 N39.0 Increased frequency of urination 934401649 R35.0 Body mass index 30+ - obesity 167060495 Z68.36 Obesity 532418930 E66.9 [id number] JAIRO [facility] [address] [place] [address] 09/12/2023 10:55:37 09/12/2023 11:58:03 [id number] JAIRO Terry [facility]esica [facility] [address] [place] [address] 09/23/2023 15:41:39 09/23/2023 17:00:47 [id number] Mallory Montalvo MD [address] [place] [address] 09/16/2023 09:30:38 09/16/2023 10:50:43 Cough 81376745 R05.9 COVID-19 661518405 U07.1 Hypothyroidism 33159142 E03.9 [id number] JAIRO Terry [facility]sab [facility] [address] [place] [address] 10/07/2023 08:08:28 10/07/2023 09:04:37 [id number] Kevin Rowell APRN [address] [place] [address] 09/26/2023 10:48:36 09/26/2023 11:29:57 Body mass index 30+ - obesity 557834927 Z68.36 Obesity 650454404 E66.9 Acute bronchitis 5803748 2 J20.9 Acute Bronchitis - Patient presents [...] and rule out any secondary infections . [id number] Lubna Braxton MD [address] [place] [address] 10/17/2023 13:06:01 10/17/2023 13:58:51 Acute diarrhea 835832316 R19.7 Called [facility] positive for astrovirus . Symptoms consistent .Will give lomotil to help with diarrhea. Labs reviewed. Not orthostati c in office today Cough 50155607 R05.9 Has had persistent dry cough since COVID, Explained this may last up to 12 weeks Acute infe ctious nonbacterial gastroenteritis 510725069 A09 Due to astrovirus , may patient aware this can be contagious [id number] JAIRO [facility] [address] [place] [address] 10/17/2023 14:50:56 10/17/2023 16:25:38 [id number] JAIRO [facility] [address] [place] [address] 10/31/2023 07:55:16 10/31/2023 09:11:52 [id number] Mallory Montalvo MD [address] [place] [address] 10/23/2023 13:03:54 10/23/2023 14:34:00 Mild dehydration 9370713349 108 E86.0 External hemorrhoids 239 12409 K64.4 Blood in urine 57671621 R31.9 [id number] JAIRO Terry [facility] [address] [place] [address] 11/14/2023 07:59:55 11/14/2023 09:08:50 [id number] JAIRO Terry [facility] [address] [place] [address] 11/28/2023 07:51:08 11/28/2023 09:07:49 [id number] JAIRO Terry [facility] [address] [place] [address] 12/12/2023 13:44:28 12/12/2023 15:07:23 [id number] Cameron Nolen MD [address] [place] [address] 12/05/2023 16:30:44 12/05/2023 17:13:48 Gastroesophageal reflux disease without esophagitis 058242411 K21.9 Hypothyroidism 78313646 E03.9 Mixed hyperlipidemia 267 516978 E78.2 Obstructiv e sleep apnea syndrome 83222515 G47.33 Asthma 174616982 J45.90 9 Body mass index 30+ - obesity 715644907 Z68.36 Hypertensive disorder 38 590844 I10 Acute bronchitis 6301382 2 J20.9 [id number] JAIRO [facility]syesica [facility] [address] [place] [address] 12/26/2023 09:03:17 12/26/2023 10:06:43 [id number] JAIRO Terry [facility] [address] [place] [address] 01/07/2024 14:56:21 01/07/2024 16:10:16 [id number] JAIRO Terry [facility] [address] [place] [place] [address] 01/27/2024 08:01:48 01/27/2024 09:16:10 [id number] JAIRO Terry [facility] [address] [place] [address] 02/10/2024 07:53:55 02/10/2024 09:36:15 [id number] JAIRO Terry [facility] [address] [place] [address] 02/24/2024 07:58:01 02/24/2024 09:12:56 [id number] JAIRO Terry [facility] [address] [place] [address] 03/05/2024 15:59:40 03/05/2024 16:57:41 [id number] JAIRO Terry [facility] [address] [facility] [place] [facility] [place] [address] 03/19/2024 07:59:40 03/19/2024 09:44:04 [id number] JAIRO Terry [facility]ica [facility] [address] [facility] [place] [place] [address] 04/02/2024 08:44:37 04/02/2024 10:11:04 [id number] SKYE Morfin [facility] [address] [facility] [place] [place] [address] 05/18/2024 08:44:03 05/18/2024 09:23:02 Hypothyroidism 14016378 E03.9 Influenza vaccine needed 3848303717 106 Z23 Administra tion of tetanus vaccine 334401735 Z23 [id number] SKYE Art OPEN DIE INSPECTOR [address] [facility] [place] [address] 06/22/2024 08:37:44 06/22/2024 09:39:33 Routine gynecologic examination done 6319481963 9101 Z01.419 Depression screening 171 838192 Z13.31 PHQ-9 completed today. Diet education 54173139 Z71.3 Encourage healthy eating/dec reased fats, sugars, fried foods Counseling 367576174 Z71 .82 Exercise counsellin g. Patient encouraged to exercise 30 minutes 5 days a week. Examinatio n of blood pressure 724490000 Z01.30 Screening for malignant neoplasm of breast 026323311 Z12.31 Body mass index 30+ - obesity 697012721 Z68.34 Obesity 851557765 E66.9 Venereal d isease screening 076792804 Z11.3 History of total hysterectomy 613880922 Z90.710 Hypertensive disorder 38 558533 I10 [id number] SKYE Morfin [facility] [address] [place] [address] 06/29/2024 09:53:12 06/29/2024 10:17:58 Acute maxillary sinusitis 43860116 J01.00 Obese 949331739 E66.9 Body mass index 30+ - obesity 749962053 Z68.34 Obesity 678655482 E66.9 Vitamin D deficiency 347 12438 E55.9 on replacemen t. Folic acid deficiency 19 3677479 E53.8 on replacemen t. [id number] [facility] [address] [place] [address] 06/30/2024 08:47:49 06/30/2024 11:52:59 [id number] [facility] [employer] [facility] [address] [place] [address] 07/21/2024 10:51:24 07/21/2024 12:23:56 [id number] Francoise [facility]uluaga [facility]N [facility] [address] [place] [address] 07/27/2024 08:22:06 07/27/2024 08:44:10 Body mass index 30+ - obesity 523116950 Z68.34 BMI 34.7. Will increase to 0.5 mg/weekly. Folic acid deficiency 19 1354903 E53.8 on replacemen t. due for labs today. Vitamin D deficiency 347 30840 E55.9 on replacemen t. due for labs today. Gastroesop hageal reflux disease without esophagitis 194270787 K21.9 controlled . [id number] SKYE Morfinyesica [place] [address] [place] [address] 08/10/2024 08:31:35 08/10/2024 08:50:35 Acute bronchitis 13368010 J20.9 [id number] Francoise [facility]uluaga [facility]N [facility] [address] [place] [address] 08/27/2024 08:34:14 08/27/2024 08:53:10 Body mass index 30+ - obesity 221470234 Z68.34 BMI 34.1. Weight down 3 pounds. Will increase to 0.5 mg/weekly. Cough 20965781 R05.9 [id number] Trevor Dexter LCSW [facility] [address] [place] [address] 09/03/2024 07:58:35 09/03/2024 10:36:04 [id number] SKYE Morfin [place] [address] [place] [address] 10/01/2024 16:33:13 10/01/2024 16:49:13 Cough 13288121 R05.9 s/p recent influenza. Anxiety 45180387 F41.9 [id number] Trevor Dexter LCSW [facility] [address] [place] [address] 10/01/2024 08:00:05 10/01/2024 09:01:29 [id number] Trevor Dexter LCSW [facility] [address] [place] [address] 10/27/2024 07:57:05 10/27/2024 08:59:37 [id number] SKYE Morf[place]esica [place] [address] [place] [address] 11/16/2024 08:52:12 11/16/2024 09:31:06 Hypothyroidism 65203416 E03.9 on replacemen t. Will check labs. Body mass index 30+ - obesity 710595741 E66.9 9421460 BMI 34.7. Weight up 4 pounds. Will increase to 1.0 mg/weekly. Obesity 123034945 E66.9 Vitamin D deficiency 347 05045 E55.9 37033 currently off replacemen t as Vit D had improved. Will recheck. Folic acid deficiency 19 5162430 E53.8 on replacemen t. due for labs today. Dyslipidemia 839618685 E 78.5 867522 Last ldl 102. Gastroesop hageal reflux disease without esophagitis 803112413 K21.9 controlled on agent. [id number] Trevor Dexter LCSW [facility] [address] [place] [address] 12/31/2024 07:56:35 12/31/2024 09:12:34 [id number] Francoise [facility]aga [facility]N [facility] [address] [place] [address] 02/04/2025 10:31:10 02/04/2025 11:09:36 Body mass index 30+ - obesity 499519713 E66.9 8049320 BMI 33 Hypothyroidism 86442855 E03.9 Is hyperthyro id, will need to decrease synthroid. Gastroesop hageal reflux disease without esophagitis 510156833 K21.9 Controlled on agent.Unde rstands risk of correction PPI. Nausea [id number] R11.0 89473 has had with increase of GLP-1 increases. Will give zofran that she may have on hand. [id number] Francoise Zuluaga APRN [facility] [address] [place] [address] 05/06/2025 07:55:47 05/06/2025 08:25:38 Body mass index 30+ - obesity 317759088 E66.9 9086782 BMI 29.7Doing well on Wegovy.Ranjan ght is down 27 pounds since initiating . Overweight in adulthood with body mass index of 25 or more but less than 30 854317127 E66.3 Z68.29 [id number] Nausea 253973398 R11.0 Repeated prescription 18 8189869 Z76.0 158572 Influenza vaccine needed 1780180719 106 Z23 1849052 SKYE Art OPEN DIE INSPECTOR 7 [facility] [place] [address] 06/25/2025 08:23:22 06/25/2025 09:23:29 Routine gynecologic examination done [id number] 9101 Z01.419 Depression screening 171 595448 Z13.31 PHQ-9 completed today. Diet education 75983685 Z71.3 Encourage healthy eating/avalos it unhealthy fats, sugars, fried foods Counseling 922997677 Z71 .82 Encouraged regular exercise 30-40min/d ay 4-5 days/wk Examinatio n of blood pressure 999147993 Z01.30 History of total hysterectomy 894009014 Z90.710 w/ovarian conservati on Hypertensive disorder 38 335072 I10 Overweight in adulthood with body mass index of 25 or more but less than 30 145096052 E66.3 Z68.29 4533374779 Screening for malignant neoplasm of colon 173108287 Z12.11 972570 Breast lump 83330449 N63 .25 9651275586 Irregular heart beat 361 307611 I49.9 0535018 Health Concerns Section Related Observation LastModified by Organization Detai ls LastModified Time None Recorded Concern Status LastModified by Organization Details LastModified Time None Recorded Advance Directives Directive N: Payers Insurance Date Sequence Insurance Name Policy Number Policy Franco Covered Member ID Franco Member ID Guarantor Name 06/29/2025 1 [place] [id number] Tiffany Ireland [id number] Tiffany Ireland 03/19/2024 1 [place] [id number] Tiffany Ireland [id number] Tiffany Ireland 06/22/2024 1 [place] [id number] Raulito Ireland II [id number] Tiffany Ireland Notes Date Note Type Note Provider Name and Address Organization Details Recorded Time 10/01/2024 text/html Emergency Depart ment Follow-Up RecordReported by PatientEmergency Room Follow-Up RecordFor discharge information, patient reportsname of hospital/urgent care patient was seen: ([facility]),patient presented to hospital/urgent care on or around: [...] the best secondary to the cough. Francoise Zan, CHANGE CONTROL ANALYST [address], [place], [address], [facility] 10/01/2024 16:50:36 11/16/2024 text/html The [...] 2 weeks. She is doing well. Francoise Zuluaga APRN [address], [place], [address], [facility] 11/16/2024 09:19:09 02/04/2025 text/html ROS as noted in the HPI Tiffany is here for weight management follow up. She is on Wegovy. 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 Her last weight was 177.6 and BMI 32.48. Her goal was 130. Her Wegovy was increased to 1 mg in November. Did have some nausea with that increase but improved. Document reviewed. She would like to increase the dose if possible. No chest pain or soa.Bowels are moving well.Request zofran with next dose increase. Francoise Zuluaga APRN [address], [place], [address], [facility] 02/04/2025 11:14:22 05/06/2025 text/html ROS as noted in the HPI Patient is here for follow up on weight loss. She wants to discuss increasing it.Portion control is better.Goal weight is around 130. Did have nausea/vomiting last week. This is better, but she'd like a new prescription of zofran. Francoise Zuluaga APRN [address], [place], [address], [facility] 05/06/2025 08:30:49 06/25/2025 text/html Annual [...] has lost approx 50# with Wegovy! Ruth Yahir, CHANGE CONTROL ANALYST [address], [place], [address], [place] [facility] 06/25/2025 09:41:56 OBGyn Episode Ob Episode Information Episode Created Date Number of Fetuses Patient Bloodtype Patient rh Status Prepregnancy Weight lbs Domestic Partner Domestic Partner Phone Father Name Passenger Attendant Status 05/07/20 23 1 CLOSED Fetus Data [...] Domestic Partner Domestic Partner Phone Father Name Passenger Attendant Status 04/09/20 22 1 CLOSED Fetus Data First Name Last Name Admitted to NICU Weight (g) Sex Living Outcome Pediatric Complications Fetus ID Race Codes Race Delivery Type 3288.54 2 M Full Term [id number] Vaginal Niall Calculation Initial Niall Date Initial [...] Discharge Date Comments 0 [facility], overdue 3 weeks per patient Discharge Information Feeding Method Contraceptive Method Maternal HG B and HCT Levels
[2025-08-03 07:18] VITALS: BMI 27.4
[2025-08-03 07:27] VITALS: BP 107/75; PULSE 65; RESP 18; O2SAT 99
[2025-08-03] MEDS: METOPROLOL TARTRATE 50MG TABLET PO (07:50)
[2025-08-03 07:56] LABS: Chloride 105 mmol/L (98-107); Potassium 4.4 mmoL/L (3.5-5.1); Sodium 137 mmol/L (136-145)
[2025-08-03 07:59] LABS: Anion Gap 13.4 mEq/L (5-15); Blood Urea Nitrogen 20 mg/dl (7-17); Calcium 9.6 mg/dl (8.4-10.2); Carbon Dioxide 23 mmol/L (22.0-30.0); Creatinine Clearance Estimated 76 mL/min (50-200); Creatinine,Serum 1.00 mg/dl (0.52-1.04); Estimated Glomerular Filt Rate 60 ml/min (>60); GFR (African American) 73 ML/MIN (>60); Glucose 94 mg/dl (74-100)
[2025-08-03 08:20] VITALS: BP 130/82; PULSE 61; RESP 18; O2SAT 100
[2025-08-03] MEDS: NITROGLYCERIN 0.4MG SL TABLET SL (08:20)
[2025-08-03 08:25] VITALS: BP 106/63; PULSE 62; RESP 18; O2SAT 99
[2025-08-03] MEDS: SODIUM CHLORIDE 0.9% 10ML SYR (RAD ONLY) 10 ML IV (08:25)
[2025-08-03] MEDS: 0.9 % SODIUM CHLORIDE 50 ML VIAL IV (08:25)
[2025-08-03] MEDS: IOPAMIDOL-370 (76%);100ML BOTTLE 80 ML IV (08:25)
[2025-08-03 08:30] VITALS: BP 98/50; PULSE 72; RESP 18; O2SAT 100
--- NOTE | 2025-08-03 08:30 | CT_ITS ---
APPROVED REPORT Filtering Machine Tender: CLINICAL INDICATION Chest Pain TECHNIQUE Image Acquisition: A 128 slice MDCT scanner (Moneythinka View) was used for data acquisition. A noncontrast coronary calcium scan was performed. A CT attenuation threshold of 130 Hounsfield units (HU) was used for the detection of calcium in contiguous voxels of 1 sq mm in area to be counted as individual lesions. Bolus tracking in the ascending aorta with a threshold of 180 HU was performed. Immediately afterwards, ECG synchronized cardiac CT was then performed from the cardiac base to apex using retrospective gating with ECG tube current modulation. A total of 85 mL of Isovue 370 mg/mL contrast medium was administered at 5 mL/sec followed by a saline flush using a biphasic injection protocol. A tube voltage of 120 KVp was used. The patient received the following medications prior to the cardiac CT. 50 mg of oral metoprolol 0.8 mg of sublingual nitroglycerin The average heart rate at the time of acquisition was 64 bpm and regular. Image Reconstruction Transaxial images were reconstructed at 0.67 mm slide thickness. Data was reviewed interactively on an advanced workstation capable of 2 and 3-dimensional displays in all conventional reconstruction formats, including multiplanar reformations, maximum intensity projections, curved multiplanar reformations, and volume rendered reconstructions. When applicable, selected routine images describing the relevant coronary anatomy and pathology were saved and sent to PACS. Complications None Technical Quality Overall image quality was good. Coronary artery opacification was adequate. Total DLP (Dose-Length Product) is 1666.1 mGy-cm. The reported value represents the total of one or more individual components during the CT acquisition of this date and at this time, and as such, the same value may appear in more than one CT report depending on the interpreting/reporting physicians. COMPARISON None FINDINGS CT Coronary Calcium Scoring LMA (Left Main Artery) = 0 LAD (Left Anterior Descending) = 0 LCX (Left Coronary Circumflex) = 0 RCA (Right Coronary Artery) = 0 Total Calcium Score = 0 using the AJ-130 method. The interpretation of the calcium heart score is based on the following continuum*: 0 = no calcified plaque detected (risk of coronary artery disease is very low ??? less than 5%) 1-10 = calcium detected in extremely minimal levels (risk of coronary diseases is still low ??? less than 10%) 11-100 = mild levels of plaque detected with certainty (mild or minimal narrowing of heart arteries is likely) 101-400 = definite,at least moderate levels of plaque detected (relatively high risk of a heart attack within 3-5 years) >401-999 = extensive levels of plaque detected (high risk of heart attack, high levels of vascular disease are present, high likelihood of at least one significant coronary narrowing) *The calcium heart score quantifies the burden of coronary calcification/plaque in the coronary arteries. The calcium heart score is not able to evaluate the presence or burden of non-calcified (i.e. soft) plaque. There is no identifiable calcification in the aortic valve, mitral annulus or mitral valve, pericardium, or myocardium. Coronary CT Angiography The coronary arterial system is right dominant. Quantitative Stenosis Grading: Left Main (LM): The left main originates normally from the left sinus of Valsalva. The LM bifurcates into the left anterior descending artery and left circumflex artery. The LM is patent with no evidence of atherosclerosis. Left Anterior Descending (LAD) and Diagonal Branches: The LAD gives off 3 diagonal branch(es). The LAD and its branches are patent with no evidence of atherosclerosis. There is no evidence of LAD-myocardial bridge. Left Circumflex (LCX) and Obtuse Marginals (OM): The LCX gives off 1 Obtuse Marginal (OM) branch(es). The LCX and its branches are patent with no evidence of atherosclerosis. Right Coronary Artery (RCA): The RCA originates normally from the right sinus of Valsalva. The RCA gives off a posterior descending artery (PDA) and posterolateral (PL) branches. The RCA and its branches are patent with no evidence of atherosclerosis. Non-Coronary Cardiac Findings: Analysis of the left ventricular (LV) structure and function was performed after 3-D reconstruction of the LV from axial images, with user-corrected automatic contouring for assessment of LV volumes and user-defined reconstruction from oblique planes for measurement of 3-D cardiac structure and function. -The left ventricle systolic function is normal. -There is no left atrial appendage filling defect. Two right pulmonary veins and two left pulmonary veins drain normally into the left atrium. -No pericardial thickening or calcification. -Central and branch pulmonary arteries in the hkuas-bi-aoxy are unremarkable. -Thoracic aorta within the visualized thoracic aortic-branches in the sgrqn-gq-tsoj is unremarkable. Extracardiac Structures No significant extra-cardiac findings. Note, however, that this study is focused on the cardiac findings. IMPRESSION -Absence of coronary calcification with an Agatston score = 0 using the AJ-130 method. -No evidence of significant flow-limiting atherosclerosis of the coronary arteries. -CAD-RADS 0. Management recommendations per ACC/AHA guidelines*, as clinically appropriate. *Recommendations: CAD RADS 0: Reassurance. Consider non-atherosclerotic causes of chest pain. CAD RADS 1: Consider non-atherosclerotic causes of chest pain. Consider preventive therapy and risk factor modification. CAD RADS 2: Consider non-atherosclerotic causes of chest pain. Consider preventive therapy and risk factor modification, particularly for patients with nonobstructive plaque in multiple segments. CAD RADS 3: Consider further functional testing. Consider symptom-guided anti-ischemic and preventive pharmacotherapy as well as risk factor modification per published guideline statements. CAD RADS 4A: Consider further functional testing or invasive coronary angiography with revascularization per published guideline statements. Consider symptom-guided anti-ischemic and preventive pharmacotherapy as well as risk factor modification per published guideline statements. CAD RADS 4B: Invasive coronary angiography recommended with revascularization per published guideline statements. Consider symptom-guided anti-ischemic and preventive pharmacotherapy as well as risk factor modification per published guideline statements. CAD RADS 5: Consider invasive angiography and/or viability assessment with revascularization per published guideline statements. Consider symptom-guided anti-ischemic and preventive pharmacotherapy as well as risk factor modification per published guideline statements. CRITICAL RESULT None COMMUNICATION Per this written report The coronary and cardiac findings of this CCTA were reviewed, reported, and signed by Phani Ibarra MD (Sorter Packer) Conclusion Electronically signed by : Marissa Ibarra MD 08/06/2025 07:47:15
[2025-08-03 08:40] VITALS: BP 108/71; PULSE 75; RESP 18; O2SAT 98
== END 2025-08-03 23:59 | disposition home or self-care (01) ==
LOC: RAD 06:54
PROVIDERS: PCP Nurse Practitioner Adult Health; Visit Provider Internal Medicine
DX: I49.3 Ventricular premature depolarization (principal); R94.31 Abnormal electrocardiogram [ECG] [EKG]; R07.89 Other chest pain
CPT/HCPCS: 75574; 80048; Q9967

== ENCOUNTER 2025-08-09 10:06 | Outpatient (CLI) | payer BC, SELFPAY ==
--- OUTSIDE RECORDS SUMMARY | 2025-07-06 13:45 | XMS_ITS | Encounter Summary ---
Author Organization [place] [address] Care Team Providers Care Veneer Jointer Name Role Phone Unavailable Primary Care Provider Unavailabl e Reason for Referral * Mammography (Routine) - Pending Review Specialty Diagnoses / Procedures Referred By Contac t Referred To Contact Radiology Procedures MM OUTSIDE FILMS FOR COMPARISON Provider, Unknown Referral ID Status Reason Start Date Expiration Date V isits Requested Visits Authorized [id number] Pending Review 07/27/2025 07/27/2027 1 1 Reason for Visit * Mammography (Routine) - Pending Review Specialty Diagnoses / Procedures Referred By Contac t Referred To Contact Radiology Procedures MM OUTSIDE FILMS FOR COMPARISON Provider, Unknown Referral ID Status Reason Start Date Expiration Date V isits Requested Visits Authorized [id number] Pending Review 07/27/2025 07/27/2027 1 1 Encounter Details Date Type Department Care Team (Latest Contact Info) Description 07/06/2025 1:45 PM EST - 07/06/2025 1:49 PM EST Hospital Encounter [place] [phone] [place] [phone] Provider, Unknown Discharge Disposition: Home or Self [...] Info) Description 01/31/2026 10:00 AM EDT Appointment [facility] [address] [place] [phone] Sole Valle PA-C [address] [place] [address] [address] [place] [address] 01/31/2026 10:30 AM EDT Appointment [facility] [place] [phone] Sole Valle PA-C [address] [place] [address] [address] [place] [address] 01/31/2026 11:30 AM EDT Appointment [facility] REANNA Hughes [phone] Sole Valle PA-C [address] [place] [address] [address] [place] [address] documented as of this encounter Procedures Procedure [...]
--- OUTSIDE RECORDS SUMMARY | 2025-07-06 13:50 | XMS_ITS | Encounter Summary ---
Author Organization [place] [address] Care Team Providers Care Stick Welder Name Role Phone Unavailable Primary Care Provider Unavailabl e Reason for Referral * Mammography (Routine) - Pending Review Specialty Diagnoses / Procedures Referred By Contac t Referred To Contact Radiology Procedures MM OUTSIDE FILMS FOR COMPARISON Provider, Unknown Referral ID Status Reason Start Date Expiration Date V isits Requested Visits Authorized [id number] Pending Review 07/27/2025 07/27/2027 1 1 Reason for Visit * Mammography (Routine) - Pending Review Specialty Diagnoses / Procedures Referred By Contac t Referred To Contact Radiology Procedures MM OUTSIDE FILMS FOR COMPARISON Provider, Unknown Referral ID Status Reason Start Date Expiration Date V isits Requested Visits Authorized [id number] Pending Review 07/27/2025 07/27/2027 1 1 Encounter Details Date Type Department Care Team (Latest Contact Info) Description 07/06/2025 1:50 PM EST - 07/06/2025 11:59 PM EST Hospital Encounter [place] [phone] [place] [phone] Provider, Unknown Discharge Disposition: Home or Self [...] Upcoming Encounters Date Type Department Care Team (Late st Contact Info) Description 01/31/2026 10:00 AM EDT Appointment [facility] [address] [phone] Sole Valle PA-C [address] [place] [address] [address] [place] [address] 01/31/2026 10:30 AM EDT Appointment [facility] RE[place] [phone] Sole Valle PA-C [address] [place] [address] [address] [place] [address] 01/31/2026 11:30 AM EDT Appointment [facility] REANNA Hughes [phone] Sole Valle PA-C [address] [place] [address] [address] [place] [address] documented as of this encounter Procedures Procedure Name Priority Date/Time Associated Diagnosis Comments MM OUTSIDE FILMS FOR COMPARISON Routine 07/27/2025 1:43 PM EST documented in this encounter Results * MM OUTSIDE FILMS FOR COMPARISON (07/27/2025 1:43 PM EST) us Unknown Provider IMG MAMMOGRAPHY ORDERABLES Inge l Result PACS documented in this encounter Visit Diagnoses Not on filedocumented in this encounter
--- OUTSIDE RECORDS SUMMARY | 2025-07-29 11:26 | XMS_ITS | Encounter Summary ---
Author Organization [place] [address] Care Team Providers Care Call Center Professional Name Role Phone Unavailable Primary Care Provider Unavailabl e Reason for Referral * Mammography (Routine) - Pending Review Specialty Diagnoses / Procedures Referred By Contac t Referred To Contact Radiology Diagnoses Abnormal mammogram Procedures MM MAMMO DIGITAL ALEJANDRA DIAGN LEFT Sole Valle PA-C [address] [place] [address] [address] [place] [address] Phone: tel: fax: Referral ID Status Reason Start Date Expiration Date V isits Requested Visits Authorized [id number] Pending Review 07/29/2025 07/29/2027 1 1 * Mammography (Routine) - Pending Review Specialty Diagnoses / Procedures Referred By Shaunna bower Referred To Contact Radiology Diagnoses Abnormal mammogram Procedures MM US BREAST LIMITED LEFT Sole Valle PA-C [address] [place] [address] [place] [address] Phone: tel: fax: Referral ID Status Reason Start Date Expiration Date V isits Requested Visits Authorized [id number] Pending Review 07/29/2025 07/29/2027 1 1 Encounter Details Date Type Department Care Team (Latest Contact Info) Description 07/29/2025 11:26 AM EST - 07/29/2025 11:59 PM EST Hospital Encounter [facility] [place] [address] Sole Valle PA-C [address] [place] [address] [address] [place] [address] Abnormal mammogram (Primary Dx) Discharge Disposition: Home or Self Care Social History Tobacco Use Types Packs/Day Years Used Date Smoking Tobacco: Never Assessed Comments Unknown Sex and Gender Information Value Date Recorded Sex Assigned at Not on file Legal Sex Female 3:56 PM EST Gender Identity Not on file Sexual Orientation Not on file documented as of this encounter Last Filed Vital Signs Vital Sign Reading Time Taken Comments Blood Pressure 116/62 07/29/2025 11:35 AM EST Pulse 79 07/29/2025 11:35 AM EST Temperature 36.4 C (97.6 F) 07/29/2025 11:35 AM EST Respiratory Rate - - Oxygen Saturation - - Inhaled Oxygen Concentration - - Weight 70.3 kg (155 lb) 07/29/2025 11:35 AM EST Height 157.5 cm (5' 2 ) 07/29/2025 11:35 AM EST Body Mass Index 28.35 07/29/2025 11:35 AM EST documented in this encounter Medications at Time of Discharge LEVOthyroxine (SYNTHROID) 125 mcg Oral Tablet Take 125 mcg by mouth daily. metoprolol succinate (TOPROL-XL) 25 mg Oral Tablet Sustained Release 24 hr Take 25 mg by mouth daily. 07/20/2025 omeprazole (PRILOSEC) 40 mg Oral Capsule, Delayed Release(E.C.) Take 40 mg by mouth daily. WEGOVY 2.4 mg/0.75 mL SubQ Pen Injector documented as of this encounter Discharge Disposition Disposition Code Departure Means Destination Home or Self Care documented in this encounter Plan of Treatment Upcoming Encounters Date Type Department Care Team (Late st Contact Info) Description 01/31/2026 10:00 AM EDT Appointment [facility] [place] [address] Sole Valle PA-C [address] [place] [address] [address] [place] [address] 01/31/2026 10:30 AM EDT Appointment [facility] [place] [address] Sole Valle PA-C [address] [place] [address] 01/31/2026 11:30 AM EDT Appointment [facility] [place] [address] Sole Valle PA-C [address] [place] [address] Scheduled Orders Name Type Priority Associated Diagnoses Orde r Schedule MM US BREAST LIMITED LEFT Imaging Routine Abnormal mammogram 1 Occurrences starting 07/29/2025 until 07/29/2027 MM MAMMO DIGITAL ALEJANDRA DIAGN LEFT Imaging Routine Abnormal mammogram 1 Occurrences starting 07/29/2025 until 07/29/2027 documented as of this encounter Visit Diagnoses Diagnosis Abnormal mammogram- Primary Abnormal mammogram, unspecified documented in this encounter Historical Medications * This list may reflect changes made after this encounter. WEGOVY 2.4 mg/0.75 mL SubQ Pen Injector omeprazole (PRILOSEC) 40 mg Oral Capsule, Delayed Release(E.C.) Take 40 mg by mouth daily. metoprolol succinate (TOPROL-XL) 25 mg Oral Tablet Sustained Release 24 hr Take 25 mg by mouth daily. 07/20/2025 LEVOthyroxine (SYNTHROID) 125 mcg Oral Tablet Take 125 mcg by mouth daily. added in this encounter
--- OUTSIDE RECORDS SUMMARY | 2025-08-04 06:50 | XMS_ITS | Continuity of Care Document ---
Author Organization [facility] Phone Care Team Providers Care Engineer Of System Development Name Role Phone AUNDREA WALSH Admitting AUNDREA WALSH Primary Attending DUC SAMAYOA Primary Care AUNDREA WALSH Unavailable ALLERGIES AND ADVERSE REACTIONS ALLERGIES AND ADVERSE REACTIONS Code System Allergy Substance Adverse Reaction Date Reaction (Severity) Comment Status Reported By Updated By No Known Allergies [id number] on September 22, 2024 11:56:54 PM [facility] RESULTS Patient: KEMI Osman Date of : [birth year] 9 LABORATORY RESULTS Information is not available LABORATORY NARRATIVE RESULTS Information is not available RADIOLOGY RESULTS ORDER 100: SHELLY DIAG BILAT 2D AND 3D (LOINC: 87526-0) ORDER DATE: July 06, 2025 7:33:00 PM [facility] PERFORMING LAB: [address] [id number] Final Result Date: July 06, 2025 8:03:[address] [address] Name: GURVINDER MCMULLEN Exam Date: 07/06/2025 : 1980 Age 45 years Gender: F Physician: AUNDREA WALSH Facility: [facility] HSV: Outpatient Exam: SHELLY DIAG BILAT 2D [...] by: Samir Bianchi MD 07/06/2025 03:48 PM [facility] Dictated By: SAMIR BIANCHI Legally authenticated by JEFF Mccarty 2025-07-06 15:03:45 Transcribed By: Transcribed On: 07/06/2025 3:03 PM Electronically signed by: SAMIR BIANCHI 07/06/2025 Thank you for referring GURVINDER MCMULLEN to [facility]. Legally authenticated by JEFF Mccarty 2025-07-06 15:03:45 ORDER 200: US BREAST LIMITED LT (LOINC: 03882-6) ORDER DATE: July 06, 2025 8:11:00 PM [facility] PERFORMING LAB: [address] [id number] Final Result Date: July 06, 2025 8:03:[address] [address] Name: GURVINDER MCMULLEN Exam Date: 07/06/2025 : 1980 Age 45 years Gender: F Physician: AUNDREA WALSH Facility: [facility] HSV: Outpatient Exam: US BREAST LIMITED LT [...] by: Samir Bianchi MD 07/06/2025 03:48 PM [facility] Dictated By: SAMIR BIANCHI Legally authenticated by JEFF Mccarty 2025-07-06 15:03:45 Transcribed By: Transcribed On: 07/06/2025 3:03 PM Electronically signed by: SAMIR BIANCHI 07/06/2025 Thank you for referring GURVINDER MCMULLEN to [facility]. Legally authenticated by JEFF Mccarty 2025-07-06 15:03:45 [...] Effective Dates Offered Cessation Comment Updated By [id number] Historical Tobacco smoking status Never Smoked [id number] on September 22, 2024 11:57:08 PM [facility] SOCIAL HISTORY - Gender Sex: Female SOCIAL HISTORY - Status : status i nformation is not available Intention in Next Year: intention information is not available SOCIAL HISTORY - Assessments Code System Description Status Date Value of Assessment Updated By Comment Assessment Information is no t available SOCIAL HISTORY - Ewiiaapaayp Affiliation Ewiiaapaayp information is not av ailable SOCIAL HISTORY - Sexual Behavior Sexual Orientation Gender Identity SNOMED-CT Description SNO MED -CT Description Activity Level No of Partners Partner Type UpdatedBy Information is not available SOCIAL HISTORY - Occupation Occupation information is no t available ENCOUNTERS ENCOUNTER INFORMATION Reason for Visit UNSPECIF LUMP IN THE LEFT BREAST OVERLAPPING QUADRANTS Admission July 06, 2025 6:49:[address] [address] Discharge July 06, 2025 6:49:00 PM [facility] DISCHARGED TO HOME OR SELF CARE ENCOUNTER DIAGNOSES Notes information is not carter ilable. Code System Diagnosis Onset Date Diagnosis information is not available. ABSTRACT DIAGNOSES Code System Diagnosis Updated By Abatement Date N63.25 ICD10 UNSPECIFIED LUMP IN THE LEFT BREAST, OVERLAPPING QUADRANTS [id number] on June 29, 2025 4:41:40 PM [facility] N63.25 ICD10 UNSPECIFIED LUMP IN THE LEFT BREAST, OVERLAPPING QUADRANTS [id number] on July 08, 2025 9:02:59 AM [facility] CARE TEAM Care Engineer Of System Development Role AUNDREA WALSH Admitting AUNDREA WALSH Primary Attending DUC SAMAYOA Primary Care AUNDREA WALSH Referring CARE TEAM CARE lead atg developer Role on Team Location Telecom Status Start Date End Huang e Updated By DANITA XAVIER APRN PCP [address] [place] [address], [address] normal June 29, 2025 4:41:41 PM UTC July 06, 2025 6:49:00 PM UTC [id number] on June 29, 2025 4:41:41 PM [facility] JILLIAN GUILLAUME Referring [address] [place] [address], [address] normal June 29, 2025 4:41:41 PM UTC July 06, 2025 6:49:00 PM UTC [id number] on June 29, 2025 4:41:41 PM [facility] JILLIAN GUILLAUME Attending [address] [place] [address], [address] normal June 29, 2025 4:41:41 PM UTC July 06, 2025 6:49:00 PM UTC [id number] on June 29, 2025 4:41:41 PM [place] JILLIAN GUILLAUME Admitting [address] [place] [address], [address] normal June 29, 2025 4:41:41 PM UTC July 06, 2025 6:49:00 PM UTC [id number] on June 29, 2025 4:41:41 PM [facility] INSURANCE PROVIDERS INSURANCE PROVIDER Coverage Status - Effective Date Coverage Type Payor Plan Order Relationship To Subscriber Insurance Plan No Insurance Plan 2024-08-12 B PRIMARY 18 [phone] ILDA LEON O
--- OUTSIDE RECORDS SUMMARY | 2025-08-09 10:17 | XMS_ITS | Clinical Summary ---
Author Organization [facility] Address [facility] [place] [address] Phone Care Team Providers Care Human Services Program Specialist Name Role Phone Unavailable Primary Care Provider [...] - 07/29/2025 11:59 PM EST Hospital Encounter [facility] [place] [address] Sole Valle PA-C Abnormal mammogram (Primary Dx) Discharge Disposition: Home or Self Care 07/29/2025 Telephone [facility] [place] [address] Reba Babb MA Appointment Needed 07/26/2025 Telephone [facility] [place] [address] Irma Peraza, hospital nurse 07/06/2025 1:50 PM EST - 07/06/2025 11:59 PM EST Hospital Encounter [facility] [place] [address] [address] Provider, Unknown Discharge Disposition: Home or Self Care 07/06/2025 1:45 PM EST - 07/06/2025 1:49 PM EST Hospital Encounter [facility] [address] [place] [address] Provider, Unknown Discharge Disposition: Home or Self [...] Description 01/31/2026 10:00 AM EDT Appointment [facility] [place] [address] Sole Valle PA-C [address] [place] [address] DR BEE [address] [place] [address] 01/31/2026 10:30 AM EDT Appointment [facility] [place] [address] Sole Valle PA-C [address] [place] [address] DR BEE [facility] [place] [address] 01/31/2026 11:30 AM EDT Appointment [facility] [place] [address] Sole Valle PA-C [address] [place] [address] DR BEE [facility] [place] [address] Health Maintenance Due Date Last [...]
--- OUTSIDE RECORDS SUMMARY | 2025-08-09 10:17 | XMS_ITS | Encounter Summary ---
Author Organization [place] [address] Care Team Providers Care Grade And Center Marker Name Role Phone Unavailable Primary Care Provider Unavailabl e Reason for Visit * Reason Onset Date Comments Referral 07/26/2025 Encounter Details Date Type Department Care Team (Late st Contact Info) Description 07/26/2025 Telephone [facility] [address] [place] [id number] Irma Peraza RN Referral Social History Tobacco [...] received from fax, JL gave to Charissa [facility], she will request images and let us know. Once images received, JL can done TE as pt is already scheduled 07/29 1130 with Sole CAO * Telephone Encounter - Irma Peraza RN - 07/26/2025 3:56 PM EST Pt called N line for an update on a referral from FINANCE TEACHER, Ruth Sinclair at [facility] . Educated pt referral has not been received, pt is going to call office to fax. Fax number provided. Diag mammo and left US in Nov at [facility] for left breast lump with rad rec of 6 month follow up for probable fibroadenoma . Would like a second opinion. Pt is calling for a CBE with VIANE[facility]. Educated pt records and images would be requested by [facility] and thatwe would make sure images available prior to coming in for appt with Sole CAO on 07/29/25 at 9520. Insurance provider: Ernie PARIKH:notify [facility] to request images and wait for referral on fax. documented in this encounter Plan of Treatment Upcoming Encounters Date Type Department Care Team (Late st Contact Info) Description 01/31/2026 10:00 AM EDT Appointment [facility] [place] [address] Sole Valle PA-C [address] [place] [address] DR BEE [address] [place] [address] 01/31/2026 10:30 AM EDT Appointment [facility] [place] [address] Sole Valle PA-C [address] [place] [address] [address] [place], [place] [id number] 01/31/2026 11:30 AM EDT Appointment [facility] [place] [address] Sole Valle PA-C [address] [place] [address] DR BEE [address] [place] [address] documented as of this encounter Visit Diagnoses Not on filedocumented in this encounter
--- OUTSIDE RECORDS SUMMARY | 2025-08-09 10:17 | XMS_ITS | Data Portability ---
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 20 min 2025 08:40A M Ruth Sinclair APRN Not available Not available Not available Lab vitamin D, 25-hydrox y, total, serum 2024 025 [facility], [address] [place] [address], [address], 08/09/2025 08:18:27 TSH + free T4, serum 2024 025 [facility], [address] [place] [address], [address], 08/09/2025 08:18:27 BMP, serum or plasma 2024 025 [facility], [address] [place] [address], [address], 08/09/2025 08:18:26 lipid panel, serum 2024 025 [facility], [address] [place] [address], [address], 08/09/2025 08:18:27 lipid panel, serum 2024 025 [facility], [address] [place] [address], [address], 11/17/2024 08:58:10 CMP, serum or plasma 2024 025 [facility], [address] [place] [address], [address], 11/17/2024 08:58:10 vitamin D, 25-hydrox y, total, serum 2024 025 [facility], [address] [place] [address], [address], 11/17/2024 08:58:11 cobalamin and folate panel, serum 2024 025 [facility], [address] [place] [address], [address], 11/17/2024 08:58:11 TSH + free T4, serum [address], [address], 11/17/2024 08:58:09 Referral gastroent erologist referral 2024 025 [email or web address] Mukund Landeros MD, [address] [place] [address] , [address], [address], 07/27/2025 16:53:58 cardiolog ist referral - Irregular rhythm on AWE, asymptoma tic; 2024 025 MAURILIO Diaz MD, [address] [place] [address] [address], [place], [address], 07/27/2025 10:16:25 Procedures None recorded. Surgeries None recorded. Imaging MAMMO, diagnosti c, digital, bilateral - palpable mobile cluster of densities lateral aspect left breast-3: 00 position 2024 [facility] (Centralized Scheduling), [address] [place] [address] [place], [address], 07/06/2025 15:54:21 US, breast, unilatera l - palpable mobile cluster of densities lateral aspect left breast-3: 00 position 2024 [facility] (Centralized Scheduling), [address] [place] [address] , [place], [address], 07/06/2025 15:54:26 Medication Orders ondansetr on 8 mg disintegr ating tablet 2024 [facility], [address] [place] [address], [address], 08/09/2025 08:12:47 Wegovy 2.4 mg/0.75 mL subcutane ous pen injector 2024 025 [facility], [address] [place], [address], 08/09/2025 08:12:48 ondansetr on 8 mg disintegr ating tablet [address] [facility], [address] [place], [address], 05/06/2025 08:28:14 levothyro xine 125 mcg tablet [address] [facility], [address] [place], [address], 05/06/2025 08:28:15 Wegovy 2.4 mg/0.75 mL subcutane ous pen injector 2024 025 [email or web address] 4 [facility], [address] [place], [address], 05/06/2025 08:28:14 ondansetr on 8 mg disintegr ating tablet 2024 025 [facility], [address] [place] [address], [address], 02/04/2025 11:08:20 levothyro xine 125 mcg tablet 2024 025 [facility], [address] [place] [address], [address], 02/04/2025 11:03:57 Wegovy 1.7 mg/0.75 mL subcutane ous pen injector 2024 025 [facility], [address] [place] [address], [address], 06/22/2025 14:28:03 omeprazol e 40 mg capsule,d elayed release 2024 025 [facility], [address] [place] [address], [address], 11/16/2024 09:11:21 Wegovy 1 mg/0.5 mL subcutane ous pen injector 2024 025 [facility], [address] [place] [address], [address], 05/06/2025 08:02:17 Patient TargetsNo targets recorded. Patient Instructions Encounter Date Encounter Id Patient Instructions Last Modified By Organization Details Last Modified Time 11/16/2024 [id number] learning about healthy weight Not available 11/16/2024 09:08:06 body mass index: care instructions Not available 11/16/2024 09:08:06 folate deficienc y anemia: care instructions Not available 11/16/2024 09:08:06 Will increase Wegovy as she has only been on 0.25 and 0.5 mg. Still is wanting to eat. Will call with labs. RTC in 3 months or sooner as needed. Not available 11/16/2024 09:18:40 02/04/2025 [id number] nausea and vomiting: care instructions Not available [...] their choice. Not available 02/04/2025 11:12:05 05/06/2025 [id number] body mass index: care instructions Not available 05/06/2025 08:28:14 learning about healthy weight Not available 05/06/2025 08:28:14 RTC in 3 months or sooner as needed. Will plan to check TSH at that appointment. Not available 05/06/2025 08:30:35 06/25/2025 [id number] body mass index: care instructions [email or web address] Not available 06/25/2025 09:33:16 learning about healthy weight Not available 06/25/2025 09:33:16 Encourage Self Breast Exam Encourage Healthy eating/regular physical activity Schedule dx mammogram w/left US Encourage adequate calcium intake/Vitamin D Schedule colonoscopy Encourage routine care with PCP Schedule with cardiology Not available 06/25/2025 09:34:11 08/09/2025 [id number] hypothyroidism: care instructions Not available 08/09/2025 08:18:18 Will call with labs/recommendati ons. RTC in 3 months or sooner as needed. 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 Referral for Screening for malignant neoplasm of colon Referring Physician: Ruth Sinclair ELECTRODE TURNER AND FINISHER, Encounter Date: 06/25/2025 Therapist Asst Referral for Ir regular heart beat Irregular rhythm on AWE, asymptomatic; Referring Physician: Ruth Sinclair ELECTRODE TURNER AND FINISHER, Encounter Date: 06/25/2025 Results Created Date Observation Date Name Description Value Unit Range Abnormal Flag Note LastModifiedBy Organization Detail LastModifiedTime 11/17/1911/17/2024 TSH+F REE T4 TSH 0.072 uIU/m L 0.450- 4.500 below low normal Not Available [facility] ([facility]) [address] [place], [address], 11/17/2024 08:58:09 11/17/1911/17/2024 TSH+F REE T4 T4,free(dire ct) 2.05 NG/dL 0.82-1 .77 above high normal Not Available [facility] ([facility]) [address] [place], [address], 11/17/2024 08:58:09 11/17/19 25 11/17/2024 COMP. METAB OLIC PANEL (14) glucose 92 mg/dL 70-99 normal Not Available [facility] ([facility]) [address] [place], [address], 11/17/2024 08:58:09 11/17/19 25 11/17/2024 COMP. METAB OLIC PANEL (14) BUN 17 mg/dL 6-24 normal Not Available [facility] ([facility]) [address] [place], [address], 11/17/2024 08:58:09 11/17/19 25 11/17/2024 COMP. METAB OLIC PANEL (14) creatinine 0.82 mg/dL 0.57-1 .00 normal Not Available [facility] ([facility]) [address] [facility] [place], [address], 11/17/2024 08:58:09 11/17/19 25 11/17/2024 COMP. METAB OLIC PANEL (14) eGFR 90 mL/mi n/1.7 3 >59 normal Not Available [facility] ([facility]) [address] [facility] [place], [address], 11/17/2024 08:58:09 11/17/19 25 11/17/2024 COMP. METAB OLIC PANEL (14) BUN/creatini ne ratio 21 9-23 normal Not Available [facility]) [address] [facility] [place], [address], 11/17/2024 08:58:09 11/17/19 25 11/17/2024 COMP. METAB OLIC PANEL (14) sodium 141 mmol/ L 134-14 4 normal Not Available [facility] ([facility]) [address] [facility] [place], [address], 11/17/2024 08:58:09 11/17/19 25 11/17/2024 COMP. METAB OLIC PANEL (14) potassium 5.3 mmol/ L 3.5-5. 2 above high normal Not Available [facility] ([facility]) [address] [facility] [place], [address], 11/17/2024 08:58:09 11/17/19 25 11/17/2024 COMP. METAB OLIC PANEL (14) chloride 105 mmol/ L 96-106 normal Not Available [facility] ([facility]) [address] [facility] [place], [address], 11/17/2024 08:58:09 11/17/19 25 11/17/2024 COMP. METAB OLIC PANEL (14) carbon dioxide, total 23 mmol/ L 20-29 normal Not Available [facility] ([facility]) [address] [facility] [place], [address], 11/17/2024 08:58:09 11/17/19 25 11/17/2024 COMP. METAB OLIC PANEL (14) calcium 9.4 mg/dL 8.7-10 .2 normal Not Available [facility] ([facility]) [address] [facility] [place], [address], 11/17/2024 08:58:09 11/17/19 25 11/17/2024 COMP. METAB OLIC PANEL (14) protein, total 6.8 g/dL 6.0-8. 5 normal Not Available [facility] ([facility]) [address] [facility] [place], [address], 11/17/2024 08:58:09 11/17/19 25 11/17/2024 COMP. METAB OLIC PANEL (14) albumin 4.0 g/dL 3.9-4. 9 normal Not Available [facility] ([facility]) [address] [facility] [place], [address], 11/17/2024 08:58:09 11/17/19 25 11/17/2024 COMP. METAB OLIC PANEL (14) globulin, total 2.8 g/dL 1.5-4. 5 Not Available [facility] ([facility]) [address] [facility] [place], [address], 11/17/2024 08:58:09 11/17/19 25 11/17/2024 COMP. METAB OLIC PANEL (14) bilirubin, total <0.2 mg/dL 0.0-1. 2 Not Available [facility] ([facility]) [address] [facility] [place], [address], 11/17/2024 08:58:09 11/17/19 25 11/17/2024 COMP. METAB OLIC PANEL (14) alkaline phosphatase 89 IU/L 44-121 normal Not Available [facility] [address] [facility] [place], [address], 11/17/2024 08:58:09 04/07/20 25 11/17/2024 COMP. METAB OLIC PANEL (14) AST (SGOT) 15 IU/L 0-40 normal Not Available [facility] ([facility]) [address] [facility] [place], [address], 11/17/2024 08:58:09 11/17/19 25 11/17/2024 COMP. METAB OLIC PANEL (14) ALT (SGPT) 18 IU/L 0-32 normal Not Available [facility] ([facility]) [address] [place], [address], 11/17/2024 08:58:09 11/17/19 25 11/17/2024 LIPID PANEL cholesterol, total 164 mg/dL 100-19 9 normal Not Available [facility] ([facility]) [address] [place], [address], 11/17/2024 08:58:10 11/17/19 25 11/17/2024 LIPID PANEL triglyceride s 226 mg/dL 0-149 above high normal Not Available [facility] ([facility]) [address] [place], [address], 11/17/2024 08:58:10 11/17/19 25 11/17/2024 LIPID PANEL HDL cholesterol 46 mg/dL >39 normal Not Available [facility] [address] [place], [address], 11/17/2024 08:58:10 11/17/19 25 11/17/2024 LIPID PANEL VLDL cholesterol nasir 38 mg/dL 5-40 Not Available [facility] ([facility]) [address] [place], [address], 11/17/2024 08:58:10 11/17/19 25 11/17/2024 LIPID PANEL LDL [facility] 80 mg/dL 0-99 Not Available [facility] [address] [place], [address], 11/17/2024 08:58:10 11/17/19 25 11/17/2024 LIPID PANEL LDL calc comment: 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 Not Available [facility] ([facility]) [address] [facility], [place], [address], 11/17/2024 08:58:11 11/17/1911/17/2024 VITAM IN D, 25-HY DROXY vitamin D, [...] Medic ine). 2010. Dieta ry refer ence intak es for calci um and D. Raza wagner [place]: The [facility] Press . 2. Lucia white MF, Celsa almanza [place], Kg off-F errar i THOMPSON, et al. Evalu ation , treat ment, and preve ntion of vitam in D defic iency : an Endoc rine Socie ty clini nasir pract ice guide line. JCEM. 2010; 967) :1911 -30. Not Available [facility] ([facility]) [address] [facility], [place], [address], 11/17/2024 08:58:11 12/01/1912/01/2024 BASIC METAB OLIC PANEL (8) glucose 86 mg/dL 70-99 normal Not Available [facility] ([facility]) [address] [facility], [place], [address], 12/01/2024 04:14:21 12/01/19 25 12/01/2024 BASIC METAB OLIC PANEL (8) BUN 16 mg/dL 6-24 normal Not Available [facility] ([facility]) [address] [facility], [place], [address], 12/01/2024 04:14:21 12/01/19 25 12/01/2024 BASIC METAB OLIC PANEL (8) creatinine 1.07 mg/dL 0.57-1 .00 above high normal Not Available [facility] ([facility]) [address] [facility], [place], [address], 12/01/2024 04:14:21 12/01/1912/01/2024 BASIC METAB OLIC PANEL (8) eGFR 66 mL/mi n/1.7 3 >59 normal Not Available [facility] ([facility]) [address] [place], [address], 12/01/2024 04:14:21 12/01/1912/01/2024 BASIC METAB OLIC PANEL (8) BUN/creatini ne ratio 15 9-23 normal Not Available [facility] ([facility]) [address] [place], [address], 12/01/2024 04:14:21 12/01/19 25 12/01/2024 BASIC METAB OLIC PANEL (8) sodium 139 mmol/ L 134-14 4 normal Not Available [facility] ([facility]) [address] [place], [address], 12/01/2024 04:14:21 12/01/19 25 12/01/2024 BASIC METAB OLIC PANEL (8) potassium 4.7 mmol/ L 3.5-5. 2 normal Not Available [facility] ([facility]) [address] [place], [address], 12/01/2024 04:14:21 12/01/19 25 12/01/2024 BASIC METAB OLIC PANEL (8) chloride 103 mmol/ L 96-106 normal Not Available [facility] ([facility]) [address] [place], [address], 12/01/2024 04:14:21 12/01/19 25 12/01/2024 BASIC METAB OLIC PANEL (8) carbon dioxide, total 23 mmol/ L 20-29 normal Not Available [facility] ([facility]) [address] [place], [address], 12/01/2024 04:14:21 12/01/19 25 12/01/2024 BASIC METAB OLIC PANEL (8) calcium 9.5 mg/dL 8.7-10 .2 normal Not Available [facility] ([facility]) [address] [place], [address], 12/01/2024 04:14:21 02/02/20 25 02/02/2025 TSH+F REE T4 TSH 2.870 uIU/m L 0.450- 4.500 normal Not Available [facility] ([facility]) [address] [place], [address], 02/02/2025 08:23:22 02/02/20 25 02/02/2025 TSH+F REE T4 T4,free(dire ct) 1.53 NG/dL 0.82-1 .77 normal Not Available [facility] ([facility]) [address] [facility], [place], [address], 02/02/2025 08:23:22 02/02/20 25 02/02/2025 VITAM IN [...] Medic ine). 2010. Dieta ry refer ence intak es for calci um and D. Raza wagner [place]: The [facility] Press . 2. Lucia white MF, Celsa almanza [place], Kg off-F errar i THOMPSON, et al. Evalu ation , treat ment, and preve ntion of vitam in D defic iency : an Endoc rine Socie ty clini nasir pract ice guide line. JCEM. 2010; 96(7) :1911 -30. Not Available [facility] ([facility]) [address] [facility], [place], [address], 02/02/2025 08:23:23 07/06/20 25 07/06/2025 US, priya tmarimara teral No observ ation record ed. [email or web address] [facility] (Centralized Scheduling) [address] [place] [address] [place], [address], 07/07/2025 13:17:12 07/06/20 25 07/06/2025 MAMMO , diagn ostic , digit al, bilat eral No observ ation record ed. [email or web address] [facility] (Central Scheduling) [address] [place] [address] [place], [address], 07/07/2025 16:57:24 07/06/20 25 07/06/2025 US, priya tjasmyn termalgorzaat No observ ation record ed. [email or web address] [facility] (Central Scheduling) [address] [facility] , [place], [address], 07/07/2025 16:57:25 07/06/20 25 07/06/2025 MAMMO , diagn ostic , digit al, bilat eral No observ ation record ed. [email or web address] [facility] (Centralized Scheduling) [address] [place] [address] , [place], [address], 07/07/2025 13:17:28 07/11/2007/09/2025 trans -thor acic echoc ardio gram (TTE) (PROC ) No observ ation record ed. [facility] [address], [place], [address], 07/11/2025 16:10:27 08/06/20 25 08/03/2025 CT, angio gram, coron sean arter ies, w/ contr ast No observ ation record ed. [email or web address], [place], [address], 08/09/2025 08:39:19 Result Notes None recorded. Problems Name Problem SNOMED Code Status Onset Date Resolution Date Notes Provider Name and Address Organization Details Recorded Time Hypothyroid ism [id number] Active Mallory Montalvo MD [address], [place], [address], [place] [facility] 17:11:22 Gastroesoph ageal reflux disease without esophagitis 056767968 Active 2020 Mallory Montalvo MD [address], [place], [address], [place] [facility] 17:42:38 Obstructive sleep apnea syndrome 70025336 Active 2021 Mallory Montalvo MD [address], [place], [address] [facility] 17:42:38 Mixed hyperlipide bruna 341286926 Active 2021 Mallory Montalvo MD [address], [place], [address], [place] [facility] 17:00:17 Body mass index 30+ - obesity 108576740 Active 2022 Francoise Zan , DINING CHAIR SEAT CUSH[employer] TRIMMER [address], [place], [address], [place] [facility] 09:04:31 Asthma 217252787 Active 2022 Mallory Montalvo MD [address], [place], [address], [place] [facility] 17:32:13 History of total hysterectom y 061404368 Active 2022 Ruth Sinclair, DINING CHA[employer] SE[employer] TRIMMER [address], [place], [address], [place] [facility] 3 15:46:38 Elevated blood-press ure reading without diagnosis of hypertensio n 973654453 Active 2022 Mallory Montalvo MD [address], [place], [address], [place] [facility] 17:11:26 Hypertensiv e disorder 89205809 Active 2022 Mallory Montalvo MD [address], [place], [address], [place] [facility] 17:13:11 Acute bronchitis 59594182 Completed 202306/22/2024 Estrellita Osorio null, [place] [facility] 5 11:47:12 Acute diarrhea 607678568 Completed 202306/22/2024 Estrellita Osorio null[place] [facility] 4 08:49:06 Cough 15757219 Completed 202306/22/2024 Estrellita Osorio null[place] [facility] 11:47:33 Acute gastroenter itis 55138758 Completed 202306/22/2025 Estrellita Osorio [place] [facility] 11:47:37 Acute infectious nonbacteria l gastroenter itis 237944132 Completed 202306/22/2025 Estrellita Osorio [place] [facility] 11:47:24 External hemorrhoids 52432194 Active 2023 Mallory Montalvo MD [address], [place], [address], [place] [facility] 4 13:59:51 Folic acid deficiency 612246443 Active 2023 Francoise Zuluaga , DINING CHA[employer]IMMER [address], [place], [address], [place] [facility] 11:02:55 Vitamin D deficiency 31218585 Active 2023 Francoise Zuluaga , DINING CHA[employer] TRIMMER [address], [place], [address], [place] [facility] 09:06:21 Acute maxillary sinusitis 27659212 Completed 202306/22/2025 Estrellita Osorio null[place] [facility] 11:47:35 Obese 629530203 Active 2023 Francoise Zuluaga , DINING CHA[employer]IMMER [address], [place], [address], [place] [facility] 10:11:24 Obesity 804622299 Active 2023 Francoise Zuluaga , D[employer]MER [address], [place], [address], [place] [facility] 10:11:26 Acute bronchitis 40990701 Completed 202306/22/2025 Estrellita [place]sorio null[place] [facility] 11:47:12 Cough 03770069 Completed 202306/22/2025 Estrellita Osor[place] [facility] 11:47:33 Anxiety 83974776 Active 2024 Francoise Zuluaga , D[employer]ING [employer]MER [address], [place], [address], [place] [facility] 16:47:04 Dyslipidemi a 547817240 Active 2024 Francoise Cisnerosoberts ASAELN [address], [place], [address], [place] [facility] 09:09:59 Hyperkalemi a 15521554 Active 2024 Francoise CisnerosASAEL blackN [address], [place], [address], [place] [facility] 5 09:42:55 Nausea 864400284 Active 2024 Francoise Cisneroswayne [employer]ING [employer]MER [address], [place], [address], [place] [facility] 08:13:42 Overweight in adulthood with body mass index of 25 or more but less than 30 072253741 Active 2024 Ruthvinh Sinclair APRN [address], [place], [address], [place] [facility] 09:25:22 Breast lump 81500214 Active 2024 Ruthvinh Sinclair APRN [address], [place], [address], [place] [facility] 09:26:24 Irregular heart beat 639063504 Active 2024 Ruth YahirSKYE hamilton [address], [place], [address], [place] [facility] 5 09:30:41 Mild mitral valve regurgitati on 114674439 Active 2024 Francoise CisnerosASAEL blackN [address], [place], [address], [place] [facility] 5 16:09:37 Multiple premature ventricular complexes 315194263 Active 2024 Francoise Zan , D[employer]ING [employer]MER [address], [place], [address], [place] [facility] 5 08:34:02 Problem Notes None recorded. Procedures Surgical History Date Name Laterality Status Provider Name and Address Organization Details Recorded Time 025 Medication Reconcilliation completed Douglasroxann Cristian [place] - [facility] 10/01/2024 07:45:53 025 Date of Last Mammogram completed Ruth Sinclair, D[employer]ING [employer]MER [address], [place], [address], [place] [facility] 08/24/2024 10:05:24 024 anal fissurectomy completed Estrellita Osorio [place] - [facility] 06/22/2024 08:58:03 024 Medication Reconcilliation completed Maritza Larkin [place] - [facility] 10/23/2023 13:28:53 024 Medication Reconcilliation completed Leigh Enrique [place] [facility] 10/17/2023 13:13:57 023 Medication Reconcilliation completed Maritza Larkin [place] [facility] 08/14/2022 16:49:21 010 laparoscopic total hysterectomy completed Estrellita Osorio [place] [facility] 06/17/2023 15:20:34 010 Date of Last Pap Smear completed Estrellita Schumacher [place] [facility] 04/09/2022 15:35:45 Eye Surgery completed Estrellita Osorio [place] [facility] 06/17/2023 15:17:49 Dilation and Curettage, sharp completed Ruth Sinclair, D[employer]MER [address], [place], [address], [place] [facility] 06/17/2023 15:46:20 Diagnostic Laparoscopy completed Jayna Bhakta [place] - [facility] 08/01/2016 12:18:04 Thyroid Surgery completed Ruth grullon, D[employer]ING [employer]MER [address], [place], [address], [place] [facility] 06/17/2023 15:45:52 Tubal Ligation [...] nued on: 10/08/19 14 10:01AM; User: [email or web address]; EstRadhika Completi on: 10/13/19 14;Indic ation: Acute Bacteria l Sinusiti s - (08.4603 00) Not Available Not Available Not Available promethaz ine-DM 6.25 mg-15 mg/5 mL oral syrup take 5 millilit ers by oral route every 4 hours as needed 09/13 completed prometha zine-DM 6.25-15 mg/5 mL oral syrup;Re corded Status: Recorded on: 07/04/20 11 4:16PM;D iscontin ued Status: Disconti nued on: 09/13/19 12 4:30PM;U ser: [email or web address]; Indicati on: Cough - (16.4692 00);Prin danielle: 07/04/20 11 Not Available Not [...] ondansetr on 8 mg disintegr ating tablet Place 1 tablet twice a day by translin gual route as needed. 2024 active Not Available Not Available Not Avai lable Kenalog 40 mg/mL suspensio n for injection [...] completed Not Available Not Available Not Available metoprolo l succinate ER 25 mg tablet,ex tended release 24 hr TAKE 1 TABLET BY MOUTH ONCE DAILY active Not Available Not Available No t Available dexametha sone sodium phosphate 4 mg/mL [...] e 50 mcg/actua tion nasal spray,mary pension [place] 1 spray every day by intranas al [...] 2.4 mg/0.75 mL subcutane ous pen injector Inject 2.4 mg every week by subcutan eous route, for weight manageme nt.. 2024 active Not Available Not Available Not Avai lable Wegovy 1.7 mg/0.75 mL subcutane ous pen [...] Updated DateTime 5 156.85 cm 34.7 kg/m2 70707.0 7 g 98 [degF] 67 /min 98 [...] Updated DateTime 5 156.85 cm 33 kg/m2 45447.4 3 g 76 /min 99 % 18 /min 98 [degF] 0 124/78 mm[Hg] Makenzie Foster [facility] 5 10:43:44 Date Recorded Body height Body mass index (BMI) Body weight Body temperature Pain severity - 0-10 verbal numeric rating [Score] - Reported Respiratory rate Heart rate Oxygen saturation Systolic And Diastolic Provider Name and Address Organization Details Last Updated DateTime 5 156.85 cm 29.7 kg/m2 75160.3 7 g 97.8 [degF] 0 18 /min 81 /min 98 % 120/68 mm[Hg] Douglasroxann Foster [facility] 5 08:04:14 Date Recorded Body height Body mass index (BMI) Body weight Pain severity - 0-10 verbal numeric rating [Score] - Reported Systolic And Diastolic Provider Name and Address Organization Details Last Updated DateTime 06/25/2025 156.85 cm 29.2 kg/m2 07228.31 g 0 102/60 mm[Hg] Estrellita Jo [facility] 5 08:37:43 Date Recorded Body height Body mass index (BMI) Body weight Heart rate Oxygen saturation Respiratory rate Pain severity - 0-10 verbal numeric rating [Score] - Reported Systolic And Diastolic Provider Name and Address Organization Details Last Updated DateTime 5 156.85 cm 27.7 kg/m2 68984.6 6 g 75 /min 99 % 18 /min 0 118/72 mm[Hg] Douglasroxann Foster [facility] 5 08:00:48 Social History Question Answer Notes LastModified by Organization Details LastModified Time Tobacco Smoking Status Never Smoker Jayna chinchilla [facility] 08/01/2016 12:16:25 Able To Swim? Yes [email or web address] Information not available 06/17/2023 Do You Have An Advance Directive? No Information not available 08/01/2016 How Many Years Have You Consumed Alcohol? 19 Information not available 06/17/2023 Are You Blind Or Do You Have Difficulty Seeing? No [email or web address] Information not available 06/17/2023 Is Blood Transfusion Acceptable In An Emergency? Yes [email or web address] Information not available 04/09/2022 What Is Your Level Of Caffeine Consumption? Moderate [email or web address] Information not available 06/17/2023 How Much Tobacco Do You Chew? None Information not available 05/14/2019 In The 14 Days Before Symptom Onset, Have You Had Close Contact With A Laboratory-conf irmed COVID-19 While That Case Was Ill? No [email or web address] Information not available 06/17/2023 In The 14 Days Before Symptom Onset, Have You Had Close Contact With A Person Who Is Under Investigation For COVID-19 While That Person Was Ill? No [email or web address] Information not available 06/17/2023 Have You Been To An Area Known To Be High Risk For COVID-19? No [email or web address] Information not available 06/17/2023 Are You Deaf Or Do You Have Serious Difficulty Hearing? No Information not available 08/01/2016 What Type Of Diet Are You Following? REGULAR Information not available 08/01/2016 Which Illicit Or Recreational Drugs Have You Used? Denies Information not available 05/14/2019 Have You Processed Blood Or Body Fluids From An Ebola Virus Disease Patient Without Appropriate PPE? No [email or web address] Information not available 06/17/2023 Do You Reside In Or Have You Traveled To An Area Where Ebola Virus Transmission Is Active? No [email or web address] Information not available 06/17/2023 What Is The Highest Grade Or Level Of School You Have Completed Or The Highest Degree You Have Received? [id number] [email or web address] Information not available 06/22/2024 Swimming/diving Yes [email or web address] Informati on not available 06/17/2023 Have There Been Any Changes To Your Family Or Social Situation? No [email or web address] Information not available 06/17/2023 What Is The Fluoride Status Of Your Home? Unknown [email or web address] Information not available 06/17/2023 Hard Of Hearing Or Deaf In One Or Both Ears? No [email or web address] Information not available 06/17/2023 Have You Recently Or Are You Planning To Travel To An Area With Zika Virus? No [email or web address] Information not available 06/17/2023 How Many Years Have You Used Illicit Or Recreational Drugs? 0 [email or web address] Information not available 06/17/2023 Legally Blind In One Or Both Eyes? No [email or web address] Information not available 06/17/2023 Live Alone Or With Others? With Others [email or web address] Information not available 06/17/2023 Do You Have A Medical Power Of Portfolio Accountant? No [email or web address] Information not available 06/17/2023 What Was The Date Of Your Most Recent Tobacco Screening? 06/25/2025 [email or web address] Information not available 06/25/2025 How Many Children Do You Have? 1 Information not available 05/14/2019 Do You Use Protection During Sex? No [email or web address] Information not available 06/17/2023 Do You Use Protection Against STDs? No [email or web address] Information not available 04/09/2022 What Is Your Relationship Status? [email or web address] Information not available 06/22/2024 Do You Use Your Seat Belt Or Car Seat Routinely? Yes [email or web address] Information not available 06/17/2023 Seat Belts Used Routinely Yes [email or web address] Information not available 06/17/2023 Are You Sexually Active? Yes Information not available 06/25/2025 Smoke Alarm In Home Yes [email or web address] Information not available 06/17/2023 Do You Have Smoke And Carbon Monoxide Detectors In Your Home? Yes Information not available 04/09/2022 Are You Passively Exposed To Smoke? No Information not available 05/14/2019 How Much Tobacco Do You Smoke? No [email or web address] Information not available 06/17/2023 General Stress Level Low [email or web address] Information not available 06/17/2023 Do You Use Sunscreen Routinely? No [email or web address] Information not available 06/17/2023 Has Tobacco Cessation Counseling Been Provided? Yes [email or web address] Information not available 06/25/2025 On What Date Was Tobacco Cessation Counseling Provided? 06/25/2025 [email or web address] Information not available 06/25/2025 Do You Have Difficulty Walking Or Climbing Stairs? No [email or web address] Information not available 06/17/2023 What Contraceptive Method Was Reported At Start Of This Visit? Female Sterilization Hysterectomy [email or web address] Information not available 06/17/2023 Do You Want To Talk About Contraception Or Prevention During Your Visit Today? No - I Do Not Want To Talk About Contraception Today Because I Am Here For Something Else [email or web address] Information not available 06/17/2023 Do You Have Any Future Plans To Get ? No, I Don't Want To Become [email or web address] Information not available 06/17/2023 Sex: Female Functional Status Question Answer Note LastModified by Organizat ion Details LastModified Time How many times per week do you consume alcohol? Less than 1 time per week [email or web address] Information not available 12/05/2023 Do you or have you ever used smokeless tobacco? Never used smokeless tobacco Information not available 05/14/2019 Are you currently employed? Yes Information not available 05/14/2019 Do you have transportation difficulties? No [email or web address] Information not available 06/17/2023 Are you able to care for yourself independently? Yes Information not available 08/01/2016 Do you have difficulty dressing, bathing, grooming, or toileting? No [email or web address] Information not available 06/17/2023 Do you or have you ever used e-cigarettes or vape? Never used electronic cigarettes Information not available 05/14/2019 What is your exercise level? Occasional [email or web address] Information not available 06/17/2023 Do you use any illicit or recreational drugs? No Information not available 06/17/2023 Do you or have you ever used any other forms of tobacco or nicotine? No [email or web address] Information not available 06/17/2023 What is your level of alcohol consumption? Occasional Information not available 04/09/2022 What is your status? Not [email or web address] Information no t available 06/17/2023 Are you able to walk independently without assistance or assistive devices? YESWOREST [email or web address] Information not available 06/17/2023 Do you have difficulty doing errands alone? No [email or web address] Information not available 06/17/2023 What is your occupation? [employer] [place] Information not available 06/17/2023 Mental Status Question Answer Note LastModified by Organizat ion Details LastModified Time Do you feel stressed (tense, restless, nervous, or anxious, or unable to sleep at night)? [id number] [email or web address] Information not available 06/22/2024 Do you have difficulty concentrating, remembering or making decisions? No [email or web address] Information no t available 06/17/2023 Family History [...] 08:23:25 Paternal Grandfather Malignant neoplasm of lung [email or web address] Not available 2022 15:22:24 Mother Asthma [email or web address] Not available 06/17/2023 15:09:14 Mother Anxiety disorder [email or web address] Not available 2022 15:22:24 Mother Depressive disorder [email or web address] Not available 2022 15:22:24 Mother Obesity Not available 06/17/2023 15:09:14 Mother Substance abuse [email or web address] Not available 2022 15:09:14 Son Asthma [email or web address] Not available 06/17/2023 15:09:14 Unspecified Relation Disorder of thyroid gland API-251 Not available 2024 08:23:25 Paternal Aunt Malignant neoplasm of transverse colon API-251 Not available 2024 08:23:25 Maternal Aunt Malignant neoplasm of breast [email or web address] Not available 2023 08:42:35 Sister Disorder of thyroid gland [email or web address] Not available 2023 08:42:35 Father Polyp of [...] colitis N Cerebrovascular Disease N Depression N Guillain-[place] N Sleep Apnea Y Aneurysm N Bronchitis [...] quadrivalent, preservative 1 completed Maritza Larkin null, [place] - [facility] 05/10/2021 17:42:04 influenza, unspecified formulation 5 completed Not Available [facility] 09/26/2023 10:48:58 Tdap 4 completed Francoise Zuluaga, [employer] [address], [place], [address], [place] - [facility] 05/18/2024 10:49:30 Influenza, split virus, trivalent, PF 4 completed Charissa Baca null, [place] - [facility] 06/29/2024 08:52:46 Influenza, split virus, trivalent, PF 5 completed Francoise Zuluaga, [employer] [address], [place], [address], [place] [facility] 05/06/2025 08:28:15 COVID-19, mRNA, LNP-S, PF, 100 mcg/0.5mL dose or 50 mcg/0.25mL dose 1 completed Estrellita Osorio null, [place] - [facility] 06/17/2023 15:09:55 COVID-19, mRNA, LNP-S, PF, 100 mcg/0.5mL dose or 50 mcg/0.25mL dose 1 completed Estrellita Osorio [place] - [facility] 06/17/2023 15:09:55 COVID-19, mRNA, LNP-S, PF, 30 mcg/0.3 mL dose 1 completed Estrellita [place]sor[place] - [facility] 06/17/2023 15:09:55 Hep A, adult 9 completed Estrellita Osorio null, [place] - [facility] 06/17/2023 15:09:55 Hep A, adult 8 completed Estrellita Osorio null, [place] [facility] 06/17/2023 15:09:55 Influenza, split virus, trivalent, preservative 3 completed Estrellita Schumacher null, [place] - [facility] 07/18/2023 09:31:26 Influenza, split virus, trivalent, PF 2 completed Estrellita Schumacher null, [place] - [facility] 07/18/2023 09:31:26 Influenza, split virus, quadrivalent, PF 3 completed Estrellita Schumacher null, [place] [facility] 07/18/2023 09:31:26 Past Encounters Encounter ID Performer Location Encounter Start Date Encounter Closed Date Diagnosis/Indication Diagnosis SNOMED-CT Code Diagnosis ICD10 Code Diagnosis IMO Codes Diagnosis Note [id number] Mallory Montalvo MD [address] [place] [address] 08/01/2016 14:45:35 08/01/2016 16:21:46 Acute bacterial sinusitis 22729949 J01.90 [id number] Mallory Montalvo MD [address] [place] [address] 12/21/2016 13:42:20 12/21/2016 14:08:51 Herpes zoster 1225640 B02.9 [id number] Mallory Montalvo MD [address] [place] [address] 01/28/2017 09:11:14 01/28/2017 09:50:27 Acute bacterial sinusitis 37454031 J01.90 [id number] Maddie Malik APRN [address] [place] [address] 04/09/2017 16:10:08 04/09/2017 17:08:35 Body mass index 30+ - obesity 535716486 Z68.32 Acute folliculitis 14295 7007 L73.9 Seasonal a llergic rhinitis 024782260 J30.2 Tuberculos is screening 765577416 Z11.1 General ex amination of patient 957654930 Z00.01 [id number] Ambrocio Parra APRN [address] [place] [address] 01/14/2018 13:18:53 01/14/2018 13:40:45 Dysuria 69892674 R30.0 Acute urin sean tract infection 490630592 N39.0 Hypothyroidism 92711110 E03.9 [id number] Jeremy Parra MD [address] [place] [address] 07/28/2018 14:38:42 07/28/2018 15:38:42 Acute bronchitis with bronchospasm 40474986 J20.9 [id number] Mallory Montalvo MD [address] [place] [address] 08/25/2018 16:26:01 08/25/2018 17:48:15 Body mass index 30+ - obesity 821206046 Z68.34 Hypothyroidism 82827337 E03.9 Vitamin D deficiency 347 46235 E55.9 Weight gain 5369270 R63. 5 [id number] Mallory Montalvo MD [address] [place] [address] 11/21/2018 09:23:42 11/21/2018 10:39:22 Hypothyroidism 17724771 E03.9 Mixed hyperlipidemia 267 525746 E78.2 Vitamin D deficiency 347 39057 E55.9 Acute bact erial sinusitis 75510223 J01.90 [id number] Cameron Nolen MD [address] [place] [address] 05/14/2019 12:28:43 05/14/2019 13:38:16 Hypothyroidism 97260499 E03.9 Hyperlipidemia 37511319 E78.5 Acute maxi llary sinusitis 47878754 J01.00 Mixed hyperlipidemia 267 384827 E78.2 Thyroid nodule 475490895 E04.1 Body mass index 30+ - obesity 752215595 Z68.33 [id number] Mallory Montalvo MD [address] [place] [address] 07/08/2019 13:32:31 07/08/2019 14:23:39 Acute bacterial sinusitis 10028546 J01.90 Acute bron chitis with bronchospasm 62875444 J20.9 [id number] Mallory Montalvo MD [address] [place] [address] 09/02/2019 10:25:46 09/02/2019 11:15:57 Pre-surgery evaluation 780955104 Z01.818 Thyroid nodule 628384707 E04.1 [id number] Cameron Nolen MD [address] [place] [address] 04/22/2020 10:18:45 04/22/2020 10:55:33 Dysuria 70812467 R30.9 Acute urin sean tract infection 042154164 N39.0 Body mass index 30+ - obesity 408605939 Z68.36 [id number] Mallory Montalvo MD [address] [place] [address] 06/06/2020 11:13:33 06/06/2020 12:09:37 Viral screening 712922760 Z11.59 Epigastric pain 06860254 R10.13 Gastroesop hageal reflux disease without esophagitis 535162602 K21.9 [id number] Mallory Montalvo MD [address] [place] [address] 08/22/2020 18:14:46 08/22/2020 19:02:50 Gastroesophageal reflux disease without esophagitis 024253462 K21.9 [id number] Mallory Montalvo MD [address] [place] [address] 04/11/2021 15:50:42 04/11/2021 16:50:31 Hypothyroidism 81179836 E03.9 Vitamin D deficiency 347 84158 E55.9 [id number] Mallory Montalvo MD [address] [place] [address] 04/26/2021 08:44:44 04/26/2021 09:40:59 Cough 39034903 R05 Viral screening 88988745 4 Z11.59 Acute bact erial sinusitis 77710087 J01.90 [id number] Mallory Montalvo MD [address] [place] [address] 05/10/2021 16:51:25 05/10/2021 17:39:02 Gastroesophageal reflux disease without esophagitis 843744503 K21.9 Administra tion of influenza vaccine 52417693 Z23 Obstructiv e sleep apnea syndrome 91452606 G47.33 [id number] Mallory Montalvo MD [address] [place] [address] 08/16/2021 17:22:06 08/16/2021 18:16:24 Obstructive sleep apnea syndrome 05068875 G47.33 [id number] Mallory Montalvo MD [address] [place] [address] 10/10/2021 13:46:00 10/10/2021 14:20:01 Acute bronchitis with bronchospasm 60896888 J20.9 Hypothyroidism 89036349 E03.9 Gastroesop hageal reflux disease without esophagitis 589979743 K21.9 Obstructiv e sleep apnea syndrome 65132698 G47.33 [id number] Michelle SKYE [place] [employer] [address] [place] [address] [place] [address] 04/09/2022 15:24:18 04/09/2022 16:20:10 Routine gynecologic examination done 5409482312 9101 Z01.419 Examinatio n of blood pressure 262027956 Z01.30 BP goal < 140/90 Depression screening 171 147617 Z13.31 Diet education 29363842 Z71.3 2725-4116 calorie diet recommende d with an emphasis on reducing sugar and refined carbohydra gabriela, avoiding highly processed foods and decreasing saturated fats. She declines dietary consult. Counseling 625854489 Z71 .82 Exercise counselricky g. Patient encouraged to exercise 30 minutes 5 days a week. Hypothyroidism 15198221 E03.9 Managed per PCP Body mass index 30+ - obesity 268711588 Z68.36 Screening mammography 24 620783 Z12.31 History of total hysterectomy 124101082 Z90.710 Gastroesop hageal reflux disease without esophagitis 918144390 K21.9 Managed per PCP [id number] Mallory Montalvo MD [address] [place] [address] 04/10/2022 16:47:59 04/10/2022 18:02:45 Hypothyroidism 88318705 E03.9 Gastroesop hageal reflux disease without esophagitis 043434405 K21.9 Body mass index 30+ - obesity 168031238 Z68.36 Obesity 094025439 E66.3 Vitamin D deficiency 347 75619 E55.9 Mixed hyperlipidemia 267 033817 E78.2 [id number] Mallory Montalvo MD [address] [place] [address] 08/14/2022 16:39:53 08/14/2022 17:20:44 Right side sciatica 6815766560 42461 M54.31 Body mass index 30+ - obesity 661120599 Z68.37 [id number] Mallory Montalvo MD [address] [place] [address] 10/02/2022 16:58:12 10/02/2022 17:36:04 Acute bacterial sinusitis 27206916 J01.90 Blood gluc ose outside reference range 829972027 R73.09 Body mass index 30+ - obesity 208005668 Z68.38 [id number] Mallory Montalvo MD [address] [place] [address] 10/31/2022 16:44:54 10/31/2022 17:38:26 Hypothyroidism 93765552 E03.9 Gastroesop hageal reflux disease without esophagitis 623656092 K21.9 Obstructiv e sleep apnea syndrome 45136614 G47.33 Asthma 621311875 J45.90 9 [id number] Mallory Montalvo MD [address] [place] [address] 05/07/2023 16:40:00 05/07/2023 17:23:46 Hypothyroidism 36481745 E03.9 Mixed hyperlipidemia 267 208248 E78.2 Fatigue 66177265 R53.83 Vitamin D deficiency 347 38737 E55.9 [id number] SKYE [employer] [address] [place] [address] [place] [address] 06/17/2023 15:05:39 06/17/2023 15:48:04 Routine gynecologic examination done 1331549585 9101 Z01.419 Depression screening 171 780560 Z13.31 Hypertensi on screening 146243887 Z13.6 Diet education 06745732 Z71.3 Encourage healthy eating/dec reased fats, sugars, fried foods Screening for malignant neoplasm of breast 244095600 Z12.31 Counseling 891714858 Z71 .82 Encouraged regular exercise 30-40min/d ay 4-5 days/wk Examinatio n of blood pressure 524468227 Z01.31 Body mass index 30+ - obesity 711162243 Z68.35 Obesity 687433986 E66.9 History of total hysterectomy 021574757 Z90.710 Elevated blood-pressure reading without diagnosis of hypertension 165145832 R03.0 [id number] Mallory Montalvo MD [address] [place] [address] 06/24/2023 16:48:24 06/24/2023 17:21:49 Hypertensive disorder 53886371 I10 [id number] Deborah Calix APRN [address] [place] [address] 07/18/2023 09:14:05 07/18/2023 10:00:29 Sore throat 407897447 J02.9 Nasal congestion 9512778 0 R09.81 Influenza caused by Influenza A virus 873325468 J09.X2 Acute sinusitis 12619855 J01.90 [id number] Kylah Cano APRN [address] [place] [address] 08/15/2023 15:50:30 08/15/2023 16:13:44 Dysuria 08209673 R30.0 Acute urin sean tract infection 981412442 N39.0 Increased frequency of urination 861285087 R35.0 Body mass index 30+ - obesity 917639262 Z68.36 Obesity 489625728 E66.9 [id number] [facility] [address] [place] [address] 09/12/2023 10:55:37 09/12/2023 11:58:03 [id number] [facility] [address] [place] [address] 09/23/2023 15:41:39 09/23/2023 17:00:47 [id number] Mallory Montalvo MD [address] [place] [address] 09/16/2023 09:30:38 09/16/2023 10:50:43 Cough 85107945 R05.9 COVID-19 613512063 U07.1 Hypothyroidism 32397676 E03.9 [id number] JAIRO [facility] [address] [place] [address] 10/07/2023 08:08:28 10/07/2023 09:04:37 [id number] Kevin Rowell APRN [address] [place] [address] 09/26/2023 10:48:36 09/26/2023 11:29:57 Body mass index 30+ - obesity 573938332 Z68.36 Obesity 251011757 E66.9 Acute bronchitis 6721009 2 J20.9 Acute Bronchitis - Patient presents [...] and rule out any secondary infections . [id number] Lubna Braxton MD [address] [place] [address] 10/17/2023 13:06:01 10/17/2023 13:58:51 Acute diarrhea 063387754 R19.7 Called [facility]-stool PCR positive for astrovirus . Symptoms consistent .Will give lomotil to help with diarrhea. Labs reviewed. Not orthostati c in office today Cough 77804488 R05.9 Has had persistent dry cough since COVID, Explained this may last up to 12 weeks Acute infe ctious nonbacterial gastroenteritis 498331914 A09 Due to astrovirus , may patient aware this can be contagious [id number] [facility]O [facility] [address] [place] [address] 10/17/2023 14:50:56 10/17/2023 16:25:38 [id number] JAIRO [facility] [address] [place] [address] 10/31/2023 07:55:16 10/31/2023 09:11:52 [id number] Mallory Montalvo MD [address] [place] [address] 10/23/2023 13:03:54 10/23/2023 14:34:00 Mild dehydration 5851523789 108 E86.0 External hemorrhoids 239 86430 K64.4 Blood in urine 93119434 R31.9 [id number] [facility] [address] [place] [address] 11/14/2023 07:59:55 11/14/2023 09:08:50 [id number] [facility] [address] [place] [address] 11/28/2023 07:51:08 11/28/2023 09:07:49 [id number] JAIRO [facility] [address] [place] [address] 12/12/2023 13:44:28 12/12/2023 15:07:23 [id number] Cameron Nolen MD [address] [place] [address] 12/05/2023 16:30:44 12/05/2023 17:13:48 Gastroesophageal reflux disease without esophagitis 182149633 K21.9 Hypothyroidism 63263135 E03.9 Mixed hyperlipidemia 267 491871 E78.2 Obstructiv e sleep apnea syndrome 68376243 G47.33 Asthma 648512560 J45.90 9 Body mass index 30+ - obesity 205799150 Z68.36 Hypertensive disorder 38 363417 I10 Acute bronchitis 5568335 2 J20.9 [id number] JAIRO [facility] [address] [place] [address] 12/26/2023 09:03:17 12/26/2023 10:06:43 [id number] JAIOR [facility] [address] [place] [address] 01/07/2024 14:56:21 01/07/2024 16:10:16 [id number] JAIRO [facility] [address] [place] [address] 01/27/2024 08:01:48 01/27/2024 09:16:10 [id number] JAIRO [facility] [address] [place] [address] 02/10/2024 07:53:55 02/10/2024 09:36:15 [id number] JAIRO [facility] [address] [place] [address] 02/24/2024 07:58:01 02/24/2024 09:12:56 [id number] JAIRO [facility] [address] [place] [address] 03/05/2024 15:59:40 03/05/2024 16:57:41 [id number] JAIRO [facility] [address] [place] [address] 03/19/2024 07:59:40 03/19/2024 09:44:04 [id number] JAIRO [facility] [address] [place] [address] 04/02/2024 08:44:37 04/02/2024 10:11:04 [id number] SKYE [facility]ertomark [facility] [address] [place] [address] 05/18/2024 08:44:03 05/18/2024 09:23:02 Hypothyroidism 17018169 E03.9 Influenza vaccine needed 9396225255 106 Z23 Administra tion of tetanus vaccine 183297011 Z23 [id number] SKYE [employer] [address] [place] [address] 06/22/2024 08:37:44 06/22/2024 09:39:33 Routine gynecologic examination done 8286973219 9101 Z01.419 Depression screening 171 768029 Z13.31 PHQ-9 completed today. Diet education 01163025 Z71.3 Encourage healthy eating/dec reased fats, sugars, fried foods Counseling 800393070 Z71 .82 Exercise counsellin g. Patient encouraged to exercise 30 minutes 5 days a week. Examinatio n of blood pressure 319580297 Z01.30 Screening for malignant neoplasm of breast 570802575 Z12.31 Body mass index 30+ - obesity 166825534 Z68.34 Obesity 878543154 E66.9 Venereal d isease screening 653822948 Z11.3 History of total hysterectomy 373658181 Z90.710 Hypertensive disorder 38 625729 I10 [id number] SKYE [place] [address] [place] [address] 06/29/2024 09:53:12 06/29/2024 10:17:58 Acute maxillary sinusitis 31948728 J01.00 Obese 282190798 E66.9 Body mass index 30+ - obesity 609927954 Z68.34 Obesity 177877520 E66.9 Vitamin D deficiency 347 91600 E55.9 on replacemen t. Folic acid deficiency 19 6175350 E53.8 on replacemen t. [id number] [facility] [address] [place] [id number] 06/30/2024 08:47:49 06/30/2024 11:52:59 [id number] [facility] [address] [place] [address] 07/21/2024 10:51:24 07/21/2024 12:23:56 [id number] SKYE [place] [address] [place] [address] 07/27/2024 08:22:06 07/27/2024 08:44:10 Body mass index 30+ - obesity 762652807 Z68.34 BMI 34.7. Will increase to 0.5 mg/weekly. Folic acid deficiency 19 4053958 E53.8 on replacemen t. due for labs today. Vitamin D deficiency 347 82025 E55.9 on replacemen t. due for labs today. Gastroesop hageal reflux disease without esophagitis 323829877 K21.9 controlled . [id number] SKYE [place] [address] [place] [address] 08/10/2024 08:31:35 08/10/2024 08:50:35 Acute bronchitis 10649294 J20.9 [id number] SKYE [place] [address] [place] [address] 08/27/2024 08:34:14 08/27/2024 08:53:10 Body mass index 30+ - obesity 716923473 Z68.34 BMI 34.1. Weight down 3 pounds. Will increase to 0.5 mg/weekly. Cough 88163417 R05.9 [id number] Trevor Dexter [facility] [address] [place] [address] 09/03/2024 07:58:35 09/03/2024 10:36:04 [id number] SKYE [place] [address] [place] [address] 10/01/2024 16:33:13 10/01/2024 16:49:13 Cough 79355682 R05.9 s/p recent influenza. Anxiety 38912682 F41.9 [id number] Trevor Dexter [facility] [address] [place] [address] 10/01/2024 08:00:05 10/01/2024 09:01:29 [id number] Trevor Dexter [facility] [address] [place] [address] 10/27/2024 07:57:05 10/27/2024 08:59:37 [id number] SKYE [place] [address] [place] [address] 11/16/2024 08:52:12 11/16/2024 09:31:06 Hypothyroidism 34983072 E03.9 on replacemen t. Will check labs. Body mass index 30+ - obesity 507825997 E66.9 6888375 BMI 34.7. Weight up 4 pounds. Will increase to 1.0 mg/weekly. Obesity 239709331 E66.9 Vitamin D deficiency 347 83947 E55.9 29325 currently off replacemen t as Vit D had improved. Will recheck. Folic acid deficiency 19 5885399 E53.8 on replacemen t. due for labs today. Dyslipidemia 961679526 E 78.5 384424 Last ldl 102. Gastroesop hageal reflux disease without esophagitis 463565821 K21.9 controlled on agent. [id number] Trevor Dexter LCSW [facility] [address] [place] [address] 12/31/2024 07:56:35 12/31/2024 09:12:34 [id number] [facility] [address] [place] [address] 02/04/2025 10:31:10 02/04/2025 11:09:36 Body mass index 30+ - obesity 850842528 E66.9 5529069 BMI 33 Hypothyroidism 34127224 E03.9 Is hyperthyro id, will need to decrease synthroid. Gastroesop hageal reflux disease without esophagitis 599503410 K21.9 Controlled on agent.Unde rstands risk of terminal carman PPI. Nausea 371010879 R11.0 14084 has had with increase of GLP-1 increases. Will give zofran that she may have on hand. [id number] Francoise [facility]aga [facility] [place] [address] [place] [address] 05/06/2025 07:55:47 05/06/2025 08:25:38 Body mass index 30+ - obesity 939542301 E66.9 8281521 BMI 29.7Doing well on Wegovy.Ranjan ght is down 27 pounds since initiating . Overweight in adulthood with body mass index of 25 or more but less than 30 076017824 E66.3 Z68.29 7717310948 Nausea 217683589 R11.0 Repeated prescription 18 8241877 Z76.0 569055 Influenza vaccine needed 7260155741 106 Z23 [id number] SKYE Art [employer] [address] [facility] [place] [address] 06/25/2025 08:23:22 06/25/2025 09:23:29 Routine gynecologic examination done 6429515875 9101 Z01.419 Depression screening 171 865722 Z13.31 PHQ-9 completed today. Diet education 99384721 Z71.3 Encourage healthy eating/avalos it unhealthy fats, sugars, fried foods Counseling 071648716 Z71 .82 Encouraged regular exercise 30-40min/d ay 4-5 days/wk Examinatio n of blood pressure 126502678 Z01.30 History of total hysterectomy 203109358 Z90.710 w/ovarian conservati on Hypertensive disorder 38 664681 I10 Overweight in adulthood with body mass index of 25 or more but less than 30 149065663 E66.3 Z68.29 0032950281 Screening for malignant neoplasm of colon 455862259 Z12.11 916540 Breast lump 51909624 N63 .25 9202324002 Irregular heart beat 361 313870 I49.9 6981544 [id number] Francoise Zuluaga APRN [facility] [address] [place] [address] 08/09/2025 07:54:31 08/09/2025 08:27:05 Body mass index 30+ - obesity 472943618 E66.9 3149728 BMI 27.7Doing well on Wegovy.Ranjan ght is down 8 pounds since last visit. Repeated prescription 18 8707819 Z76.0 241783 Hypothyroidism 41402453 E03.9 Is hyperthyro id, will need to decrease synthroid. 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 If found she prefers to have cardiac ablation. Health Concerns Section Related Observation LastModified by Organization Detai ls LastModified Time None Recorded Concern Status LastModified by Organization Details LastModified Time None Recorded Advance Directives Directive N: Payers Insurance Date Sequence Insurance Name Policy Number Policy Franco Covered Member ID Franco Member ID Guarantor Name 08/06/2025 1 [employer] (PPO) [id number] Tiffany Ireland [id number] Tiffany Ireland 03/19/2024 1 [place]) [id number] Tiffany Ireland [id number] Tiffany Devlinz 06/22/2024 1 [place] [id number] Raulito Ireland II [id number] Tiffany Devlinz Notes Date Note Type Note Provider Name and Address Organization Details Recorded Time 11/16/2024 text/html The patient is here today [...] well. Francoise Zuluaga APRN [address], [place], [address], [facility] - [facility] 11/16/2024 09:19:09 02/04/2025 text/html ROS as noted in the HPI Tiffany is here for weight management follow up. She is on Wegovy. She is follow by a weight head golf coach. Her last weight was 177.6 and BMI 32.48. Her goal was 130. Her Wegovy was increased to 1 mg in November. Did have some nausea with that increase but improved. Document reviewed. She would like to increase the dose if possible. No chest pain or soa.Bowels are moving well.Request zofran with next dose increase. Francoise Zuluaga APRN [address], [place], [address], [place] - [facility] 02/04/2025 11:14:22 05/06/2025 text/html ROS as noted in the HPI Patient is here for follow up on weight loss. She wants to discuss increasing it.Portion control is better.Goal weight is around 130. Did have nausea/vomiting last week. This is better, but she'd like a new prescription of zofran. Francoise Zuluaga APRN [address], [place], [address], [place] - [facility] 05/06/2025 08:30:49 06/25/2025 text/html Annual [...] lost approx 50# with Wegovy! Ruth Yahir, DINING CHAIR SE[employer]IMMER [address], [place], [address], [place] - [facility] 06/25/2025 09:41:56 08/09/2025 text/html Patient is here for refills and fasting labs.Weight is down 8 pounds since last visit. Has seen [facility] for breast cyst. Is to have a repeat mammo/US in [address] Ann (electrical project manager at [facility]). Wore a monitor x 7 days. Has pvc's (25%-normal is <12%)). Had cardiac cta which was negative. To have MRI today to see where pvc are originating from. Is on metoprolol XL. Echo showed mild mitral rugitation. Has been referred to Dr. Landeros for colonoscopy. Is awating a call back. Francoise Zuluaga, DINING CHAIR [employer] [address], [place], [address], [place] - [facility] 08/09/2025 08:36:10 OBGyn Episode Ob Episode Information Episode Created Date Number of Fetuses Patient Bloodtype Patient rh Status Prepregnancy Weight lbs Domestic Partner Domestic Partner Phone Father Name Sprinkler Irrigation Equipment Mechanic Status 05/07/20 23 1 CLOSED Fetus Data [...] Domestic Partner Domestic Partner Phone Father Name Sprinkler Irrigation Equipment Mechanic Status 04/09/20 22 1 CLOSED Fetus Data First Name Last Name Admitted to NICU Weight (g) Sex Living Outcome Pediatric Complications Fetus ID Race Codes Race Delivery Type 3288.54 2 M Full Term [id number] Vaginal Niall Calculation Initial Niall Date Initial [...]
--- OUTSIDE RECORDS SUMMARY | 2025-08-09 10:17 | XMS_ITS | Continuity of Care Document ---
Author Organization [facility]ANNA Jorge Roberts SENIOR ENVIRONMENTAL PRACTICE LEADER Address [address] [place] [address] Assessment Encounter Date Assessment Date Assessment LastModified [...] posted in patient waiting rooms and bathrooms. [email or web address] Not available 06/25/2025 09:24:38 Plan of Treatment Reminders Order Date Submit Date Provider Last Modified By Organization Details Last Modified Time Details Appointments Establish ed Patient 20 2024 08:00A M Francoise Zuluaga APRN Not available Not available Not available ANNUAL FUNDRAISER 20 min 2025 08:40A M Ruth Sinclair APRN Not available Not available Not available Lab None recorded. Referral gastroent erologist referral 2024 025 [email or web address] Mukund Landeros MD, [address] [facility] , [facility] [address], [place], [address], 07/27/2025 16:53:58 cardiolog ist referral - Irregular rhythm on AWE, asymptoma tic; 2024 025 MAURILIO Diaz MD, [address] [place] [address] [address], [place], [address], 07/27/2025 10:16:25 Procedures None recorded. Surgeries None recorded. Imaging MAMMO, diagnosti c, digital, bilateral - palpable mobile cluster of densities lateral aspect left breast-3: 00 position 2024 025 MAURILIO Jaeger (Centralized Scheduling), [place], [address], 07/06/2025 15:54:21 US, breast, unilatera l - palpable mobile cluster of densities lateral aspect left breast-3: 00 position 2024 025 MAURILIO Jaeger (Centralized Scheduling), [place], [address], 07/06/2025 15:54:26 Medication Orders None recorded. Patient TargetsNo targets recorded. Patient Instructions Encounter Date Encounter Id Patient Instructions Last Modified By Organization Details Last Modified Time 06/25/2025 [id number] body mass index: care instructions [email or web address] Not available 06/25/2025 09:33:16 learning about healthy weight [email or web address] Not available 06/25/2025 09:33:16 Encourage Self Breast Exam Encourage Healthy eating/regular physical activity Schedule dx mammogram w/left US Encourage adequate calcium intake/Vitamin D Schedule colonoscopy Encourage routine care with PCP Schedule with cardiology [email or web address] Not available 06/25/2025 09:34:[address] Justice Referral for Screening for malignant neoplasm of colon Referring Physician: Ruth Sinclair SENIOR ENVIRONMENTAL PRACTICE LEADER, Encounter Date: 06/25/2025 Financial Recruiter Referral for Ir regular heart beat Irregular rhythm on AWE, asymptomatic; Referring Physician: Ruth Sinclair SENIOR ENVIRONMENTAL PRACTICE LEADER, Encounter Date: 06/25/2025 Results Created Date Observation Date Name Description Value Unit Range Abnormal Flag Note LastModifiedBy Organization Detail LastModifiedTime 07/06/2007/06/2025 , jasmyn miner No observ ation record ed. [email or web address] Heide (Centralized Scheduling) [place] [address], [address], 07/07/2025 13:17:12 07/06/2007/06/2025 MAMMO , diagn ostic , digit al, bilat eral No observ ation record ed. [email or web address] (Central Scheduling) [address] [facility] [place], [address], 07/07/2025 16:57:24 07/06/20 25 07/06/2025 US, breas t, unila teral No observ ation record ed. [email or web address] (Central Scheduling) [address] [facility] [place], [address], 07/07/2025 16:57:25 07/06/2007/06/2025 MAMMO , diagn ostic , digit al, bilat eral No observ ation record ed. [place] (Centralized Scheduling) [address] [place] [address] [place], [address], 07/07/2025 13:17:28 07/11/2007/09/2025 trans -thor acic echoc ardio gram (TTE) (PROC ) No observ ation record ed. [email or web address] [address], [place], [address], 07/11/2025 16:10:27 08/06/20 25 08/03/2025 CT, angio gram, coron sean arter ies, w/ contr ast No observ ation record ed. [email or web address], [place], [address], 08/09/2025 08:39:19 Result Notes None recorded. Problems Name Problem SNOMED Code Status Onset Date Resolution Date Notes Provider Name and Address Organization Details Recorded Time Hypothyroid ism 12197481 Active Mallory Montalvo MD [address], [place], [address], [place] - [facility] 17:11:22 Gastroesoph ageal reflux disease without esophagitis 749050665 Active 2020 Mallory Montalvo MD [address], [place], [address], [place] [facility] 2 17:42:38 Obstructive sleep apnea syndrome 40533398 Active 2021 Mallory Montalvo MD [address], [place], [address], [place] [facility] 2 17:42:38 Mixed hyperlipide bruna 078818534 Active 2021 Mallory Montalvo MD [address], [place], [address], [place] [facility] 3 17:00:17 Body mass index 30+ - obesity 212698092 Active 2022 Francoise Zuluaga , DESIGN CELL ENGINEER [address], [place], [address], [place] [facility] 5 09:04:31 Asthma 069087676 Active 2022 Mallory Montalvo MD [address], [place] , [place], [address], [place] - [facility] 3 17:32:13 History of total hysterectom y 696880028 Active 2022 Ruth Sinclair, DESIGN CELL ENGINEER [address], [place], [address], [place] [facility] 3 15:46:38 Elevated blood-press ure reading without diagnosis of hypertensio n 394024323 Active 2022 Mallory Montalvo MD [address], [place], [address], [place] - [facility] 3 17:11:26 Hypertensiv e disorder 30712454 Active 2022 Mallory Montalvo MD [address], [place], [address], [place] [facility] 3 17:13:11 Acute bronchitis 87628270 Completed 202306/22/2024 Estrellita chinchilla, [place] - [facility] 5 11:47:12 Acute diarrhea 768064361 Completed 202306/22/2024 Estrellita [place]inchilla, [place] - [facility] 4 08:49:06 Cough 50899075 Completed 202306/22/2024 Estrellita Osorio null, [place] - [facility] 5 11:47:33 Acute gastroenter itis 90907741 Completed 202306/22/2025 Estrellita Osoiro null, [place] - [facility] 5 11:47:37 Acute infectious nonbacteria l gastroenter itis 101306847 Completed 202306/22/2025 Estrellita Osorio null, [place] - [facility] 5 11:47:24 External hemorrhoids 40293734 Active 2023 Mallory Montalvo MD [address], [place], [address], [place] [facility] 4 13:59:51 Folic acid deficiency 999671968 Active 2023 Francoise Zuluaga , DESIGN CELL ENGINEER [address], [place], [address], [place] [facility] 4 11:02:55 Vitamin D deficiency 66246076 Active 2023 Francoise Zuluaga , DESIGN CELL ENGINEER [address], [place], [address], [place] [facility] 09:06:21 Acute maxillary sinusitis 67714512 Completed 202306/22/2025 Estrellita chinchilla, [place] - [facility] 5 11:47:35 Obese 330624228 Active 2023 Francoise Zuluaga , DESIGN CELL ENGINEER [address], [place], [address], [place] [facility] 4 10:11:24 Obesity 308057734 Active 2023 Francoise Zuluaga , DESIGN CELL ENGINEER [address], [place], [address], [place] [facility] 4 10:11:26 Acute bronchitis 37621039 Completed 202306/22/2025 Estrellita Osorio null[place] - [facility] 5 11:47:12 Cough 44884057 Completed 202306/22/2025 Estrellita Osorio null, [place] - [facility] 5 11:47:33 Anxiety 42651479 Active 2024 Francoise Zan DESIGN CELL ENGINEER [address], [place], [address], [place] [facility] 5 16:47:04 Dyslipidemi a 241896642 Active 2024 Francoise Zuluaga DESIGN CELL ENGINEER [address], [place], [address], [place] [facility] 5 09:09:59 Hyperkalemi a 69274445 Active 2024 Francoiseelana Zuluaga DESIGN CELL ENGINEER [address], [place], [address], [place] [facility] 5 09:42:55 Nausea 202522707 Active 2024 Francoise Zuluaga DESIGN CELL ENGINEER [address], [place], [address], [place] [facility] 5 08:13:42 Overweight in adulthood with body mass index of 25 or more but less than 30 829280198 Active 2024 Ruth Sinclair APRN [address], [place], [address], [place] [facility] 5 09:25:22 Breast lump 71473994 Active 2024 Ruth Sinclair DESIGN CELL ENGINEER [address], [place], [address], [place] [facility] 09:26:24 Irregular heart beat 698810044 Active 2024 Ruth Sinclair DESIGN CELL ENGINEER [address], [place], [address], [place] [facility] 5 09:30:41 Mild mitral valve regurgitati on 532793153 Active 2024 Francoise Zuluaga DESIGN CELL ENGINEER [address], [place], [address], [place] [facility] 5 16:09:37 Multiple premature ventricular complexes 215223821 Active 2024 Francoise Zuluaga DESIGN CELL ENGINEER [address], [place], [address], [place] [facility] 08:34:02 Problem Notes None recorded. Procedures Surgical History Date Name Laterality Status Provider Name and Address Organization Details Recorded Time 025 Medication Reconcilliation completed Douglasroxann Cristian [place] - [facility] 10/01/2024 07:45:53 025 Date of Last Mammogram completed Ruth Sinclair, DESIGN CELL ENGINEER [address], [place], [address], [place] [facility] 08/24/2024 10:05:24 024 anal fissurectomy completed Estrellita Osorio [place] - [facility] 06/22/2024 08:58:03 024 Medication Reconcilliation completed Maritza Larkin [place] - [facility] 10/23/2023 13:28:53 024 Medication Reconcilliation completed Leigh Nunez [place] - [facility] 10/17/2023 13:13:57 023 Medication Reconcilliation completed Maritza Larkin [place] - [facility] 08/14/2022 16:49:21 010 laparoscopic total hysterectomy completed Estrellita Osorio [place] - [facility] 06/17/2023 15:20:34 010 Date of Last Pap Smear completed Estrellita Schumacher [place] - [facility] 04/09/2022 15:35:45 Eye Surgery completed Estrellita Osorio [place] - [facility] 06/17/2023 15:17:49 Dilation and Curettage, sharp completed Ruth Sinclair, DESIGN CELL ENGINEER [address], [place], [address], [place] [facility] 06/17/2023 15:46:20 Diagnostic Laparoscopy completed Jayna Bhakta [place] - [facility] 08/01/2016 12:18:04 Thyroid Surgery completed Ruth grullon, DESIGN CELL ENGINEER [address], [place], [address], [place] [facility] 06/17/2023 15:45:52 Tubal Ligation completed Estrellita Schumacher [place] - [facility] 04/09/2022 15:37:32 Imaging Results None [...] 4:30PM;U ser: caleb; Indicati on: Cough - (96.8752 00);Prin danielle: 07/04/20 11 Not Available Not [...] on: 03/29/20 10;Indic ation: Allergic Rhinitis - (2079 00);Prin danielle: 12/30/19 10 Not Available Not [...] e 50 mcg/actua tion nasal spray,mary pension Chrisney 1 spray every day by intranas al [...] Updated DateTime 06/25/2025 156.85 cm 29.2 kg/m2 30111.31 g 0 102/60 mm[Hg] Estrellita Osorio [place] - [facility] 08:37:43 Social History Question Answer Notes LastModified by Organization Details LastModified Time Tobacco Smoking Status Never Smoker Jayna [place], [place] - [facility] 08/01/2016 12:16:25 Able To Swim? Yes [email or web address] Information not available 06/17/2023 Do You Have An Advance Directive? No Information not available 08/01/2016 How Many Years Have You Consumed Alcohol? 19 [email or web address] Information not available 06/17/2023 Are You Blind Or Do You Have Difficulty Seeing? No [email or web address] Information not available 06/17/2023 Is Blood Transfusion Acceptable In An Emergency? Yes [email or web address] Information not available 04/09/2022 What Is Your Level Of Caffeine Consumption? Moderate [email or web address] Information not available 06/17/2023 How Much Tobacco [...] COVID-19 While That Person Was Ill? No Information not available 06/17/2023 Have You Been To An Area Known To Be High Risk For COVID-19? No [email or web address] Information not available 06/17/2023 Are You Deaf Or Do You Have Serious Difficulty Hearing? No Information not available 08/01/2016 What Type Of Diet Are You Following? REGULAR Information not available 08/01/2016 Which Illicit Or Recreational Drugs Have You Used? Denies Information not available 05/14/2019 Have You Processed Blood Or Body Fluids From An Ebola Virus Disease Patient Without Appropriate PPE? No [email or web address] Information not available 06/17/2023 Do You Reside In Or Have You Traveled To An Area Where Ebola Virus Transmission Is Active? No [email or web address] Information not available 06/17/2023 What Is The Highest Grade Or Level Of School You Have Completed Or The Highest Degree You Have Received? [id number] [email or web address] Information not available 06/22/2024 Swimming/diving Yes [email or web address] Informati on not available 06/17/2023 Have There Been Any Changes To Your Family Or Social Situation? No [email or web address] Information not available 06/17/2023 What Is The Fluoride Status Of Your Home? Unknown Information not available 06/17/2023 Hard Of Hearing Or Deaf In One Or Both Ears? No [email or web address] Information not available 06/17/2023 Have You Recently Or Are You Planning To Travel To An Area With Zika Virus? No [email or web address] Information not available 06/17/2023 How Many Years Have You Used Illicit Or Recreational Drugs? 0 [email or web address] Information not available 06/17/2023 Legally Blind In One Or Both Eyes? No [email or web address] Information not available 06/17/2023 Live Alone Or With Others? With Others Information not available 06/17/2023 Do You Have A Medical Power Of Cathode Maker? No [email or web address] Information not available 06/17/2023 What Was The Date Of Your Most Recent Tobacco Screening? 06/25/2025 Information not available 06/25/2025 How Many Children Do You Have? 1 Information not available 05/14/2019 Do You Use Protection During Sex? No [email or web address] Information not available 06/17/2023 Do You Use Protection Against STDs? No [email or web address] Information not available 04/09/2022 What Is Your Relationship Status? [email or web address] Information not available 06/22/2024 Do You Use Your Seat Belt Or Car Seat Routinely? Yes [email or web address] Information not available 06/17/2023 Seat Belts Used Routinely Yes [email or web address] Information not available 06/17/2023 Are You Sexually Active? Yes Information not available 06/25/2025 Smoke Alarm In Home Yes [email or web address] Information not available 06/17/2023 Do You Have Smoke And Carbon Monoxide Detectors In Your Home? Yes [email or web address] Information not available 04/09/2022 Are You Passively Exposed To Smoke? No Information not available 05/14/2019 How Much Tobacco Do You Smoke? No [email or web address] Information not available 06/17/2023 General Stress Level Low [email or web address] Information not available 06/17/2023 Do You Use Sunscreen Routinely? No [email or web address] Information not available 06/17/2023 Has Tobacco Cessation Counseling Been Provided? Yes Information not available 06/25/2025 On What Date Was Tobacco Cessation Counseling Provided? 06/25/2025 [email or web address] Information not available 06/25/2025 Do You Have Difficulty Walking Or Climbing Stairs? No Information not available 06/17/2023 What Contraceptive Method Was Reported At Start Of This Visit? Female Sterilization Hysterectomy [email or web address] Information not available 06/17/2023 Do You Want To Talk About Contraception Or Prevention During Your Visit Today? No - I Do Not Want To Talk About Contraception Today Because I Am Here For Something Else [email or web address] Information not available 06/17/2023 Do You Have Any Future Plans To Get ? No, I Don't Want To Become [email or web address] Information not available 06/17/2023 Sex: Female Functional [...] 05/14/2019 Do you have transportation difficulties? No [email or web address] Information not available 06/17/2023 Are you able to care for yourself independently? Yes Information not available 08/01/2016 Do you have difficulty dressing, bathing, grooming, or toileting? No Information not available 06/17/2023 Do you or have you ever used e-cigarettes or vape? Never used electronic cigarettes Information not available 05/14/2019 What is your exercise level? Occasional [email or web address] Information not available 06/17/2023 Do you use any illicit or recreational drugs? No [email or web address] Information not available 06/17/2023 Do you or have you ever used any other forms of tobacco or nicotine? No foiyiyh30 Information not available 06/17/2023 What is your level of alcohol consumption? Occasional [email or web address] Information not available 04/09/2022 What is your status? Not [email or web address] Information no t available 06/17/2023 Are you able to walk independently without assistance or assistive devices? YESWOREST Information not available 06/17/2023 Do you have difficulty doing errands alone? No [email or web address] Information not available 06/17/2023 What is your occupation? [employer] [email or web address] Information not available 06/17/2023 Mental Status Question Answer Note LastModified by Organizat ion Details LastModified Time Do you feel stressed (tense, restless, nervous, or anxious, or unable to sleep at night)? [id number] [email or web address] Information not available 06/22/2024 Do you have difficulty concentrating, remembering or making decisions? No [email or web address] Information no t available 06/17/2023 Family History Relationship Description Onset Age of this Age Resolved Age Notes LastModified by Organization Details LastModified Time Maternal Grandmother Cerebrovascu lar accident Not available 12:15:03 Maternal Grandmother Hypertensive disorder Not available 2015 12:15:30 Maternal Grandmother Myocardial infarction [email or web address]-251 Not available 06/25 08:23:25 Maternal Grandmother Heart disease 38 53 [email or web address] Not available 2022 15:09:14 Paternal Grandfather Neoplasm of prostate API-251 Not available 2024 08:23:25 Paternal Grandfather Malignant neoplasm of lung [email or web address] Not available 2022 15:22:24 Mother Asthma [email or web address] Not available 06/17/2023 15:09:14 Mother Anxiety disorder [email or web address] Not available 2022 15:22:24 Mother Depressive disorder [email or web address] Not available 2022 15:22:24 Mother Obesity [email or web address] Not available 06/17/2023 15:09:14 Mother Substance abuse [email or web address] Not available 2022 15:09:14 Son Asthma Not available 06/17/2023 15:09:14 Unspecified Relation Disorder of thyroid gland [email or web address]-251 Not available 2024 08:23:25 Paternal Aunt Malignant neoplasm of transverse colon [email or web address]-251 Not available 2024 08:23:25 Maternal Aunt Malignant neoplasm of breast Not available 2023 08:42:35 Sister Disorder of thyroid gland [email or web address] Not available 2023 08:42:35 Father Polyp of [...] colitis N Cerebrovascular Disease N Depression N Guillain-[place] N Sleep Apnea Y Aneurysm N Bronchitis [...] virus, quadrivalent, preservative 1 completed Maritza Larkin [facility] 05/10/2021 17:42:04 influenza, unspecified formulation 5 completed Not Available [facility] 09/26/2023 10:48:58 Tdap 4 completed Francoise Zuluaga, SKYE [address], [place], [address], [facility] 05/18/2024 10:49:30 Influenza, split virus, trivalent, PF 4 completed Charissa Baca [facility] 06/29/2024 08:52:46 Influenza, split virus, trivalent, PF 5 completed Francoise Zuluaga, DESIGN CELL ENGINEER [address], [place], [address], [facility] 05/06/2025 08:28:15 COVID-19, mRNA, LNP-S, PF, [...] split virus, quadrivalent, PF 3 completed Estrellita Niñoelmark anthony null, [place] - [facility] 07/18/2023 09:31:26 Past Encounters Encounter ID Performer Location Encounter Start Date Encounter Closed Date Diagnosis/Indication Diagnosis SNOMED-CT Code Diagnosis ICD10 Code Diagnosis IMO Codes Diagnosis Note [id number] SKYE Art SENIOR ENVIRONMENTAL PRACTICE LEADER [address] [facility] [place] [address] 06/25/2025 08:23:22 06/25/2025 09:23:29 Routine gynecologic examination done 4685571196 9101 Z01.419 Depression screening 171 179056 Z13.31 PHQ-9 completed today. Diet education 79149904 Z71.3 Encourage healthy eating/avalos it unhealthy fats, sugars, fried foods Counseling 958213392 Z71 .82 Encouraged regular exercise 30-40min/d ay 4-5 days/wk Examinatio n of blood pressure 499906694 Z01.30 History of total hysterectomy 179945535 Z90.710 w/ovarian conservati on Hypertensive disorder 38 758950 I10 Overweight in adulthood with body mass index of 25 or more but less than 30 572571176 E66.3 Z68.29 9528815690 Screening for malignant neoplasm of colon 384265558 Z12.11 301240 Breast lump 89310316 N63 .25 2342603578 Irregular heart beat 361 405661 I49.9 [id number] Health Concerns Section Related Observation LastModified by Organization Detai ls LastModified Time None Recorded Concern Status LastModified by Organization Details LastModified Time None Recorded Payers Encounter Date Sequence Insurance Name Policy Number Policy Franco Covered Member ID Franco Member ID Guarantor Name 06/25/2025 1 [employer] (PPO) [id number] 2 Tiffany Ireland [id number] Tiffany Ireland Notes Date Note Type [...] lost approx 50# with [employer]! Ruth Sinclair, DESIGN CELL ENGINEER [address], [place], [address], [place] - [facility] 06/25/2025 09:41:56 OBGyn Episode No OBEpisode recorded.
--- OUTSIDE RECORDS SUMMARY | 2025-08-09 10:17 | XMS_ITS | Encounter Summary ---
Author Organization [place] [address] Care Team Providers Care Driver Sales Name Role Phone Unavailable Primary Care Provider Unavailabl e Reason for Visit * Reason Onset Date Comments Appointment Needed 07/29/2025 Encounter Details Date Type Department Care Team ([facility] Contact Info) Description 07/29/2025 Telephone [facility] [place] [phone] Reba Babb [place] Appointment Needed Social History [...] 12:52 PM EST ----- Message from Sole Vlale PA-C sent at 07/29/2025 12:11 PM EST ----- 6 months clinic follow-up Left Dx mammo and Left breast ultrasound same day as visit Assist: None: Independent; :n/a Prefers 10:30, 11a or 11:30a on Saturday or documented in this encounter Plan of Treatment Upcoming Encounters Date Type Department Care Team (Late st Contact Info) Description 01/31/2026 10:00 AM EDT Appointment [facility] [place] [id number] Sole Valle PA-C [address] [place] [address] [address] [place] [address] 01/31/2026 10:30 AM EDT Appointment [facility] [place] [id number] Sole Valle PA-C [address] [place] [address] [address] [place] [address] 01/31/2026 11:30 AM EDT Appointment [facility] [place] [id number] Sole Valle PA-C [address] [place] [address] [address] [place] [address] documented as of this encounter Visit Diagnoses Not on filedocumented in this encounter
--- OUTSIDE RECORDS SUMMARY | 2025-08-09 10:17 | XMS_ITS | Continuity of Care Document ---
Author Organization Formerly [facility] Address [address] [place] [address] Assessment No assessment recorded. Plan of Treatment Reminders Order Date Submit Date Provider Last Modified By Organization Details Last Modified Time Details Appointments Establish ed Patient 20 2024 08:00A Kera Zuluaga APRN Not available Not available Not available ANNUAL TAX INTERN 20 min 2025 08:40A Kera Sinclair APRN Not available Not available Not available Lab vitamin D, 25-hydrox y, total, serum 2024 025 [facility], [address] [place] [address], [id number], 08/09/2025 08:18:27 TSH + free T4, serum 2024 025 [facility], [address] [place] [address], [id number], 08/09/2025 08:18:27 BMP, serum or plasma 2024 025 [facility], [address] [place] [address], [address], 08/09/2025 08:18:26 lipid panel, serum 2024 025 [facility], [address] [place] [address], [address], 08/09/2025 08:18:27 Referral None recorded. Procedures None recorded. Surgeries None recorded. Imaging None recorded. Medication Orders ondansetr on 8 mg disintegr ating tablet 2024 [facility], [address] [place], [address], 08/09/2025 08:12:47 Wegovy 2.4 mg/0.75 mL subcutane ous pen injector 2024 025 [facility], [address] [place], [address], 08/09/2025 08:12:48 Patient TargetsNo targets recorded. Patient Instructions Encounter Date Encounter Id Patient Instructions Last Modified By Organization Details Last Modified Time 08/09/2025 [id number] hypothyroidism: care instructions [email or web address] Not available 08/09/2025 08:18:18 Will call with labs/recommendati ons. RTC in 3 months or sooner as needed. [email or web address] Not available 08/09/2025 08:35:45 Reason for Referral None Reported. Results Created Date Observation Date Name Description Value Unit Range Abnormal Flag Note LastModifiedBy Organization Detail LastModifiedTime 07/11/20 25 07/09/2025 trans -thor acic echoc ardio gram (TTE) (PROC ) No observ ation record ed. [facility] [address], [place], [address], 07/11/2025 16:10:27 08/06/20 25 08/03/2025 CT, angio gram, coron sean arter ies, w/ contr ast No observ ation record ed. [email or web address] [place] [address], [place], [address], 08/09/2025 08:39:19 Result Notes None recorded. Problems Name Problem SNOMED Code Status Onset Date Resolution Date Notes Provider Name and Address Organization Details Recorded Time Hypothyroid ism 21630686 Active Mallory Montalvo MD [address], [place], [address], [place] - [facility] 3 17:11:22 Gastroesoph ageal reflux disease without esophagitis 837219969 Active 2020 Mallory Montalvo MD [address], [place], [address], [place] [facility] 2 17:42:38 Obstructive sleep apnea syndrome 63385751 Active 2021 Mallory Montalvo MD [address], [place], [address], [place] [facility] 2 17:42:38 Mixed hyperlipide bruna 937200849 Active 2021 Mallory Montalvo MD [address], [place], [address], [place] [facility] 3 17:00:17 Body mass index 30+ - obesity 876370858 Active 2022 Francoise Zuluaga , STAVE LOG CUT OFF SAW OPERATOR [address], [place], [address], [place] [facility] 5 09:04:31 Asthma 635073247 Active 2022 Mallory Montalvo MD [address], [place], [address], [place] [facility] 3 17:32:13 History of total hysterectom y 691939271 Active 2022 Ruth Sinclair, STAVE LOG CUT OFF SAW OPERATOR [address], [place], [address], [place] [facility] 3 15:46:38 Elevated blood-press ure reading without diagnosis of hypertensio n 546143447 Active 2022 Mallory Montalvo MD [address], [place], [address], [place] [facility] 3 17:11:26 Hypertensiv e disorder 98591840 Active 2022 Mallory Montalvo MD [address], [place], [address], [place] [facility] 3 17:13:11 Acute bronchitis 20536500 Completed 202306/22/2024 Estrellita Osorio [facility], [place] - [facility] 5 11:47:12 Acute diarrhea 127083492 Completed 202306/22/2024 Estrellita Osorio null, [place] - [facility] 4 08:49:06 Cough 05764852 Completed 202306/22/2024 Estrellita Osorio null, [place] - [facility] 5 11:47:33 Acute gastroenter itis 93403261 Completed 202306/22/2025 Estrellita Osorio null, [place] - [facility] 5 11:47:37 Acute infectious nonbacteria l gastroenter itis 474893693 Completed 202306/22/2025 Estrellita Osorio null, [place] - [facility] 5 11:47:24 External hemorrhoids 30802555 Active 2023 Mallory Montalvo MD [address], [place], [address], [place] [facility] 4 13:59:51 Folic acid deficiency 967200083 Active 2023 Francoise Zuluaga APRN [address], [place], [address], [place] [facility] 4 11:02:55 Vitamin D deficiency 52085955 Active 2023 Francoise Zuluaga APRN [address], [place], [address], [place] [facility] 5 09:06:21 Acute maxillary sinusitis 93193030 Completed 202306/22/2025 Estrellita Osorio null, [place] - [facility] 5 11:47:35 Obese 553821900 Active 2023 Francoise Zuluaga APRN [address], [place], [address], [place] [facility] 4 10:11:24 Obesity 783791013 Active 2023 Francoise Zuluaga APRN [address], [place], [address], [place] [facility] 4 10:11:26 Acute bronchitis 60015461 Completed 202306/22/2025 Estrellita Osorio null, [place] [facility] 5 11:47:12 Cough 06171735 Completed 202306/22/2025 Estrellita Jo chinchilla, [place] - [facility] 5 11:47:33 Anxiety 91103461 Active 2024 Francoise Cisnerosoberts , STAVE LOG CUT OFF SAW OPERATOR [address], [place], [address], [place] [facility] 5 16:47:04 Dyslipidemi a 465384897 Active 2024 Francoise Cisnerosoberts , STAVE LOG CUT OFF SAW OPERATOR [address], [place], [address], [place] [facility] 5 09:09:59 Hyperkalemi a 74752469 Active 2024 Francoise Cisnerosoberts , STAVE LOG CUT OFF SAW OPERATOR [address], [place], [address], [place] [facility] 5 09:42:55 Nausea 814824352 Active 2024 Francoise Cisnerosoberts , STAVE LOG CUT OFF SAW OPERATOR [address], [place], [address], [place] [facility] 5 08:13:42 Overweight in adulthood with body mass index of 25 or more but less than 30 495468742 Active 2024 Ruth LuASAEL hamiltonN [address], [place], [address], [place] [facility] 5 09:25:22 Breast lump 41807134 Active 2024 Ruth Sinclair APRN [address], [place], [address], [place] [facility] 5 09:26:24 Irregular heart beat 367417101 Active 2024 Ruth Sinclair STAVE LOG CUT OFF SAW OPERATOR [address], [place], [address], [place] [facility] 5 09:30:41 Mild mitral valve regurgitati on 353956258 Active 2024 Francoiseelana Zuluaga STAVE LOG CUT OFF SAW OPERATOR [address], [place], [address], [place] [facility] 16:09:37 Multiple premature ventricular complexes 517691696 Active 2024 Francoise Zuluaga , STAVE LOG CUT OFF SAW OPERATOR [address], [place], [address], [place] [facility] 08:34:02 Problem Notes None recorded. Procedures Surgical History Date Name Laterality Status Provider Name and Address Organization Details Recorded Time 025 Medication Reconcilliation completed Makenzie Foster [place] - [facility] 10/01/2024 07:45:53 025 Date of Last Mammogram completed Ruth Sinclair, STAVE LOG CUT OFF SAW OPERATOR [address], [place], [address], [place] - [facility] 08/24/2024 10:05:24 024 anal [...] Dilation and Curettage, sharp completed Ruth Sinclair, STAVE LOG CUT OFF SAW OPERATOR [address], [place], [address], [place] [facility] 06/17/2023 15:46:20 Diagnostic Laparoscopy completed Jayna Bhakta [place] - [facility] 08/01/2016 12:18:04 Thyroid Surgery completed Ruth grullon, STAVE LOG CUT OFF SAW OPERATOR [address], [place], [address], [place] [facility] 06/17/2023 15:45:52 Tubal Ligation [...] 4:30PM;U ser: caleb; Indicati on: Cough - (16.1782 00);Prin danielle: 07/04/20 11 Not Available Not [...] nued on: 02/11/20 15 12:52PM; User: kenneth Bassett on: 11/01/19 15;Pharm Ginna ied: 09/01/19 15 9:25AM Not Available Not [...] on: 03/29/20 10;Indic ation: Allergic Rhinitis - (79 );Prin danielle: 12/30/19 10 Not Available Not [...] e 50 mcg/actua tion nasal spray,[facility] [place] 1 spray every day by intranas al [...] 2023 active Not Available Not Available Not Elia johnson Contrave 8 mg-90 mg tablet,ex tended release [...] 2024 active Not Available Not Available Not Elia labfrankie Wegovy 1.7 mg/0.75 mL subcutane ous pen [...] Updated DateTime 5 156.85 cm 27.7 kg/m2 71077.6 6 g 75 /min 99 % 18 /min 0 118/72 mm[Hg] Makenzie Foster [place] - [facility] 5 08:00:48 Social History Question Answer Notes LastModified by Organization Details LastModified Time Tobacco Smoking Status Never Smoker Jayna Bhakta amor [place] - [facility] 08/01/2016 12:16:25 Able To Swim? Yes [email or web address] Information not available 06/17/2023 Do You Have An Advance Directive? No Information not available 08/01/2016 How Many Years Have You Consumed Alcohol? 19 [email or web address] Information not available 06/17/2023 Are You Blind Or Do You Have Difficulty Seeing? No [email or web address] Information not available 06/17/2023 Is Blood Transfusion Acceptable In An Emergency? Yes [email or web address] Information not available 04/09/2022 What Is Your Level Of Caffeine Consumption? Moderate [email or web address] Information not available 06/17/2023 How Much Tobacco Do You Chew? None Information not available 05/14/2019 In The 14 Days Before Symptom Onset, Have You Had Close Contact With A Laboratory-conf irmed COVID-19 While That Case Was Ill? No [email or web address] Information not available 06/17/2023 In The 14 Days Before Symptom Onset, Have You Had Close Contact With A Person Who Is Under Investigation For COVID-19 While That Person Was Ill? No [email or web address] Information not available 06/17/2023 Have You Been To An Area Known To Be High Risk For COVID-19? No [email or web address] Information not available 06/17/2023 Are You Deaf Or Do You Have Serious Difficulty Hearing? No Information not available 08/01/2016 What Type Of Diet Are You Following? REGULAR Information not available 08/01/2016 Which Illicit Or Recreational Drugs Have You Used? Denies Information not available 05/14/2019 Have You Processed Blood Or Body Fluids From An Ebola Virus Disease Patient Without Appropriate PPE? No [email or web address] Information not available 06/17/2023 Do You Reside In Or Have You Traveled To An Area Where Ebola Virus Transmission Is Active? No [email or web address] Information not available 06/17/2023 What Is The Highest Grade Or Level Of School You Have Completed Or The Highest Degree You Have Received? FR70034-3 [email or web address] Information not available 06/22/2024 Swimming/diving Yes [email or web address] Informati on not available 06/17/2023 Have There Been Any Changes To Your Family Or Social Situation? No Information not available 06/17/2023 What Is The Fluoride Status Of Your Home? Unknown [email or web address] Information not available 06/17/2023 Hard Of Hearing Or Deaf In One Or Both Ears? No [email or web address] Information not available 06/17/2023 Have You Recently Or Are You Planning To Travel To An Area With Zika Virus? No [email or web address] Information not available 06/17/2023 How Many Years Have You Used Illicit Or Recreational Drugs? 0 [email or web address] Information not available 06/17/2023 Legally Blind In One Or Both Eyes? No [email or web address] Information not available 06/17/2023 Live Alone Or With Others? With Others [email or web address] Information not available 06/17/2023 Do You Have A Medical Power Of Electrical Lineworker? No [email or web address] Information not available 06/17/2023 What Was The Date Of Your Most Recent Tobacco Screening? 06/25/2025 [email or web address] Information not available 06/25/2025 How Many Children Do You Have? 1 Information not available 05/14/2019 Do You Use Protection During Sex? No [email or web address] Information not available 06/17/2023 Do You Use Protection Against STDs? No Information not available 04/09/2022 What Is Your Relationship Status? [email or web address] Information not available 06/22/2024 Do You Use Your Seat Belt Or Car Seat Routinely? Yes [email or web address] Information not available 06/17/2023 Seat Belts Used Routinely Yes oeutlqm55 Information not available 06/17/2023 Are You Sexually Active? Yes sfdxves82 Information not available 06/25/2025 Smoke Alarm In Home Yes urnazyf52 Information not available 06/17/2023 Do You Have Smoke And Carbon Monoxide Detectors In Your Home? Yes [email or web address] Information not available 04/09/2022 Are You Passively Exposed To Smoke? No Information not available 05/14/2019 How Much Tobacco Do You Smoke? No uxwzjjl15 Information not available 06/17/2023 General Stress Level Low [email or web address] Information not available 06/17/2023 Do You Use Sunscreen Routinely? No Information not available 06/17/2023 Has Tobacco Cessation Counseling Been Provided? Yes yfnkvla56 Information not available 06/25/2025 On What Date Was Tobacco Cessation Counseling Provided? 06/25/2025 [email or web address] Information not available 06/25/2025 Do You Have Difficulty Walking Or Climbing Stairs? No [email or web address] Information not available 06/17/2023 What Contraceptive Method Was Reported At Start Of This Visit? Female Sterilization Hysterectomy guvspft14 Information not available 06/17/2023 Do You Want To Talk About Contraception Or Prevention During Your Visit Today? No - I Do Not Want To Talk About Contraception Today Because I Am Here For Something Else dymsqxx05 Information not available 06/17/2023 Do You Have Any Future Plans To Get ? No, I Don't Want To Become [email or web address] Information not available 06/17/2023 Sex: Female Functional [...] difficulty dressing, bathing, grooming, or toileting? No bggbidj55 Information not available 06/17/2023 Do you or have you ever used e-cigarettes or vape? Never used electronic cigarettes Information not available 05/14/2019 What is your exercise level? Occasional [email or web address] Information not available 06/17/2023 Do you use any illicit or recreational drugs? No Information not available 06/17/2023 Do you or have you ever used any other forms of tobacco or nicotine? No okznnni76 Information not available 06/17/2023 What is your level of alcohol consumption? Occasional [email or web address] Information not available 04/09/2022 What is your status? Not Information no t available 06/17/2023 Are you able to walk independently without assistance or assistive devices? YESWOREST [email or web address] Information not available 06/17/2023 Do you have difficulty doing errands alone? No [email or web address] Information not available 06/17/2023 What is your occupation? [employer] wnwiulb28 Information not available 06/17/2023 Mental Status Question Answer Note LastModified by Organizat ion Details LastModified Time Do you feel stressed (tense, restless, nervous, or anxious, or unable to sleep at night)? NS63391-7 [email or web address] Information not available 06/22/2024 Do you have difficulty concentrating, remembering or making decisions? No [email or web address] Information no t available 06/17/2023 Family History [...] 08:23:25 Paternal Grandfather Malignant neoplasm of lung [email or web address] Not available 2022 15:22:24 Mother Asthma [email or web address] Not available 06/17/2023 15:09:14 Mother Anxiety disorder tfvfomj30 Not available 2022 15:22:24 Mother Depressive disorder [email or web address] Not available 2022 15:22:24 Mother Obesity nudzrhq21 Not available 06/17/2023 15:09:14 Mother Substance abuse wzkymgt19 Not available 2022 15:09:14 Son Asthma Not available 06/17/2023 15:09:14 Unspecified Relation Disorder of thyroid gland API-251 Not available 2024 08:23:25 Paternal Aunt Malignant neoplasm of transverse colon API-251 Not available 2024 08:23:25 Maternal Aunt Malignant neoplasm of breast ihwdmlp85 Not available 2023 08:42:35 Sister Disorder of thyroid gland whmphtu45 Not available 2023 08:42:35 Father Polyp of [...] colitis N Cerebrovascular Disease N Depression N Guillain-[place] N Sleep Apnea Y Aneurysm N Bronchitis [...] virus, quadrivalent, preservative 1 completed Maritza [facility] 05/10/2021 17:42:04 influenza, unspecified formulation 5 completed Not Available [facility] 10:48:58 Tdap 4 completed Francoise Zuluaga, STAVE LOG CUT OFF SAW OPERATOR [address], [place], [address], [place] - [facility] 05/18/2024 10:49:30 Influenza, split virus, trivalent, PF 4 completed Charissa Baca null, [facility] 06/29/2024 08:52:46 Influenza, split virus, trivalent, PF 5 completed Francoise Zuluaga, STAVE LOG CUT OFF SAW OPERATOR [address], [place], [address], [place] [facility] 05/06/2025 08:28:15 COVID-19, mRNA, [...] trivalent, PF 2 completed Estrellita Schumacher null, [place] [facility] 07/18/2023 09:31:26 Influenza, split virus, quadrivalent, PF 3 completed Estrellita Schumacher null, [place] [facility] 07/18/2023 09:31:26 Past Encounters Encounter ID Performer Location Encounter Start Date Encounter Closed Date Diagnosis/Indication Diagnosis SNOMED-CT Code Diagnosis ICD10 Code Diagnosis IMO Codes Diagnosis Note [id number] SKYE Morfin [facility] [address] [place] [address] 08/09/2025 07:54:31 08/09/2025 08:27:05 Body mass index 30+ - obesity 317813064 E66.9 2506577 BMI 27.7Doing well on Wegovy.Ranjan ght is down 8 pounds since last visit. Repeated prescription 18 9714334 Z76.0 848714 Hypothyroidism 37805993 E03.9 Is hyperthyro id, will need to decrease synthroid. History of nutritional deficiency 5400199516 9104 Z86.39 81896004 Multiple p remature ventricular complexes 915749847 I49.3 98893 Is on metoprolol .To have MRI to determine where they are originatin g. If found she prefers to have cardiac ablation. Health Concerns Section Related Observation LastModified by Organization Detai ls LastModified Time None Recorded Concern Status LastModified by Organization Details LastModified Time None Recorded Payers Encounter Date Sequence Insurance Name Policy Number Policy Franco Covered Member ID Franco Member ID Guarantor Name 08/09/2025 1 [employer] (PPO) [id number] 2 Tiffany Ireland [id number] Tiffany Ireland Notes Date Note Type Note Provider Name and Address Organization Details Recorded Time 08/09/2025 text/html Patient is here for refills and fasting labs.Weight is down 8 pounds since last visit. Has seen [facility] for breast cyst. Is to have a repeat mammo/US in [address] 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 Wore a monitor x 7 days. Has pvc's (25%-normal is <12%)). Had cardiac cta which was negative. To have MRI today to see where pvc are originating from. Is on metoprolol XL. Echo showed mild mitral rugitation. Has been referred to Dr. Landeros for colonoscopy. Is awating a call back. Francoise Zuluaga, STAVE LOG CUT OFF SAW OPERATOR [address], [place], [address], [place] [facility] 08/09/2025 08:36:10 OBGyn Episode No OBEpisode recorded.
--- NOTE | 2025-08-09 10:30 | MR_ITS ---
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 Software platform sequences were performed using the Siemens Asoka MR B19 platform. A set of three-plane, low-resolution, large [id number] localizers were initially acquired. Then axial, coronal, sagittal TrueFISP, as well as axial HASTE images, were obtained. These were followed by gated TrueFISP breathold cinematic sequences obtained in the short axis with 8 mm slices and 2 mm gaps, 2-chamber (vertical long axis), 3-chamber, 4-chamber (horizontal long axis). A bolus of contrast was injected intravenously with first-pass sequences obtained in the short axis and four-chamber planes. After approximately 10 minutes, a TI residential advisor sequence was performed to determine the optimal TI time. Using the optimized TI time, delayed contrast enhancement segmented inversion???recovery TurboFLASH sequences were obtained in the short axis, 2-chamber, 3-chamber, and 4-chamber projections. 2D-velocity phase mapping was performed. Functional parameters were calculated by offline analysis on an independent workstation ([employer] Platform, [employer]). Contrast: ProHance??? (Gadoteridol) FINDINGS MORPHOLOGY AND FUNCTION Left ventricle: The left ventricle is normal in size. The indexed left ventricular end-diastolic volume (LVEDVi) is 56 ml/m2 (reference range 57-105 ml/m2 in males, 56-96 ml/m2 in females). Normal left ventricular systolic function is present. There is normal left ventricular wall thickness. There are no regional wall motion abnormalities noted. LVEF is calculated at 66.4% (reference range 57-77%). Right ventricle: The right ventricle is normal in size. The indexed right ventricular end-diastolic volume (RVEDVi) is 48 ml/m2 (reference range 61-121 ml/m2 in males, 48-112 ml/m2 in females). Normal right ventricular systolic function is present. RVEF is calculated at 62.5% (reference range 52-72% in males, 51-71% in females). Atria: The left atrium is normal in size. The maximum indexed left atrial volume is 23 ml/m2 (reference range 26-52 ml/m2 in males, 27-53 ml/m2 in females). The right atrium is normal in size. The maximum indexed right atrial volume is 21 ml/m2 (reference range 18-90 ml/m2). Aorta: The diameter of the aortic annulus is normal, measuring 19 mm (coronal view reference range 21-30 mm in males, 19-27 mm in females). The diameter of the aortic sinus is normal, measuring 29 mm (coronal view reference range 25-42 mm in males, 24-36 mm in females). The diameter of the sinotubular junction is normal, measuring 23 mm (coronal view reference range 18-32 mm in males, 18-28 mm in females). The diameters of the ascending and descending thoracic aorta are normal. Main pulmonary artery: The main pulmonary artery diameter is normal. Pericardium: The pericardial thickness is normal. The pericardial thickness measures 1.5 mm (normal < 4.0 mm). There is no pericardial effusion. VALVES The valvular morphologies in the visualized sequences appear normal. There is no significant valvular stenosis or regurgitation of the mitral, aortic, tricuspid, or pulmonic valve noted visually. Systolic anterior motion of the mitral valve is not visualized. Ratio of pulmonary to systemic flow, Qp:Qs ratio = 0.8 (normal < or = 1.2, hemodynamically significant shunt > 1.5), demonstrating no evidence of hemodynamically significant shunt. TISSUE CHARACTERIZATION Resting Perfusion: Normal myocardial blood flow at rest. No evidence of resting hypoperfusion. Myocardial Fibrosis and/or edema: Normal gadolinium kinetics are present. No evidence of late gadolinium enhancement is noted, consistent with absence of myocardial scarring, infarction, or necrosis. T2-weighted imaging demonstrates no evidence of myocardial edema or inflammation. OTHER No other significant findings are noted. However, this exam is focused on the cardiac structure and function. IMPRESSION Normal LV size with normal LV systolic function. LVEDVi= 56 ml/m2 and LVEF= 66.4%. Normal RV size with normal RV systolic function. RVEDVi= 48 ml/m2 and RVEF= 62.5%. No atrial enlargement. No CMR evidence of myocardial scarring, infarction, or necrosis. No evidence of myocardial edema or inflammation. Perfusion analysis demonstrates normal blood flow at rest with no evidence of resting hypoperfusion. Ratio of pulmonary to systemic flow, Qp:Qs ratio = 0.8 (normal < or = 1.2, hemodynamically significant shunt > 1.5), demonstrating no evidence of hemodynamically significant shunt. COMPARISON None CRITICAL RESULT None COMMUNICATION The above findings were relayed to the patient at the time of the routine outpatient cardiology follow-up visit, prior to dictation of this report. The findings of this cardiac MR were reviewed, reported, and signed by Phani Ibarra MD (Batch Plant Supervisor). Conclusion Electronically signed by : Marissa Ibarra MD 08/19/2025 12:31:09
[2025-08-09] MEDS: SODIUM CHLORIDE 0.9% 10ML SYR (RAD ONLY) 10 ML IV (11:46)
[2025-08-09] MEDS: 0.9 % SODIUM CHLORIDE 50 ML VIAL 20 ML IV (11:46)
[2025-08-09] MEDS: GADOTERIDOL INJ 20ML SYRINGE 16 ML IV (11:46)
== END 2025-08-09 23:59 | disposition home or self-care (01) ==
LOC: RAD 10:06
PROVIDERS: PCP Nurse Practitioner Adult Health; Visit Provider Internal Medicine
DX: I49.3 Ventricular premature depolarization (principal); R94.31 Abnormal electrocardiogram [ECG] [EKG]
CPT/HCPCS: 75561; A9576